=== PATIENT | male | born 1945 | race Caucasian/White ===

== ENCOUNTER 2019-12-31 11:23 | Inpatient (IN) | payer MEDICARE, MEDICAID ==
[~2019-12-31] VITALS: Ht 185.4 cm; Wt 93.9 kg
[~2019-12-31 11:23] MED LIST: ACET325T38 PO; IBUP800T26; LISI1TAB6 PO; MELO-15; MELO-170 PO; METF500T4 PO; OMEG1000 PO; PIOG15TA22 PO; SIMV40TA4 PO; TRAM50TA2; TRM50T PO
--- NOTE | 2019-12-31 11:50 | NUR ---
f pt name] admitted to room 228-1, with an admitting diagnosis of hand fracture, on 12/31/19 from [facility] via private vehicle, accompanied by EILEEN Archibald ([email or web address]).GAB ARCHIBALD introduced to surroundings, call light, bed controls, phone, TV, temperature control, lights, meal times, smoking policy, visitor policy, side rail policy, bathrooms and showers. Patient Rights given to patient in the handbook.GAB ARCHIBALD verbalizes understanding that [facility] is not responsible for the loss or damage to any personal effects or valuables that are kept in the patients posession during their hospitalization. The Patient Care Plans were discussed with DPOA and patient as well as ARU protocols and information on our interdisciplinary Discharge Planning. GAB ARCHIBALD verbalizes understanding of Interdisciplinary Patient Education. Patient and/or family were informed about the Rapid Response Team and its purpose. Patient received Patient Rights Booklet, which includes Privacy Act Statement and Data Collection Information Summary.
[2019-12-31] MEDS ORDERED: FLEET ENEMA ADULT 1 EA BTL PR PRN (12:00)
[2019-12-31] MEDS ORDERED: LACTULOSE SYRUP 10GM/15ML (ENULOSE) 30ML UDC PO PRN (12:00)
[2019-12-31] MEDS ORDERED: diphenhydrAMINE 25 MG TAB (BENADRYL) PO PRN (12:00)
[2019-12-31] MEDS ORDERED: ONDANSETRON 4 MG (ZOFRAN) ORAL DISSOLVE TAB PO PRN (12:00)
[2019-12-31] MEDS ORDERED: DOCUSATE SODIUM 100 MG (COLACE) CAP PO PRN (12:00)
[2019-12-31] MEDS ORDERED: ALPRAZolam 0.25 MG (XANAX) TAB PO PRN (12:00)
[2019-12-31] MEDS ORDERED: LOPERAMIDE 2 MG (IMODIUM) TABLET PO PRN (12:00)
[2019-12-31] MEDS ORDERED: CALCIUM CARBONATE 500 MG (TUMS) TAB.CHEW PO PRN (12:00)
[2019-12-31] MEDS ORDERED: BISACODYL 10 MG SUPP (DULCOLAX) PR PRN (12:00)
[2019-12-31] MEDS ORDERED: oxyCODONE/APAP 10/325MG (PERCOCET 10) TABLET PO PRN (12:00)
[2019-12-31 12:40] VITALS: BP 161/73
[2019-12-31] MEDS ORDERED: AMLO10TA7 PO (13:09)
[2019-12-31] MEDS ORDERED: ASPI-983 PO (13:09)
[2019-12-31] MEDS ORDERED: MONT10TA26 PO (13:14)
[2019-12-31] MEDS ORDERED: METF-865 PO (13:14)
[2019-12-31] MEDS ORDERED: IPRA3AMP31 IH (13:14)
[2019-12-31] MEDS ORDERED: HYDR-4227 PO (13:14)
[2019-12-31] MEDS ORDERED: FLUT1DIS26 IH (13:14)
[2019-12-31] MEDS ORDERED: SIMV40TA25 PO (13:14)
--- NOTE | 2019-12-31 13:15 | NUR ---
I ENTERED THE MED REC USING THE DISCHARGE ORDER FROM [facility] AFTER THE MEDICATIONS ARE CONTINUED I WILL INTERVIEW THE PT AND UPDATE THE MED REC AND NOTES NEEDED Addendum: 01/02/20 at 1324 by ALEKSANDER DELA CRUZ CPhT I SPOKE WITH THE PT AND WENT THRU THE EXT MED HISTORY TO COMPLETE THE MED REC THE FOLLOWING MEDS WERE REMOVED SINCE THE PT WAS NOT USING PRIOR TO [facility]: [place] 10MG DUONEB NORCO 7.5/325MG ADVAIR DISKUS 250/50 SIMVASTATIN 40MG- THE DIRECTIONS ON THE [facility] DISCHARGE SAY "1 TAB HS" HOWEVER THE PT TAKES IT IN THE MORNING.
--- NOTE | 2019-12-31 13:47 | Occupational Therapy Eval ---
OT Evaluation-General/PLF Medical Diagnosis Admission Date December 31, 2019 at 11:50 Medical Diagnosis: L 4th/ 5th metacarpal fx, s/p fall Onset Date: December 30, 2019 Therapy Diagnosis Therapy Diagnosis: Decreased ADL status Height/Weight Height (Feet): 5 Height (Inches): 6.00 Weight (Pounds): 204 Precautions Precautions/Isolations: Standard Precautions Safety Interventions: Bed Exit Alarm Weight Bear Status Pt to wear sling on LUE during all tasks. Can be removed during dressing tasks. Referral Physician: Cheryl Lafleur DO Referral Reason: Activity Tolerance, Self Care, Evaluation/Treatment, Strengthening/ROM Medical History Pertinent Medical History: COPD, DM, HTN Additional Medical History brain tumor and removal ~40 years ago, HTN, DM, COPD, smoker Current History s/p fall outside, hit L side of face (denies LOC), L eye hematoma, L UE 4th/ 5th metacarpal fx and presents in sling (pending decreased edema to see if surgery rendered). Reviewed History: Yes Social History Home: Single Level Current Living Status: Alone Entry Into Home: Level Entry Steps Into Home: 0 ADL-Prior Level of Function SCALE: Activities may be completed with or without assistive devices. 7-Swdyoxxpyz-hmulpaa completes the activity by him/herself with no assistance from a helper. 5-Set-up or Clean-up Assistance-helper sets up or cleans up; patient completes activity. [place] assists only prior to or following the activity. 4-Supervision or Touching Assistance-helper provides verbal cues and/or touching/steadying and/or contact guard assistance as patient completes activity. Assistance may be provided throughout the activity or intermittently. 3-Partial/Moderate Assistance-helper does LESS THAN HALF the effort. [place] lifts, holds or supports trunk or limbs, but provides less than half the effort. 2-Substantial/Maximal Assistance-helper does MORE THAN HALF the effort. [place] lifts or holds trunk or limbs and provides more than half the effort. 4-Qtbpqxdpg-ndfurf does ALL the effort. Patient does none of the effort to complete the activity. Or, the assistance of 2 or more helpers is required for the patient to complete the activity. If activity was not attempted, code reason: 7-Patient Refused. 9-Not Applicable-not attempted and the patient did not perform the activity before the current illness, exacerbation or injury. 10-Not Attempted due to Environmental Limitations-(lack of equipment, weather restraints, etc.). 88-Not Attempted due to Medical Conditions or Safety Concerns. ADL PLOF Comments Pt states IND with ADL tasks (states no use of AE). Pt receives care from daughter in law (Noa) and another caregiver throughout the week for SUP and IADL tasks. Self Care: Independent Functional Cognition: Needed Some Help DME/Equipment: Grab Bars, Shower DME/Equipment Comments grab bars in shower and by toilet, walk in shower Occupation: disabled Drive Self: No Leisure Interests: "walking around [facility]" OT Current Status Subjective OT eval/ individual tx [id number]-: Pt seen in bed/ reclined. Pt states min pain in L arm, pt states his "arm is broken." Pt oriented to person/ situation, states he fell. Pt acknowledges he is in hospital, educated on ARU expectations. Pt agrees to therapy session. OT/ PT co-treat: [id number] (20): Pt seen post-MACHINE OILER session. Co-treat rendered due to pt's decreased safety awareness, decreased balance and problem solving, and need for 2 skilled therapists to meet these needs. OT addresses ADL tasks and UE movement as PT focuses on gross motor/ balance tasks/ gait. Pt agrees to co-treat. Mental Status/Objective Patient Orientation: Person, Situation Current Glasses/Contacts: No Hearing Aids: No Dentures/Partials: Yes Hand Dominance: Right Upper Extremity ROM WFL RUE Impaired shoulder activity (<90* flexion), unable to complete PROM due to pt resisting (unable to comprehend task) Upper Extremity Coordination L decreased (pt in wraps and in sling). R decreased (limited 5th digit movement) Upper Extremity Sensation states paresthesias UE and LE. Upper Extremity Strength Decreased BUE (3+/5) Edema: unable to assess L hand due to wraps. ADL-Treatment Eating (QC): 5 (pt requires s/u for package opening) Oral Hygiene (QC): 5 (s/u per clinical judgment. ) Shower/Bathe Self (QC): 3 (Pt requires min A for feet management and CGA in stance for bottom/ douglas hygiene. ) Upper Body Dressing (QC): 2 (max A doffing (sling and shirt), max A donning. Pt educated on donning over LUE first, requires max A due to decreased problem solving and strength in UE. ) Lower Body Dressing (QC): 3 (min A during threading task and pulling over hips (due to decreased fingertip sensation and power plant superintendent strength)) On/Off Footwear (QC): 2 (max A socks and shoes on this date. Pt attempts multiple trials, states cannot complete. Pt states caregiver can assist if needed but he is typically able to complete. ) Toileting Hygiene (QC): 4 (CGA in stance for bottom hygiene. ) Other Treatments OT individual eval/ treat: 5380-5410 (55 min) Pt seen in bed. Pt provides hx; semi-poor historian, stating he is IND with all tasks. Per PT who spoke with daughter in law, daughter in law and caregiver present (on rotation) through week and pt limited to ~2-3 hours of alone time during day. Pt states he is IND without AE, has had multiple falls, walks around [place] during day and denies additional activities. Pt completes bed mob with increased time, sits EOB, demonstrates impulsivity/ decreased safety awareness when education provided for platform walker use. Pt utilizes R hand, does not place L forearm on platform. Pt educated on use/ demonstration provided, pt does not utilize but walks with CGA to recliner. Pt sits, completes UE dressing/ bathing tasks. Pt's food enters, pt eats (through this activity demonstration of feeding/ oral hygiene tasks). Pt given time to eat during this time, provided demonstration of HEP for RUE exercise/ strengthening. Chair alarm placed under pt during this time, pt educated on use of call light and auditory warning of chair alarm demonstrated and pt educated on sitting when hearing noise. OT/ PT co-treat: Pt completes sit to stand with CGA. Pt stands to complete doffing pants with min A (decreased power plant superintendent/ pinch strength). Pt able to complete douglas and bottom hygiene with CGA. Pt doffs pants to re-don in sitting. Pt able to reach BLE for threading LEs, requires assist in stance to machine puller and laster hips. Pt requires assist with socks and shoe management at this time due to the decrease of LUE and strength of RUE. Pt stands and PT addresses gait, attempting multiple ADs, pt ambulates to therapy gym with CGA x2 and use of SPC. Pt sits EOM, all needs met, pt left with PT at this time. All questions addressed. Education OT Patient Education: Correct positioning, Energy conservation, Exercise program, Home exercise program, Purpose of tx/functional activities, Rehab process, Safety issues Teaching Recipient: Patient Teaching Methods: Demonstration, Discussion Response to Teaching: Verbalize Understanding, Return Demonstration, Reinforcement Needed OT Short Term Goals Short Term Goals Time Frame: January 07, 2020 Upper body dressin Lower body dressin OT [place] Goals Jail Goals Time Frame: January 14, 2020 Eating (QC): 6 Oral Hygiene (QC): 6 Toileting Hygiene (QC): 6 Shower/Bathe Self (QC): 4 Upper Body Dressing (QC): 6 Lower Body Dressing (QC): 6 On/Off Footwear (QC): 6 1=Demonstrate adherence to instructed precautions during ADL tasks. 2=Patient will verbalize/demonstrate understanding of assistive devices/modifications for ADL. 3=Patient will improve strength/tolerance for activity to enable patient to perform ADL's. OT Education/Plan Problem List/Assessment Assessment: Decreased Activ Tolerance, Decreased Safety Aware, Decreased UE Strength, Dependent Transfers, Impaired Cognition, Impaired Coordination, Impaired Funct Balance, Impaired I ADL's, Impaired Self-Care Skills Discharge Recommendations Plan/Recommendations: Continue POC Therapy Discharge Recommendati: 24 Hour Supervision, Home & Family Equpiment Recommendations-D/C: Bath Chair Treatment Plan/Plan of Care Treatment,Training & Education: Yes Patient would benefit from OT for education, treatment and training to promote independence in ADL's, mobility, safety and/or upper extremity function for ADL's. Plan of Care: ADL Retraining, Functional Mobility, Group Exercise/Act as Ind, Orthotic Fitting/Training, UE Funct Exercise/Act Treatment Duration: January 14, 2020 Frequency: At least 5 of 7 days/Wk (IRF) Estimated Hrs Per Day: 1.5 hours per day Agreement: Yes Rehab Potential: Fair Time/GCodes Start Time: 12:50 (1425) Stop Time: 13:45 (1445) Total Time Billed (hr/min): 75 Billed Treatment Time OT individual eval/ treat: 4138-4827 1, EVM (10), ADL 3 (45)= 55 OT/ PT co-treat: [id number] (20): 1, ADL (20) Co-treat rendered due to pt's decreased safety awareness, decreased balance and problem solving, and need for 2 skilled therapists to meet these needs. OT addresses ADL tasks and UE movement as PT focuses on gross motor/ balance tasks/ gait. Pt agrees to co-treat. Total: 75 GEORGI MANZANARES OTR December 31, 2019 13:47
[2019-12-31] MEDS: RT-ALBUTEROL/IPRATROPIUM 3 ML (DUONEB) VIAL INH SCH ×3 (14:18→21:06)
--- NOTE | 2019-12-31 14:36 | ST Cognitive Linguistic Eval ---
Speech Evaluation-General Medical Diagnosis L 4th/ 5th metacarpal fx, s/p fall Therapy Diagnosis Therapy Diagnosis: Cognitive-communication Referral Referring Physician: Dr. Lafleur Medical History Reviewed History: Yes Social History Home: Apartment Current Living Status: Alone Speech PLF-Current Status Prior Level of Function Patient lived home alone with support from his tfrraajm-fg-qdq. Subjective Patient was pleasant and cooperative with the cognitive assessment. Pain Location: Left Location Body Site: Arm Pain Description: Ache, Throbbing Language Eval: Auditory Comprehends Simple Yes/No Ques: Functional Indent/Objects Multiple Soto: Mild Ident/Pics in Multiple Soto: Moderate Follows 1-Step Commands: Mild Follows Complex Directions: Moderate Follows General Conversations: Mild Language Eval: Verbal Language Completes Spontaneous Greeting: Functional Produces Auto, Serial Info: Functional Imitates Simple Words/Phrases: Mild Word Finding: Moderate Requests Basic Needs: Mild States Basic Personal Info: Moderate Expresses Complex Ideas: Moderate Objective Cognitive Domain Attention: Mild Memory: Moderate Problem Solving: Moderate Executive Functions: Moderate Visuospatial Skills: Moderate Composite Severity Rating: Moderate Objective Formal/Standardized Tests [facility] Status ([facility]) Results 9/30, Moderate Dementia Level of Function Oral Motor/Speech Production Patient has mild decrease in intelligibility due to edentulous and fractured Mandible. Patient is understood at 80-90%. Impression Patient is a pleasantly confused 74 y/o gentleman who was admitted to the ARU s/p fall with injuries. Patient was given the SLUMS with a score of 9/30 obtained. Patient also completed informal tasks for following directions and sequencing. Patient's ability to stay focused is impaired, although this is most likely not a new behavior. He was pleasant and worked on the tasks with verbal and visual cuing given frequently. The patient will receive skilled ST services for cognitive deficits in order for him to return to his new apartment safely. Speech Patient Assess Expression of Ideas/Wants: Frequently (2) Understanding Verbal Content: Usually Understands (3) Brief Interview-Mental Status: Yes Repetition of Three Words: Two (2) Temporal Orientation: Year: Missed by 1 year (2) Temporal Orientation: Month: Missed by 6 days-1 month (1) Temporal Orientation: Day: Incorrect or No Answer(0) Recall : Wear to say "Sock": No, could not recall (0) Recall : Color: No, could not recall (0) Recall : Bed: No, could not recall (0) Memory/Recall Ability: That he or she is in a hsp/hsp unit Speech Short Term Goals Short Term Goals Short Term Goals 1) Patient will complete memory tasks as directed with 75% accuracy given minimal cues. 2) Patient will complete sequencing tasks as directed with 75% accuracy given minimal cues. j3) Patient will complete following directional tasks as directed with 75% accuracy given minimal cues. Speech Shredder Tender Peat Goals Shredder Tender Peat Goals Patient will improve his cognitive-communicative status so that he may require minimal assist and/or cues. Speech-Plan Patient/Family Goals Patient/Family Goals: Patient plans on discharging to a new apartment. Discharge planning will be determined at a later time with caregivers and rehab team input. Treatment Plan Speech Therapy Treatment Plan: Continue Plan of Care Treatment Duration: January 16, 2020 Frequency: 5 times per week Estimated Hrs Per Day: .5 hour per day Rehab Potential: Guarded Barriers to Learning: Patient's current level of function, cognitive deficits, decreased safety awareness Pt/Family Agrees to Plan: Yes Safety Risks/Education Teaching Recipient: Patient Teaching Methods: Discussion Response to Teaching: Verbalize Understanding Education Topics Provided: Safety within his room, utilization of the call light as needed Time Speech Therapy Time In: 13:55 Speech Therapy Time Out: 14:25 Total Billed Time: 30 Billed Treatment Time 1[address] December 31, 2019 14:36
--- NOTE | 2019-12-31 15:25 | Physical Therapy Evaluation ---
PT Evaluation-General Medical Diagnosis Admission Date December 31, 2019 at 11:50 Medical Diagnosis: L 4th/ 5th metacarpal fx, s/p fall Onset Date: December 30, 2019 Therapy Diagnosis Therapy Diagnosis: impaired mobility, strength, endurance, balance Height/Weight Height (Feet): 5 Height (Inches): 6.00 Weight (Pounds): 204 Precautions Precautions/Isolations: Fall Prevention, Standard Precautions Weight Bear Status sling left arm Referral Physician: Cheryl Lafleur DO Reason for Referral: Evaluation/Treatment Medical History Pertinent Medical History: COPD, DM, HTN Reviewed History: Yes Social History Home: Single Level Current Living Status: Alone Entry Into Home: Level Entry PT Steps Into Home: 0 Patient has caregivers. Prior Prior Level of Function SCALE: Activities may be completed with or without assistive devices. 6-Shdogswlrp-ntkcylu completes the activity by him/herself with no assistance from a helper. 5-Set-up or Clean-up Assistance-helper sets up or cleans up; patient completes activity. [place] assists only prior to or following the activity. 4-Supervision or Touching Assistance-helper provides verbal cues and/or touching/steadying and/or contact guard assistance as patient completes activity. Assistance may be provided throughout the activity or intermittently. 3-Partial/Moderate Assistance-helper does LESS THAN HALF the effort. [place] lifts, holds or supports trunk or limbs, but provides less than half the effort. 2-Substantial/Maximal Assistance-helper does MORE THAN HALF the effort. [place] lifts or holds trunk or limbs and provides more than half the effort. 3-Pcklgtdrj-isuhuy does ALL the effort. Patient does none of the effort to complete the activity. Or, the assistance of 2 or more helpers is required for the patient to complete the activity. If activity was not attempted, code reason: 7-Patient Refused. 9-Not Applicable-not attempted and the patient did not perform the activity before the current illness, exacerbation or injury. 10-Not Attempted due to Environmental Limitations-(lack of equipment, weather restraints, etc.). 88-Not Attempted due to Medical Conditions or Safety Concerns. Bed Mobility: 6 Transfers (B,C,W/C): 6 Gait: 6 Stairs: 6 Indoor Mobility (Ambulation): Independent Stairs: Independent PT Evaluation-Current Subjective Patient has no complaints of pain at rest. Will be co-treating for part of treatment with OT due to poor patient mobility, safety awareness, strength, endurance, balance, the need to coordinate UE and LE during activity, decrease fall risk. Pt/Family Goals to be independent at home Objective Patient Orientation: Person, Confused sling left arm ROM/Strength ROM Lower Extremities WNL Strength Lower Extremities 4+/5 gross LLE, 4/5 gross RLE Neuromuscular (Tone, Coordination, Reflexes) Patient has a swollen face below his left eye. He has decreased peripheral vision on the left side and has trouble with tracking in general. Sensory Vision: Hearing: Hand Dominance: Right Sensation Right Lower Extremit: Intact Sensation Left Lower Extremity: Intact Transfers Roll Left to Right (QC): 6 Sit to Lying (QC): 6 Lying to Sitting/Side of Bed(Q: 6 Sit to Stand (QC): 4 Chair/Irc-xc-Xhhzl Xfer(QC): 4 Toilet Transfer (QC): 4 Car Transfer (QC): 4 Patient performs bed mobility with independence, supine <-> sit with independence, sit <-> stand CGA, transfers CGA, car transfer CGA. Patient is unsteady but did not have a LOB, patient needs frequent cues for safety and positioning, he can be impulsive. Gait Does the Patient Walk?: Yes Mode of Locomotion: Walk Anticipated Mode of Locomotion: Walk Walk 10 feet (QC): 4 Walk 50 ft with 2 Turns(QC): 4 Walk 150 ft (QC): 88 Walking 10ft/uneven surface-QC: 4 Distance: 120'x2 Gait Assistive Device: Cane Single Point Comments/Gait Description Patient can ambulate 120' with a SPC with CGA (including 50' with at least 2 turns of 90 degrees and 10' over an uneven surface. Patient is unsteady and nee ds frequent cues for safety and direction. He cannot use a platform walker because his sling has to stay on and he doesn't use a hemiwalker correctly and cannot follow directions to use it correctly. Half the time he just lifts the cane and carries it. Wheelchair Training Does the Pt Use a Wheelchair?: No Wheel 50 ft with 2 turns (QC): 9 Wheel 150 ft (QC): 9 Stairs #of Steps: 4 1 Step (curb) (QC): 3 4 Steps (QC): 3 12 Steps (QC): 88 Patient can go up and down 4 steps using 1 handrail with min assist. Patient needs cues for safety and foot placement. Very unsteady. Balance Sitting Static: Normal Sitting Dynamic: Normal Standing Static: Fair Standing Dynamic: Fair Picking up an Object (QC): 88 Treatment NuStep level 4 for 15 min. Also co-treated with OT for dressing and LE bathing. Assessment/Needs Patient has impaired mobility, strength, endurance, balance. Patient has poor safety awareness and needs cues that. Patient in bed post tx with nurse call, phone, tray, bed alarm on. Rehab Potential: Fair PT Short Term Goals Short Term Goals Time Frame: January 07, 2020 Roll Left & Right: 6 Sit to lyin Lying to sitting on side of be: 6 Sit to stand: 4 Chair/czp-he-ebjbm transfer: 4 Walk 10 feet: 4 Walk 50 feet with two turns: 4 Walk 150 feet: 4 PT Assisted Goals Assisted Goals PT [employer] Screen Printer Machine Goals Time Frame: Jan 21, 2020 Roll Left & Right (QC): 6 Sit to Lying (QC): 6 Lying-Sitting on Side/Bed(QC): 6 Sit to Stand (QC): 6 Chair/Bzc-wu-Hrkvn Xfer(QC): 5 Toilet Transfer (QC): 5 Car Transfer (QC): 5 Does the Patient Walk: Yes Walk 10 feet (QC): 5 Walk 50ft with 2 Turns (QC): 5 Walk 150 ft (QC): 5 Walking 10ft on Uneven Surface: 5 1 Step (curb) (QC): 4 4 Steps (QC): 4 12 Steps (QC): 4 Picking up an Object (QC): 5 Wheel 50 feet with 2 turns (QC: 9 Wheel 150 feet: 9 PT Plan Problem List Problem List: Activity Tolerance, Functional Strength, Safety, Balance, Gait, Transfer Treatment/Plan Treatment Plan: Continue Plan of Care Treatment Plan: Education, Functional Activity [place], Functional Strength, Group Therapy, Gait, Safety, Therapeutic Exercise, Transfers Treatment Duration: Jan 21, 2020 Frequency: At least 5 of 7 days/Wk (IRF) Estimated Hrs Per Day: 1.5 hours per day Patient and/or Family Agrees t: Yes Safety Risks/Education Patient Education: Gait Training, Transfer Techniques, Steps, Reviewed Precautions, Correct Positioning, Safety Issues Teaching Recipient: Patient Teaching Methods: Demonstration, Discussion Response to Teaching: Reinforcement Needed Discharge Recommendations Plan Patient will perform bed mobility and transfer training, balance and endurance training, functional strengthening, stair training, gait training, and education, to improve functional mobility and independence at home. Therapy Discharge Recommendati: Home & Family Time/GCodes Time In: 1155 Time Out: 1525 Total Billed Treatment Time: 75 Total Billed Treatment 1 visit EVM 15' EX 15' FA 45' PT eval from [id number], co-treat with OT from [id number], PT treatment from 1445- 1525. PT during co-treatment worked on balance and positioning during bathing and dressing and ambulation, OT worked on bathing and dressing and assist with cues for safety and direction during ambulation. MAYRA MCCRACKEN PT December 31, 2019 15:25
[2019-12-31 16:02] VITALS: BP 124/65
[2019-12-31] MEDS: ENOXAPARIN 40 MG/0.4 ML (LOVENOX) SYR SC SCH (16:28)
[2019-12-31] MEDS: HYDROcodone/APAP 7.5 MG/325 MG (LORTAB, LORCET PLUS) TABLET PO PRN (18:33)
[2019-12-31] MEDS ORDERED: PATIENT MAY USE OWN MED,SINGLE MED PO SCH (18:45)
[2019-12-31] MEDS: polyethylene glycoL POWDER 17 GM (MIRALAX) PACK PO SCH (19:36)
[2019-12-31] MEDS ORDERED: ADVAIR HFA 115/21 MCG INHALER 8 GM IH SCH (20:00)
--- NOTE | 2019-12-31 20:38 | PM&R Post Admission Assessment ---
PM&R HP Date of Visit: December 31, 2019 Time of Visit: 12:30 History of Present Illness CC: Fall with severe injuries in prior brain surgery patient HPI: This is a 74yoWM clinic patient of Rita Talavera who presents to IRF following an observation admit to [facility] on my service after a fall at home which resulted in left hand shattered fracture with left facial soft tissue injury. 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 Patient has a h/o HTN HLP and DM and continues to smoke 2 ppd with cigars. Patient was wheezing in exam this morning so I gave him 1 dose of Solumedrol and Nebs. PLOF was independent without to recommended use of 2 walkers and a cane he has at home. BM+ per patient and will confirm this with RN. Pain is well controlled and he has no other complaints. Family requesting Dr Vila consult. Dr Marin evaluated the patient from a trauma standpoint in [facility]. Past Jihfynx-Atiyel-Gykism Hx Past Med/Social Hx: Reviewed Nursing Past Med/Soc Hx, Reviewed and Corrections made Patient Social History Marrital Status: single Employed/Student: unemployed Alcohol Use: Denies Use Recreational Drug Use: No Smoking Status: Current Everyday Smoker Type Used: Cigarettes Physical Abuse Screen: No Sexual Abuse: No Recent Foreign Travel: No Contact w/other who traveled: No Recent Hopitalizations: Yes ([facility]) Recent Infectious Disease Expo: No Seasonal Allergies Seasonal Allergies: No Past Medical History Surgeries: Adenoidectomy, Orthopedic brain surgery at 34yo Respiratory: COPD Currently Using CPAP: No Currently Using BIPAP: No Cardiac: Coronary Artery Disease, High Cholesterol, Hypertension Neurological: Stroke Genitourinary: Kidney Stones, Renal Failure Musculoskeletal: Arthritis, Chronic Back Pain, Fractures Endocrine: Diabetes, Non-Insulin dep HEENT: Cataract 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 No Pertinent Family Hx Prior Level of Function Bed Mobility: 6 Transfers: 6 Gait: 6 Stairs: 6 Indoor Mobility (Ambulation): Independent Stairs: Independent Self Care: Independent Functional Cognition: Needed Some Help Occupation: disabled Drive Self: No Leisure Interests: "walking around [place]" Current Level of Fuctioning Roll Left to Right: 6 Sit to Lyin Lying to Sitting/Side of Bed: 6 Sit to Stand: 4 Chair/Pxm-ov-Yhnta Xfer: 4 Car Transfer: 4 Does the Patient Walk: Yes Mode of Locomotion: Walk Anticipated Mode of Locomotion: Walk Walk 10 feet: 4 Walk 50 ft with 2 Turns: 4 Walking 10ft on uneven surface: 4 Gait Assistive Device: Cane Single Point Does the Pt Use a Wheelchair: No #of Steps: 4 1 Step (curb): 3 4 Steps: 3 12 Steps: 88 Picking up an Object: 88 Eatin (pt requires s/u for package opening) Oral Hygiene: 5 (s/u per clinical judgment. ) Shower/Bathe Self: 3 (Pt requires min A for feet management and CGA in stance for bottom/ douglas hygiene. ) Upper Body Dressin (max A doffing (sling and shirt), max A donning. Pt educated on donning over LUE first, requires max A due to decreased problem solving and strength in UE. ) Lower Body Dressin (min A during threading task and pulling over hips (due to decreased fingertip sensation and booster pump operator strength)) On/Off Footwear: 2 (max A socks and shoes on this date. Pt attempts multiple trials, states cannot complete. Pt states caregiver can assist if needed but he is typically able to complete. ) Toileting Hygiene: 4 (CGA in stance for bottom hygiene. ) PM&R Allergy/Meds/Data Review Allergies Coded Allergies: No Known Drug Allergies (Unverified , 01/14/15) Home Medications Scheduled Amlodipine Besylate (Amlodipine Besylate), 10 MG PO DAILY, (Reported) Aspirin (Aspirin EC), 81 MG PO DAILY, (Reported) Fluticasone/Salmeterol (Advair 250-50 Diskus), 1 EACH IH BID, (Reported) Ipratropium/Albuterol Sulfate (Iprat-Albut 0.5-3(2.5) mg/3 ml), 3 ML IH TID, (Reported) Metformin HCl (Metformin HCl ER), 500 MG PO DAILY, (Reported) Montelukast Sodium (Montelukast Sodium), 10 MG PO DAILY, (Reported) Simvastatin (Simvastatin), 40 MG PO HS, (Reported) Scheduled PRN Hydrocodone/Acetaminophen (Dushore 7.5-325 Tablet), 1 TAB PO Q4H PRN for PAIN- MODERATE (5-7), (Reported) Discontinued Medications Acetaminophen (Tylenol), 650 MG PO Q6H PRN for MILD PAIN OR FEVER, (Reported) Discontinued Reason: No Longer Taking Hctz/Lisinopril (Lisinopril-Hctz 10-12.5 Mg Tab), 1 TAB PO DAILY, (Reported) Discontinued Reason: No Longer Taking Meloxicam (Mobic), 7.5 MG PO DAILY, (Reported) Discontinued Reason: No Longer Taking Metformin Hcl (Metformin Hcl), 500 MG PO BID, (Reported) Discontinued Reason: No Longer Taking [place]-3 Fatty Acids (Fish Oil Concentrate), 2,000 MG PO BID, (Reported) Discontinued Reason: No Longer Taking Pioglitazone Hcl (Pioglitazone Hcl), 15 MG PO DAILY, (Reported) Discontinued Reason: No Longer Taking Simvastatin (Simvastatin), 40 MG PO HS, (Reported) Discontinued Reason: No Longer Taking Tramadol HCl (Tramadol HCl), 50 MG PO Q6H PRN for PAIN, (Reported) Discontinued Reason: No Longer Taking Current Medications Current Medications Reviewed Review of Systems Constitutional: see HPI, dizziness, malaise, weakness EENTM: mouth pain, other (left face pain) Respiratory: cough, dyspnea on exertion, wheezing Cardiovascular: no symptoms reported Gastrointestinal: constipation Genitourinary: no symptoms reported Musculoskeletal: back pain, joint pain, muscle pain, muscle stiffness, muscle cramps Skin: no symptoms reported Psychiatric/Neurological: Anxiety, Depressed, Pre-Existing Deficit, Weakness All Other Systems Reviewed Negative Unless Noted: Yes Physical Exam Physical Exam Vital Signs Vital Signs - First Documented 12/31/19 12/31/19 12:30 12:40 Temp 37.4 Pulse 83 Resp 20 B/P (MAP) 161/73 Pulse Ox 92 O2 Delivery Room Air Capillary Refill : Height, Weight, BMI Height: 5'6.00" Weight: 204lbs. oz. 92.637663en; 26.76 BMI Method:Stated General Appearance: No Apparent Distress, WD/WN, Chronically ill Eyes: Bilateral Eye Normal Inspection, Bilateral Eye PERRL HEENT: Pharynx Normal, Other (left eyelid edematous with bruising) Neck: Full Range of Motion, Normal Inspection, Non Tender, Supple, Carotid Bruit Respiratory: Chest Non Tender, No Accessory Muscle Use, No Respiratory Distress, Decreased Breath Sounds, Rales, Wheezing Cardiovascular: Regular Rate, Rhythm, No Edema, No Gallop, No JVD, No Murmur, Normal Peripheral Pulses Gastrointestinal: Normal Bowel Sounds, No Organomegaly, No Pulsatile Mass, Non Tender, Soft Back: Normal Inspection, No CVA Tenderness, No Vertebral Tenderness Extremity: Normal Capillary Refill, Normal Inspection, Normal Range of Motion (except left arm in sling), Non Tender, No Calf Tenderness, No Pedal Edema Neurologic/Psychiatric: Alert, Oriented x3, No Motor/Sensory Deficits (pre-existing weakness left extremities from brain surgery hx), Normal Mood/Affect, clerical investigator II-XII Norm as Tested, Abnormal Gait Skin: Normal Color, Warm/Dry Lymphatic: No Adenopathy PM&R Medical Assessment & Plan REHAB/MEDICAL ASSESSMENT AND PLAN: REHAB IMPAIRMENT GROUP: Fall with left hand fracture and facial trauma ETIOLOGIC DIAGNOSIS: Fall with left hand fracture and facial trauma The comorbidities that impact the patients function and/or functional outcome by: h/o brain surgery gives rise to cognitive deficit, COPD with active smoking, Active wheezing, lives alone REHAB PLAN: The patient is being admitted to our comprehensive inpatient rehabilitation facility and can tolerate the intensity of service consisting of at least: 180 minutes of therapy a day, 5 out of 7 days a week Rehab treatment will consist of: ST will focus on cognitive deficits acute on chronic and PT OT will focus on preventing falls and navigate without the use of left hand The patient/family has a good understanding of our discharge process and will benefit from an interdisciplinary inpatient rehabilitation program. The patient has potential to make improvement and is in need of at least two of the following multidisciplinary therapies including but not limited to physical, occupational, speech, and prosthetics and orthotics. Additionally the patient will need services from respiratory, nutritional services, wound care, psychology, etc. (Customize this to each patient). Given the patients complex condition and risk of further medical complications, rehabilitation services cannot be safely or effectively provided at a lower level of care such as a fci facility. BARRIERS TO DISCHARGE: Lives alone with cognitive deficit ESTIMATED LOS: 7 days DISPOSITION: Home RELEVANT CHANGES SINCE PREADMISSION SCREENING: I have compared the patients medical and functional status at the time of the preadmission screening and there are: no changes PROGNOSIS: Good REHABILITATION GOALS: 1. ST will focus on cognitive deficits acute on chronic and PT OT will focus on preventing falls and navigate without the use of left hand All the above goals were reviewed with the patient and he/she is in agreement. By signing this document, I acknowledge that I have personally performed a full physical examination on this patient within 24 hours of admission to this inpatient rehabilitation facility and have determined the patient to be able to tolerate the above course of treatment at an intensive level for a reasonable period of time. I will be completing a detailed individualized Plan of Care for this patient by day #4 of the patients stay based upon the Preadmission Screen, the Post-Admission Evaluation, and the therapy evaluations. Admission Dx/Comorbidities: (1) Facial hematoma ICD Codes: S00.83XA - Contusion of other part of head, initial encounter (2) Left hand fracture ICD Codes: S62.92XA - Unspecified fracture of left wrist and hand, initial encounter for closed fracture (3) History of brain surgery ICD Codes: Z98.890 - Other specified postprocedural states (4) Cognitive deficits ICD Codes: R41.89 - Other symptoms and signs involving cognitive functions and awareness (5) COPD (chronic obstructive pulmonary disease) ICD Codes: J44.9 - Chronic obstructive pulmonary disease, unspecified (6) Wheezing ICD Codes: R06.2 - Wheezing (7) Smoker ICD Codes: F17.200 - Nicotine dependence, unspecified, uncomplicated (8) Diabetes ICD Codes: E11.9 - Type 2 diabetes mellitus without complications (9) Hypertension ICD Codes: I10 - Essential (primary) hypertension (10) Hyperlipemia ICD Codes: E78.5 - Hyperlipidemia, unspecified FAUSTINO GAITAN DO December 31, 2019 20:38
[2019-12-31] MEDS: DOCUSATE SODIUM 100 MG (COLACE) CAP PO SCH (20:54)
[2019-12-31] MEDS: SENNA W/DOCUSATE (SENOKOT S) TABLET PO SCH (20:54)
[2019-12-31] MEDS ORDERED: RT-ALBUTEROL/IPRATROPIUM 3 ML (DUONEB) VIAL IH SCH (21:00)
[2019-12-31] MEDS ORDERED: NON-FORMULARY MEDICATION 1 EA EA (Fluticasone/Salmeterol (Advair 250-50 Diskus) 1 EACH) IH SCH (21:00)
[2019-12-31] MEDS ORDERED: SIMvastatin 40 MG (ZOCOR) TAB PO SCH (21:00)
[2019-12-31] MEDS: ADVAIR DISKUS 250/50 IH SCH (21:06)
[2020-01-01] MEDS: RT-ALBUTEROL/IPRATROPIUM 3 ML (DUONEB) VIAL INH SCH ×6 (01:48→21:53)
[2020-01-01 04:42] LABS: BASOPHILS % (AUTO) 0 % (0-10); EOSINOPHILS % (AUTO) 0 % (0-10); HEMATOCRIT 38 % (40-54); HEMOGLOBIN 12.6 G/DL (13.3-17.7); LYMPHOCYTES # (AUTO) 1.4 X 10^3 (1.0-4.0); LYMPHOCYTES % (AUTO) 10 % (12-44); MEAN CORPUSCULAR HEMOGLOBIN 27 PG (25-34); MEAN CORPUSCULAR HGB CONC 33 G/DL (32-36); MEAN CORPUSCULAR VOLUME 83 FL (80-99); MEAN PLATELET VOLUME 9.9 FL (7.4-10.4); MONOCYTES % (AUTO) 8 % (0-12); NEUTROPHILS # (AUTO) 11.1 X 10^3 (1.8-7.8); NEUTROPHILS % (AUTO) 82 % (42-75); PLATELET COUNT 218 10^3/uL (130-400); RED CELL DISTRIBUTION WIDTH 14.8 % (10.0-14.5); WHITE BLOOD COUNT 13.5 10^3/uL (4.3-11.0)
[2020-01-01 05:02] LABS: ALBUMIN 3.8 GM/DL (3.2-4.5)
[2020-01-01 05:03] LABS: POTASSIUM 4.4 MMOL/L (3.6-5.0)
[2020-01-01 05:04] LABS: CALCIUM 8.8 MG/DL (8.5-10.1)
[2020-01-01 05:05] LABS: TOTAL PROTEIN 7.5 GM/DL (6.4-8.2)
[2020-01-01 05:07] LABS: BILIRUBIN,TOTAL 0.4 MG/DL (0.1-1.0)
[2020-01-01 05:09] LABS: CREATININE SERUM 1.52 MG/DL (0.60-1.30)
[2020-01-01 05:30] VITALS: BP 150/66
[2020-01-01] MEDS: ASPIRIN E.C. 81 MG (ECOTRIN) TAB PO SCH (08:03)
[2020-01-01] MEDS: metFORMIN XR 500 MG (GLUCOPHAGE XR) TAB PO SCH (08:03)
[2020-01-01] MEDS: MONTELUKAST 10 MG (SINGULAIR) TAB PO SCH (08:03)
[2020-01-01] MEDS: amLODIPine 10 MG (NORVASC) TAB PO SCH (08:04)
[2020-01-01] MEDS: SENNA W/DOCUSATE (SENOKOT S) TABLET PO SCH ×2 (08:15→20:32)
[2020-01-01] MEDS: DOCUSATE SODIUM 100 MG (COLACE) CAP PO SCH ×2 (08:15→20:32)
[2020-01-01] MEDS: polyethylene glycoL POWDER 17 GM (MIRALAX) PACK PO SCH ×2 (08:15→20:32)
--- NOTE | 2020-01-01 09:05 | Occupational Ther Daily Note ---
OT Current Status-Daily Note Subjective [id number]: Pt seen this am asleep/ supine in bed. Pt easily wakes, pt agrees to OT tx session, stating pain in L hand and in R shoulder/ 5th digit of RUE due to dislocation years ago (during pulling exercises). [id number]: Pt seen in recliner post-PT. Pt agrees to OT. Pt declines pain at this time. ADL-Treatment Therapy Code Descriptions/Definitions Functional [place] Measure: 0=Not Assessed/NA 4=Minimal Assistance 1=Total Assistance 5=Supervision or Setup 2=Maximal Assistance 6=Modified [place] 3=Moderate Assistance 7=Complete IndependenceSCALE: Activities may be completed with or without assistive devices. 5-Gkvdpozncy-ofbpxfj completes the activity by him/herself with no assistance from a helper. 5-Set-up or Clean-up Assistance-helper sets up or cleans up; patient completes activity. [place] assists only prior to or following the activity. 4-Supervision or Touching Assistance-helper provides verbal cues and/or touching/steadying and/or contact guard assistance as patient completes activity. Assistance may be provided throughout the activity or intermittently. 3-Partial/Moderate Assistance-helper does LESS THAN HALF the effort. [place] lifts, holds or supports trunk or limbs, but provides less than half the effort. 2-Substantial/Maximal Assistance-helper does MORE THAN HALF the effort. [place] lifts or holds trunk or limbs and provides more than half the effort. 0-Uhykuruev-dboumz does ALL the effort. Patient does none of the effort to complete the activity. Or, the assistance of 2 or more helpers is required for the patient to complete the activity. If activity was not attempted, code reason: 7-Patient Refused. 9-Not Applicable-not attempted and the patient did not perform the activity before the current illness, exacerbation or injury. 10-Not Attempted due to Environmental Limitations-(lack of equipment, weather restraints, etc.). 88-Not Attempted due to Medical Conditions or Safety Concerns. Eating (QC): 6 Oral Hygiene (QC): 7 Shower/Bathe Self (QC): 7 On/Off Footwear: 6 Toilet Transfer (QC): 4 (CGA in stance at toilet.) Other Treatment [id number] Pt completes UE theraband ex EOB (bed mob with IND). Pt unable to recall exercises of previous date, requires vc and demonstration to complete 3/3 exercises with success. pt c/o min pain in shoulder during activity with R UE, pt educated to move in tolerable range. Pt sit to stand with SBA, ambulates with SPC to therapy gym and stands at tabletop to complete reaching/ balance/ gri pping task with RUE (2# weight applied to wrist). Pt reaches in all planes with fair+ balance, pt c/o pain in shoulder and range adapted per comfort. Pt completes bicep curl and shoulder flexion exercises during rest break. Pt able to follow all directions per color/ pattern for peg removal. Pt's shoe laces replaced with adaptive elastic- pt unable to complete threading due to coor dination/ strength- pt able to provide thorough instructions based on pattern of other shoe to OT to thread. Pt dons shoes with IND with adaptive shoe laces. Returns to room, chair alarm on, call light on lap and pt educated hotel reservationist light use. [id number]: Pt desires bathroom, pt ambulates to bathroom SBA and toilets in stance with CGA. Pt stands in front of sink to doff/ don sling with vc only and increased time. Pt ambulates to therapy gym, completing graded clothes pin doffing/ donning on clothing/ able to find all clothes pins from clothing with increased time and min cues, and dons back onto pegs. Pinch strength assessed x3 with avg of 12 lbs pincer (RUE); supervisor cook house strength assessed with avg between 3 readings at 25 lbs (RUE) Pt returns to room, sits in recliner chair with chair alarm on, all needs met. Education OT Patient Education: Correct positioning, Exercise program, Home exercise program, Progress toward Goal/Update tx plan, Purpose of tx/functional activities Teaching Recipient: Patient Teaching Methods: Demonstration, Discussion Response to Teaching: Verbalize Understanding, Return Demonstration OT Short Term Goals Short Term Goals Time Frame: January 07, 2020 Upper body dressin Lower body dressin OT Wireless Internet Installer Goals Wireless Internet Installer Goals Time Frame: January 14, 2020 Eating (QC): 6 Oral Hygiene (QC): 6 Toileting Hygiene (QC): 6 Shower/Bathe Self (QC): 4 Upper Body Dressing (QC): 6 Lower Body Dressing (QC): 6 On/Off Footwear (QC): 6 1=Demonstrate adherence to instructed precautions during ADL tasks. 2=Patient will verbalize/demonstrate understanding of assistive devices/modifications for ADL. 3=Patient will improve strength/tolerance for activity to enable patient to perform ADL's. OT Education/Plan Problem List/Assessment Assessment: Decreased Activ Tolerance, Decreased UE Strength, Impaired Cognition, Impaired Coordination, Impaired Funct Balance, Impaired I ADL's, Impaired Self-Care Skills Discharge Recommendations Plan/Recommendations: Continue POC Therapy Discharge Recommendati: 24 Hour Supervision, Scheduled Assistance Treatment Plan/Plan of Care Treatment,Training & Education: Yes Patient would benefit from OT for education, treatment and training to promote independence in ADL's, mobility, safety and/or upper extremity function for ADL's. Plan of Care: ADL Retraining, Functional Mobility, Group Exercise/Act as Ind, Orthotic Fitting/Training, UE Funct Exercise/Act Treatment Duration: January 14, 2020 Frequency: At least 5 of 7 days/Wk (IRF) Estimated Hrs Per Day: 1.5 hours per day Agreement: Yes Rehab Potential: Fair Time/GCodes Start Time: 08:00 (1010) Stop Time: 09:00 (1030) Total Time Billed (hr/min): 80 (60+20) Billed Treatment Time [id number]: 1, ADL (15), EX 3 (45)= (60) [id number]: 1, ADL (20) Total: 80 GEORGI MANZANARES OTR January 01, 2020 09:05
[2020-01-01] MEDS: ADVAIR DISKUS 250/50 IH SCH ×2 (10:01→18:18)
--- NOTE | 2020-01-01 10:06 | Physical Therapy Daily Note ---
PT Daily Note-Current Subjective Patient in recliner pre tx, agrees to PT, has no complaints of pain. Appearance Patient in recliner post tx with nurse call, phone, tray, chair alarm on. Mental Status Patient Orientation: Person, Place, Situation left arm sling Transfers SCALE: Activities may be completed with or without assistive devices. 7-Ckeflxqcpk-euwnlst completes the activity by him/herself with no assistance from a helper. 5-Set-up or Clean-up Assistance-helper sets up or cleans up; patient completes activity. [place] assists only prior to or following the activity. 4-Supervision or Touching Assistance-helper provides verbal cues and/or touching/steadying and/or contact guard assistance as patient completes activity. Assistance may be provided throughout the activity or intermittently. 3-Partial/Moderate Assistance-helper does LESS THAN HALF the effort. [place] lifts, holds or supports trunk or limbs, but provides less than half the effort. 2-Substantial/Maximal Assistance-helper does MORE THAN HALF the effort. [place] lifts or holds trunk or limbs and provides more than half the effort. 7-Oczfraykt-jeaghb does ALL the effort. Patient does none of the effort to complete the activity. Or, the assistance of 2 or more helpers is required for the patient to complete the activity. If activity was not attempted, code reason: 7-Patient Refused. 9-Not Applicable-not attempted and the patient did not perform the activity before the current illness, exacerbation or injury. 10-Not Attempted due to Environmental Limitations-(lack of equipment, weather restraints, etc.). 88-Not Attempted due to Medical Conditions or Safety Concerns. Sit to Stand (QC): 4 Chair/Rbn-qx-Micup Xfer(QC): 4 Weight Bearing sling left arm Gait Training Distance: 400'x2 Walk 10 feet (QC): 4 Walk 50 ft with 2 Turns(QC): 4 Walk 150 ft (QC): 4 Gait Assistive Device: None Did not use a SPC because patient mostly just carries it around without using it. Patient ambulated without LOB, fair severino. Exercises Standing: Hip Abduction, Heel/toe raises, Marching, Mini squats Standing Reps: 20 LAQ alternating for 5 min with 2# ankle weights NuStep Minutes: 15 NuStep Workload: 5 Treatments transfers, ambulation, LE strengthening Assessment Current Status: Fair Progress Improved ambulation, patient not using an assistive device now PT Short Term Goals Short Term Goals Time Frame: January 07, 2020 Roll Left & Right: 6 Sit to lyin Lying to sitting on side of be: 6 Sit to stand: 4 Chair/oct-js-ukxko transfer: 4 Walk 10 feet: 4 Walk 50 feet with two turns: 4 Walk 150 feet: 4 PT Nursing Home Goals Claims Processor Goals PT Nursing Home Goals Time Frame: Jan 21, 2020 Roll Left & Right (QC): 6 Sit to Lying (QC): 6 Lying-Sitting on Side/Bed(QC): 6 Sit to Stand (QC): 6 Chair/Dqi-qa-Cfrwu Xfer(QC): 5 Toilet Transfer (QC): 5 Car Transfer (QC): 5 Does the Patient Walk: Yes Walk 10 feet (QC): 5 Walk 50ft with 2 Turns (QC): 5 Walk 150 ft (QC): 5 Walking 10ft on Uneven Surface: 5 1 Step (curb) (QC): 4 4 Steps (QC): 4 12 Steps (QC): 4 Picking up an Object (QC): 5 Wheel 50 feet with 2 turns (QC: 9 Wheel 150 feet: 9 PT Plan Problem List Problem List: Activity Tolerance, Functional Strength, Safety, Balance, Gait, Transfer Treatment/Plan Treatment Plan: Continue Plan of Care Treatment Plan: Education, Functional Activity [place], Functional Strength, Group Therapy, Gait, Safety, Therapeutic Exercise, Transfers Treatment Duration: Jan 21, 2020 Frequency: At least 5 of 7 days/Wk (IRF) Estimated Hrs Per Day: 1.5 hours per day Patient and/or Family Agrees t: Yes Safety Risks/Education Patient Education: Gait Training, Transfer Techniques, Correct Positioning, Safety Issues Teaching Recipient: Patient Teaching Methods: Demonstration, Discussion Response to Teaching: Reinforcement Needed Time/GCodes Time In: 0900 Time Out: 1000 Total Billed Treatment Time: 60 Total Billed Treatment 1 visit GT 30' EX 30' MAYRA MCCRACKEN PT January 01, 2020 10:06
--- NOTE | 2020-01-01 10:13 | PM&R Progress Note ---
Subjective HPI/CC On Admission Date Seen by Provider: January 01, 2020 Time Seen by Provider: 10:15 Subjective/Events-last exam Pt doing very well Creatinine 1.5 is baseline Lungs are completely clear today after and IV steroid dose yesterday before he left [facility] Nebulizer treatments are tolerated Pain medication is taken and it is doing well Overall having no new problems Accu chek will be started monitoring BID and will just monitor that and I might add a very low dose of Amaryl if those levels are elevated Conferred with RN Reviewed therapy notes Checked meds and labs Review of Systems General: Fatigue Musculoskeletal: arm pain Objective Exam Vital Signs Vital Signs Date Time Temp Pulse Resp B/P (MAP) Pulse Ox O2 Delivery O2 Flow Rate FiO2 01/01/20 18:18 94 Room Air 01/01/20 17:39 37.2 77 18 135/66 (89) Capillary Refill : Less Than 3 SecondsLess Than 3 Seconds General Appearance: No Apparent Distress, WD/WN, Chronically ill HEENT: Pharynx Normal, Other (left eyelid edematous with bruising) Neck: Full Range of Motion, Normal Inspection, Non Tender, Supple, Carotid Bruit Respiratory: Chest Non Tender, No Accessory Muscle Use, No Respiratory Distress, Decreased Breath Sounds, Rales, Wheezing Cardiovascular: Regular Rate, Rhythm, No Edema, No Gallop, No JVD, No Murmur, Normal Peripheral Pulses Gastrointestinal: Normal Bowel Sounds, No Organomegaly, No Pulsatile Mass, Non Tender, Soft Back: Normal Inspection, No CVA Tenderness, No Vertebral Tenderness Extremity: Normal Capillary Refill, Normal Inspection, Normal Range of Motion (except left arm in sling), Non Tender, No Calf Tenderness, No Pedal Edema Neurologic/Psychiatric: Alert, Oriented x3, No Motor/Sensory Deficits (pre- existing weakness left extremities from brain surgery hx), Normal Mood/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 FIM Transfers Therapy Code Descriptions/Definitions Functional [place] Measure: 0=Not Assessed/NA 4=Minimal Assistance 1=Total Assistance 5=Supervision or Setup 2=Maximal Assistance 6=Modified [place] 3=Moderate Assistance 7=Complete IndependenceSCALE: Activities may be completed with or without assistive devices. 4-Gbykbcyjvz-irwgwxp completes the activity by him/herself with no assistance from a helper. 5-Set-up or Clean-up Assistance-helper sets up or cleans up; patient completes activity. [place] assists only prior to or following the activity. 4-Supervision or Touching Assistance-helper provides verbal cues and/or touching/steadying and/or contact guard assistance as patient completes activity. Assistance may be provided throughout the activity or intermittently. 3-Partial/Moderate Assistance-helper does LESS THAN HALF the effort. [place] lifts, holds or supports trunk or limbs, but provides less than half the effort. 2-Substantial/Maximal Assistance-helper does MORE THAN HALF the effort. [place] lifts or holds trunk or limbs and provides more than half the effort. 4-Udqjxamgs-hhunvt does ALL the effort. Patient does none of the effort to complete the activity. Or, the assistance of 2 or more helpers is required for the patient to complete the activity. If activity was not attempted, code reason: 7-Patient Refused. 9-Not Applicable-not attempted and the patient did not perform the activity before the current illness, exacerbation or injury. 10-Not Attempted due to Environmental Limitations-(lack of equipment, weather restraints, etc.). 88-Not Attempted due to Medical Conditions or Safety Concerns. Roll Left to Right (QC): 6 Sit to Lying (QC): 6 Sit to Stand (QC): 4 Chair/Lyu-es-Lrjon Xfer(QC): 4 Car Transfer (QC): 4 Gait Training Does the Patient Walk?: Yes Distance: 400'x2 Walk 10 feet (QC): 4 Walk 50 ft with 2 Turns(QC): 4 Walk 150 ft (QC): 4 Walking 10ft/uneven surface-QC: 4 Gait Assistive Device: None Wheelchair Training Does the Pt Use a Wheelchair?: No Wheel 50 ft with 2 turns (QC): 9 Wheel 150 ft (QC): 9 Stair Training #of Steps: 4 1 Step (curb) (QC): 3 4 Steps (QC): 3 12 Steps (QC): 88 Balance Picking up an Object (QC): 88 ADL-Treatment Eating (QC): 6 Oral Hygiene (QC): 7 Shower/Bathe Self (QC): 7 Upper Body Dressing (QC): 2 (max A doffing (sling and shirt), max A donning. Pt educated on donning over LUE first, requires max A due to decreased problem solving and strength in UE. ) Lower Body Dressing (QC): 3 (min A during threading task and pulling over hips (due to decreased fingertip sensation and university librarian strength)) On/Off Footwear (QC): 6 Toileting Hygiene (QC): 4 (CGA in stance for bottom hygiene. ) Toilet Transfer (QC): 4 (CGA in stance at toilet.) Assessment/Plan Assessment and Plan Assess & Plan/Chief Complaint Assessment: Severe fall Left hand shattered fracture Left facial hematoma COPD Wheezing Smoker HTN HLP DM OOC Cognitive deficit 05/21 [facility] Brain surgery at 34yo Plan: Pain control BM regimen Nebs Monitor wheezing IRF protocol Fall prevention (1) Facial hematoma (2) Left hand fracture (3) History of brain surgery (4) Cognitive deficits (5) COPD (chronic obstructive pulmonary disease) (6) Wheezing (7) Smoker (8) Diabetes (9) Hypertension (10) Hyperlipemia FAUSTINO GAITAN DO January 01, 2020 10:13
--- NOTE | 2020-01-01 10:35 | NUR ---
Pastoral care visit.
--- NOTE | 2020-01-01 11:08 | Speech Therapy Daily Note ---
Speech Daily Progress Note Subjective Date Seen by Provider: January 01, 2020 Time Seen by Provider: 00:30 Patient was watching television following his OT session. Objective Patient completed a series of the best answer to complete sentences with 80% given moderate verbal cues. Assessment Assessment Current Status: Good Progress Treatment Plan Continue Plan of Care Speech Short Term Goals Short Term Goals Short Term Goals 1) Patient will complete memory tasks as directed with 75% accuracy given minimal cues. 2) Patient will complete sequencing tasks as directed with 75% accuracy given minimal cues. j3) Patient will complete following directional tasks as directed with 75% accuracy given minimal cues. Speech Long-Term Goals Rag Inspector Goals Patient will improve his cognitive-communicative status so that he may require minimal assist and/or cues. Speech-Plan Patient/Family Goals Patient/Family Goals: Patient plans on moving to his new apartment upon hospital discharge. Treatment Plan Speech Therapy Treatment Plan: Continue Plan of Care Treatment Duration: January 16, 2020 Frequency: 5 times per week Estimated Hrs Per Day: .5 hour per day Rehab Potential: Fair Barriers to Learning: Patient's cognitive deficits Pt/Family Agrees to Plan: Yes Safety Risks/Education Teaching Recipient: Patient Teaching Methods: Demonstration, Discussion Response to Teaching: Verbalize Understanding, Return Demonstration Education Topics Provided: Safety within his room and communication of wants/needs Time Speech Therapy Time In: 10:30 Speech Therapy Time Out: 11:00 Total Billed Time: 30 Billed Treatment Time 1KRI[address]HER [address] ST January 01, 2020 11:07
--- NOTE | 2020-01-01 11:16 | NUR ---
RD ASSESSMENT PMHx: COPD; CAD; hypercholesterolemia; HTN; DM PT INTERACTION: Pt was awake and pleasant during nutrition assessment. Pt states current appetite is pretty good. Note avg PO intake of 75% x2meal, per chart review. Pt states following a regular diet at home, and has no issues with chewing/swallowing food. Pt states having no teeth. Pt states no recent issues with nausea, vomiting, constipation, or diarrhea, and that his last BM was 12/31. Note pt currently on bowel regimen of colace BID; senna BID; and miralax BID, per chart review. Pt states unsure of recent wt changes. Note unable to determine recent wt hx, per chart review. Pt states current DM management is "pretty good, at least I try to keep it pretty good." Note unable to determine recent HbA1c, per chart review. ABNORMAL NUTRITION-RELATED LAB VALUES LOW: HIGH: BUN 28; cr 1.52; glu 201 Est. kcal needs: 9070-6275 kcal | 25-30 kcal/kg Est. Pro needs: 110-129 g Pro | 1.2-1.4 g Pro/kg PES STATEMENT: Given current PO intake, no nutrition diagnosis at this time (NO-1.1) INTERVENTION: Continue with current diet order of CHO 60g/m 0snack diet. Offered dietary education for DM management, but pt declined at this time. Will attempt to offer again prior to discharge. Will continue to follow and reassess as pt needs, intake, and status change. MONITOR/EVALUATE: PO Intake; Plan of Care; Hydration Status; Weight Status; Lab Values Mario Abad, MS, RD, LD
--- NOTE | 2020-01-01 12:27 | NUR ---
CM/SS ADMISSION Patient admitted to ARU from [facility] post fall with injury, fracture of phalanx and facial hematoma, left. Patient apparently fell on concrete sidewalk, suspected he tripped while wearing a work boot type shoe. 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 Tobaccoism 2ppd and cigars. [facility] in [place] and the goal is for him to return there when stable. His DIL/POA-HC is Sindhu "Teena Villanueva, she is in the process of coordinating a move to a similar apartment in [place] starting 02/20/20. She will also be moving to [place] very near the apartment complex and will continue to oversee and participate in his daily care. Patient had two children, April was to his son Papo Villanueva (Dink) who was killed 18 years ago in a work related dump truck rollover. He has a daughter listed as Jose Daniel Benoit; however, patient has not had any contact with her for years, her last known whereabouts was EVELIN Wise. PCP: Alka Talavera NP, [facility], PHARMACY: [place] [facility] INSURANCE: Medicare, [employer] DME: Has walkers and canes, does not use either. Patient states he does not have a shower chair, but lives in handicap accessible apartments. Therapy team to make recommendations as patient progresses toward discharge. April does describe that patient loves to walk, especially outside, and that he does not and will not want to use any assistive devices. IN-HOME SERVICES: Patient [place] in-home services through [place] under [employer], 104.5 total hours weekly: 10.5 comprehensive hours, 45.0 day hours, 49 overnight hours. April is able to work for patient and supervise all over caregivers as her way to insure he is getting the best care possible. BARRIERS TO DISCHARGE: Cognition clarity in general, especially for following precautions and ability to manage injured arm in prescribed sling and immobilizer wraps. However, April states that they will not allow patient to be alone at all once home until such time as they are comfortable with him doing so. April and her family will keep him with them any time he does not have paid caregivers to be present. CONTACTS: Sindhu Jules" EILEEN Villanueva, [facility]- [address] [place] [address] Joana Villanueva, Granddaughter, GPOA [address] [phone] Patient was made aware of the weekly patient care conference, discussed with April by phone and she understands the purpose and process of same. She verbalized she would appreciate contact and updates from team members since patient does have known cognitive and memory impairment.
--- NOTE | 2020-01-01 12:52 | Diagnostic Imaging Report ---
INDICATION: Fall, left forearm injury. TIME OF EXAM: 11:21 AM 2 views of the left forearm were obtained. Alignment at the wrist and elbow appears normal. Radius and ulna appear to be intact. A fracture of the triquetrum as seen on the lateral view. Fractures of the metacarpals and phalanges, already described on prior reports, are again noted. IMPRESSION: No evidence of radius or ulnar fracture. Dictated by: Dictated on workstation # [id number]
--- NOTE | 2020-01-01 12:53 | Diagnostic Imaging Report ---
INDICATION: Left hand and wrist injury. TIME OF EXAM: 11:20 AM FINDINGS: Multiple views of the left wrist were obtained. There is diffuse demineralization. Tiny well-corticated osseous density adjacent to the radial styloid is noted, likely old fracture. No acute distal radius or ulnar fracture is seen. There is also small osseous density along the dorsum of the carpus on the lateral view. This may represent a small fracture fragment, perhaps from a triquetral fracture however age is indeterminate. There is a fracture involving the base of the 5th metacarpal, nondisplaced. There is also fracture of the distal 4th metacarpal. There appears to be a comminuted fracture involving the proximal phalanx of the 5th finger. IMPRESSION: Acute appearing fractures of the 4th and 5th metacarpal as well as the proximal phalanx of the 5th finger. It is age indeterminate fracture involving the triquetrum. Dictated by: Dictated on workstation # [id number]
--- NOTE | 2020-01-01 12:54 | Diagnostic Imaging Report ---
INDICATION: Left hand fracture. TIME OF EXAM: 11:17 AM A fracture at the base of the 5th metacarpal as well as the distal 4th metacarpal are again noted. There is comminute fractures of the proximal aspect proximal phalanx, 5th finger. Remaining phalanges appear to be intact. Osseous density along the dorsum of the carpus on the lateral view is again noted, suspicious for triquetral fracture. Tiny metallic density noted in the volar soft tissues at the level of the proximal 3rd metacarpal, consistent with tiny foreign body, age-indeterminate. IMPRESSION: Hand and wrist fractures, as described. Dictated by: Dictated on workstation # [id number]
[2020-01-01] MEDS: ENOXAPARIN 40 MG/0.4 ML (LOVENOX) SYR SC SCH (13:39)
--- NOTE | 2020-01-01 13:54 | Physical Therapy Daily Note ---
PT Daily Note-Current Subjective Patient in bed pre tx, agrees to PT, has no complaints of pain. Appearance Patient in bed post tx with nurse call, phone, tray, bed alarm on. Mental Status Patient Orientation: Person, Place, Situation left arm sling Transfers SCALE: Activities may be completed with or without assistive devices. 2-Qqxjhobpzs-bmapeal completes the activity by him/herself with no assistance from a helper. 5-Set-up or Clean-up Assistance-helper sets up or cleans up; patient completes activity. [place] assists only prior to or following the activity. 4-Supervision or Touching Assistance-helper provides verbal cues and/or touching/steadying and/or contact guard assistance as patient completes activity. Assistance may be provided throughout the activity or intermittently. 3-Partial/Moderate Assistance-helper does LESS THAN HALF the effort. [place] lifts, holds or supports trunk or limbs, but provides less than half the effort. 2-Substantial/Maximal Assistance-helper does MORE THAN HALF the effort. [place] lifts or holds trunk or limbs and provides more than half the effort. 5-[place]-dalldl does ALL the effort. Patient does none of the effort to complete the activity. Or, the assistance of 2 or more helpers is required for the patient to complete the activity. If activity was not attempted, code reason: 7-Patient Refused. 9-Not Applicable-not attempted and the patient did not perform the activity before the current illness, exacerbation or injury. 10-Not Attempted due to Environmental Limitations-(lack of equipment, weather restraints, etc.). 88-Not Attempted due to Medical Conditions or Safety Concerns. Roll Left & Right (QC): 6 Sit to Lying (QC): 6 Lying to Sitting/Side of Bed(Q: 6 Sit to Stand (QC): 4 Chair/Wwn-cc-Qelas Xfer(QC): 4 Weight Bearing sling left arm Gait Training Distance: 400'x2 Walk 10 feet (QC): 4 Walk 50 ft with 2 Turns(QC): 4 Walk 150 ft (QC): 4 Gait Persons Needed: 1 Gait Assistive Device: None SBA, no unsteadiness or LOB, fair pace, poor foot clearance though Treatments bed mobility and transfers, ambulation Assessment Current Status: Fair Progress improving balance and endurance PT Short Term Goals Short Term Goals Time Frame: January 07, 2020 Roll Left & Right: 6 Sit to lyin Lying to sitting on side of be: 6 Sit to stand: 4 Chair/mpb-zj-vqgjb transfer: 4 Walk 10 feet: 4 Walk 50 feet with two turns: 4 Walk 150 feet: 4 PT Penitentiary Goals V Belt Curer Goals PT Penitentiary Goals Time Frame: Jan 21, 2020 Roll Left & Right (QC): 6 Sit to Lying (QC): 6 Lying-Sitting on Side/Bed(QC): 6 Sit to Stand (QC): 6 Chair/Geo-vm-Cfaiv Xfer(QC): 5 Toilet Transfer (QC): 5 Car Transfer (QC): 5 Does the Patient Walk: Yes Walk 10 feet (QC): 5 Walk 50ft with 2 Turns (QC): 5 Walk 150 ft (QC): 5 Walking 10ft on Uneven Surface: 5 1 Step (curb) (QC): 4 4 Steps (QC): 4 12 Steps (QC): 4 Picking up an Object (QC): 5 Wheel 50 feet with 2 turns (QC: 9 Wheel 150 feet: 9 PT Plan Problem List Problem List: Activity Tolerance, Functional Strength, Safety, Balance, Gait, Transfer Treatment/Plan Treatment Plan: Continue Plan of Care Treatment Plan: Education, Functional Activity [place], Functional Strength, Group Therapy, Gait, Safety, Therapeutic Exercise, Transfers Treatment Duration: Jan 21, 2020 Frequency: At least 5 of 7 days/Wk (IRF) Estimated Hrs Per Day: 1.5 hours per day Patient and/or Family Agrees t: Yes Safety Risks/Education Patient Education: Gait Training, Transfer Techniques, Correct Positioning, Safety Issues Teaching Recipient: Patient Teaching Methods: Demonstration, Discussion Response to Teaching: Reinforcement Needed Time/GCodes Time In: 1330 Time Out: 1350 Total Billed Treatment Time: 20 Total Billed Treatment 1 visit GT 20' MAYRA MCCRACKEN PT January 01, 2020 13:54
--- NOTE | 2020-01-01 14:56 | NUR ---
SIMON SANTOS HERE TO SEE PATIENT. REVIEWED XRAYS. DRESSING CHANGE DONE BY SIMON SANTOS. ORDERS TO CHANGE LEFT HAND DRESSING EVERY 2 DAYS. CLEANSE WITH NS. COVER WITH ADAPTIC AND THE GAUZE. SECURE TO SPLINT WITH FARRUKH WRAP. SLING FOR COMFORT. Addendum: 01/01/20 at 1508 by TRINI CHERRY RN THEN GAUZE*
[2020-01-01] MEDS: guaiFENesin/CODEINE (ROBITUSSIN AC) 10ML UDC PO PRN (17:06)
[2020-01-01 17:39] VITALS: BP 135/66
--- NOTE | 2020-01-01 20:39 | Individualized Plan of Care ---
Individualized Plan of Care Rehab Nursing IPOC Order Admission Date December 31, 2019 at 11:50 Current Orders Orders Admission Order(Inpt,Obs,Sdc) (12/31/19 11:46) Vital Signs: Per Unit Policy ( 08,16,00 (12/31/19 11:46) Ore Charger-Inpt Rehab Con (12/31/19 11:46) Rehab Nursing Orders-Ipoc (12/31/19 11:46) Physical Therapy Rehab Orders (12/31/19 11:46) Occupational Therapy Rehab Ord (12/31/19 11:46) Speech Therapy Rehab Orders (12/31/19 11:46) Cbc With Automated Diff (01/01/20 06:00) Comprehensive Metabolic Panel (01/01/20 06:00) Precautions (Aru) (12/31/19 11:46) Rehab-Intensity Of Therapy (12/31/19 11:46) Initiate Admission Nursing Pro .admission (12/31/19 11:46) Alprazolam Tablet (Xanax Tablet) (12/31/19 12:00) Calcium Carbonate Chew Tablet (Antacid C (12/31/19 12:00) Diphenhydramine Tablet (Benadryl Tablet) (12/31/19 12:00) Docusate Sodium Capsule (Colace Capsule) (12/31/19 21:00) Docusate Sodium Capsule (Colace Capsule) (12/31/19 12:00) Bisacodyl Suppository (Dulcolax Supposit (12/31/19 12:00) Lactulose Oral Solution (Enulose Oral So (12/31/19 12:00) Na Phos/Na Biphos Enema (Fleet Enema Cl (12/31/19 12:00) Guaifenesin/Codeine Syrup (Robitussin Ac (12/31/19 12:00) Loperamide Tablet (Imodium Tablet) (12/31/19 12:00) Enoxaparin Injection (Lovenox Injection) (12/31/19 14:00) Melatonin Tablet (Melatonin Tablet) (12/31/19 12:00) Polyethylene Glycol Powder Pkt (Miralax (12/31/19 21:00) Ondansetron Oral Dissolve Tab (Zofran (12/31/19 12:00) Senna S Tablet (Senokot S Tablet) (12/31/19 21:00) Oxycodone/Acet 10/325mg Tablet (Percocet (12/31/19 12:00) Albuterol/Ipra Inhalation Soln (Duoneb I (12/31/19 14:00) Svn Small Volume Nebulizer (12/31/19 11:46) Admission Arrival Bed Request (12/31/19 11:57) General/Regular (12/31/19 Lunch) Cho 60g/M 0snack (16-2000 Curtis) (12/31/19 Lunch) Code/Resuscitation (12/31/19 13:18) Patient Visit (12/31/19 ) Speech Sound Lang Comp (12/31/19 ) Edu Tobacco/Smoking Cessation .prn (12/31/19 14:16) Ambulate 08,12,20 (12/31/19 14:16) Sequential Compression Device Q4H (12/31/19 14:16) Dvt/Vte Risk - Notifiy Physici Q4H (12/31/19 14:16) Request Ot Evaluate & Treat (12/31/19 14:16) Follow-Up Appointment (12/31/19 17:19) Nursing Communication (Order) (12/31/19 17:19) Dressing Order (Intervention) DAILY (01/03/20 09:00) Amlodipine Tablet (Norvasc Tablet) (01/01/20 09:00) Aspirin Enteric Coated Tablet (Ecotrin T (01/01/20 09:00) Hydrocodone/Apap 7.5/325 Tab (Lortab 7. (12/31/19 18:15) Albuterol/Ipra Inhalation Soln (Duoneb I (12/31/19 21:00) Metformin Xr Tablet (Glucophage Xr Table (01/01/20 08:00) Montelukast Tablet (Singulair Tablet) (01/01/20 09:00) Simvastatin Tablet (Zocor Tablet) (12/31/19 21:00) (Nf) Fluticasone/Salmeterol (Advair 250- (12/31/19 21:00) Atorvastatin Tablet (Lipitor Tablet) (12/31/19 21:00) Fluticasone/Salmeterol 115/21 (Advair Hf (12/31/19 20:00) Patient May Use Own Med,Single (Patient (12/31/19 18:45) Patient's Own Med(Rx Use Only) (Patient' (12/31/19 21:00) Transfer - Bed/Room/Location (01/01/20 08:15) Accucheck Bid DBID (01/01/20 10:50) Consult Physician (01/01/20 10:50) Forearm, Left, 2 Views (01/01/20 10:50) Hand, Left, 2 Views (01/01/20 10:50) Wrist, Left, 2 Views (01/01/20 10:50) Patient Visit (01/01/20 ) Treat. Speech/Lang/Voice (01/01/20 ) Patient Visit (01/01/20 ) Gait Training, Ea 15 Min (01/01/20 ) Exercise Therap, Ea 15 Min (01/01/20 ) Dressing Order (Intervention) Q48H (01/01/20 15:04) Patient Visit (01/02/20 ) Treat. Speech/Lang/Voice (01/02/20 ) Patient Visit (01/02/20 ) Exercise Therap, Ea 15 Min (01/02/20 ) Gait Training, Ea 15 Min (01/02/20 ) Rehab Nursing Orders: Ongoing Assess. of Cognitive Status, Ongoing Assess. of Function Status, Bowel Management, Disease Management & Educaiton, DVT Prophylaxis, Fluid/Electrolyte/Nutrition Mgmt, Infection Prevention, Management of Risks & Complications, Management of Skin Intergrity, Nutrition Management, Pain Management, Patient/Family Support, Safety Management Intensity of Therapy to be met Patient to be seen: Min.3h per day/5 of 7d PT IPOC Problem List: Activity Tolerance, Functional Strength, Safety, Balance, Gait, Transfer Treatment Plan: Continue Plan of Care Education, Functional Activity Latosha, Functional Strength, Group Therapy, Gait, Safety, Therapeutic Exercise, Transfers Treatment Duration: Jan 21, 2020 Frequency: At least 5 of 7 days/Wk (IRF) Estimated Hrs Per Day: 1.5 hours per day OT IPOC Problems: Decreased Activ Tolerance, Decreased UE Strength, Impaired Cognition, Impaired Coordination, Impaired Funct Balance, Impaired I ADL's, Impaired Self- Care Skills OT Treatment, Training and Edu: Yes Plan of Care: ADL Retraining, Functional Mobility, Group Exercise/Act as Ind, Orthotic Fitting/Training, UE Funct Exercise/Act Treatment Duration: January 14, 2020 Frequency: At least 5 of 7 days/Wk (IRF) Estimated Hrs Per Day: 1.[address] IPOC Speech Therapy Treatment Plan: Continue Plan of Care Treatment Duration: January 16, 2020 Frequency: 5 times per week Estimated Hrs Per Day: .5 hour per day Ore Charger/Case Mgmt Ore Charger/Case Managemen: Discharge Planning Dietitian/Screw Machine Adjuster Automatic Dietitian/Screw Machine Adjuster Automatic to monitor nutritional status and make changes and/or recommendations as needed and work with speech pathology on dietary upgrades as the occur. Physician IPOC Medical Issues being managed closely and that require the 24 hour availability of a physician: Recent severe fall with traumatic injuries and high risk for additional falls will require close monitoring along with COPD management Medical Issues: Bowel/Bladder Function, DVT Prophylaxis, Falls Precautions, Fluid/Electrolyte/Nutrition Balance, Infection Protection, Pain Management, Wound Care Brief Synthesis of Preadmission Screen, Post-Admission Evaluation, and Therapy Evaluations: PT OT ST will focus on regaining ADL's in order to return home to live independently with family involvement along with stamina building with therapies Medical Prognosis: Good Anticipated Length of Stay: 7 days FAUSTINO GAITAN DO January 01, 2020 20:38
--- NOTE | 2020-01-02 00:15 | CONSULTATION REPORT ---
DATE OF SERVICE: INPATIENT CONSULT HISTORY OF PRESENT ILLNESS: The patient is a 74-year-old male was admitted to the inpatient rehabilitation unit per Dr. Cheryl Lafleur, after a fall. He was admitted for a short period of time at [facility] for observation as well. He fell sustaining injury to his face as well as his left hand. Due to fractures throughout the left hand, orthopedic was then consulted. He was initially evaluated by Dr. Camargo in [place] and was placed into an ulnar gutter splint. The patient does have a past history of hypertension, non-insulin dependent diabetes, COPD, coronary artery disease, hypercholesterolemia, stroke, kidney stones and renal failure. PAST SURGICAL HISTORY: Include a brain mass exposing 40 years ago, adenoidectomy, orthopedic surgery and cataract surgery. SOCIAL HISTORY: He does live independently. He denies alcohol or illicit drug use, but does smoke 2 packs of cigarettes daily and does occasionally smoke cigars as well. His BMI is 26.5 and his local primary care provider is MARY JO Khan CURRENT MEDICATIONS: Include amlodipine, aspirin, fluticasone, [place], ipratropium, metformin, montelukast, and simvastatin. IMAGING: I reviewed x-rays three views of the left hand from [facility] dated, 12/31/2019 showed a nondisplaced, but mildly comminuted fracture of the fifth metacarpal base. This does not appear to extend intraarticularly and is primarily transverse in nature. There is a questionable fracture at the fifth metacarpal neck as well, which appears nondisplaced and nonangulated. He does have a fracture of the long finger proximal phalanx . Again, extraarticular and appears fairly well aligned in all 3 views and then finally a metacarpal neck fracture of the fourth metacarpal was otherwise noted. This appeared transverse also and well aligned. No other bony abnormalities were noted radiographically. In addition, he did have 3 views of the left wrist and no acute changes were noted radiographically. Left upper extremity exam removed surrounding ecchymosis and abrasions throughout the left upper extremity. He did have tube gauze dressings in place over the small and ring fingers. These were not removed due to the presence of eschar. A small abrasion was noted at the dorsum of the ulnar metacarpal region as well, this was nonerythematous and demonstrated no drainage. Otherwise, he did have tenderness to palpation throughout the fifth metacarpal and the base of the fifth finger. He was nontender over the base and mid shaft of the fourth metacarpal, but was tender distally. Nontender throughout the remaining phalanges and nontender throughout the first through third metacarpal. He was nontender throughout the distal radius, distal ulna and carpus. No gross deformity was noted involving the small and ring fingers. IMPRESSION: Left hand closed nondisplaced fractures of the small finger metacarpal, small finger proximal phalanx and the ring finger metacarpal neck. PLAN: The patient was placed back into his ulnar gutter splint. I did discuss dressing changes with his nurse today and recommended dressing changes every other day. Ice treatments as needed. I would like to recheck him on an outpatient basis as soon as he is released from the rehab unit and we discussed conversion into a removable splint at that point, so that he can begin to work on gentle range of motion exercises. The option of a short arm cast was also discussed. Dr. Vila is informed of the consult and the exam findings. Again, we will plan to recheck him on an outpatient basis. Thank you for the consult. Job ID: [id number] DocumentID: [id number] Dictated Date: 01/01/2020 15:29:55 Intelligence Chief Date: 01/01/2020 20:59:21 Dictated By: MARY JO MATA
[2020-01-02] MEDS: guaiFENesin/CODEINE (ROBITUSSIN AC) 10ML UDC PO PRN ×2 (02:09→18:30)
[2020-01-02] MEDS: RT-ALBUTEROL/IPRATROPIUM 3 ML (DUONEB) VIAL INH SCH ×6 (04:58→21:35)
[2020-01-02 05:06] VITALS: BP 133/72
[2020-01-02] MEDS: ADVAIR DISKUS 250/50 IH SCH (07:10)
[2020-01-02] MEDS: SENNA W/DOCUSATE (SENOKOT S) TABLET PO SCH ×2 (08:13→21:59)
[2020-01-02] MEDS: amLODIPine 10 MG (NORVASC) TAB PO SCH (08:13)
[2020-01-02] MEDS: DOCUSATE SODIUM 100 MG (COLACE) CAP PO SCH ×2 (08:13→22:00)
[2020-01-02] MEDS: MONTELUKAST 10 MG (SINGULAIR) TAB PO SCH (08:13)
[2020-01-02] MEDS: metFORMIN XR 500 MG (GLUCOPHAGE XR) TAB PO SCH (08:13)
[2020-01-02] MEDS: polyethylene glycoL POWDER 17 GM (MIRALAX) PACK PO SCH ×2 (08:14→22:00)
[2020-01-02] MEDS: ASPIRIN E.C. 81 MG (ECOTRIN) TAB PO SCH (08:14)
--- NOTE | 2020-01-02 09:35 | PM&R Progress Note ---
Subjective HPI/CC On Admission Date Seen by Provider: January 02, 2020 Time Seen by Provider: 09:45 Subjective/Events-last exam Pt doing very well today Participating in all therapy Cognitive deficit is chronic but he seems to be working well with speech therapy Bowels are moving on a regular basis Pain is well controlled Dr. Vila saw him, and assessed his left hand and told him it is shattered Unsure what the follow-up on his hand will be Overall doing very well otherwise Creatinine is baseline at 1.5 Lung remain clear after an exacerbation of COPD from recent smoking cessation since he has been hospitalized Conferred with RN Reviewed therapy notes Checked meds and labs Review of Systems General: Fatigue Pulmonary: Dyspnea Musculoskeletal: arm pain Neurological: Weakness Objective Exam Vital Signs Vital Signs Date Time Temp Pulse Resp B/P (MAP) Pulse Ox O2 Delivery O2 Flow Rate FiO2 01/02/20 18:50 85 Room Air 01/02/20 17:18 36.8 76 20 144/67 (92) Capillary Refill : Less Than 3 SecondsLess Than 3 Seconds General Appearance: No Apparent Distress, WD/WN, Chronically ill HEENT: Pharynx Normal, Other (left eyelid edematous with bruising) Neck: Full Range of Motion, Normal Inspection, Non Tender, Supple, Carotid Bruit Respiratory: Chest Non Tender, No Accessory Muscle Use, No Respiratory Distress, Decreased Breath Sounds, Rales, Wheezing Cardiovascular: Regular Rate, Rhythm, No Edema, No Gallop, No JVD, No Murmur, Normal Peripheral Pulses Gastrointestinal: Normal Bowel Sounds, No Organomegaly, No Pulsatile Mass, Non Tender, Soft Back: Normal Inspection, No CVA Tenderness, No Vertebral Tenderness Extremity: Normal Capillary Refill, Normal Inspection, Normal Range of Motion (except left arm in sling), Non Tender, No Calf Tenderness, No Pedal Edema Neurologic/Psychiatric: Alert, Oriented x3, No Motor/Sensory Deficits (pre- existing weakness left extremities from brain surgery hx), Normal Mood/Affect, case coordinator II-XII Norm as 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 FIM Transfers Therapy Code Descriptions/Definitions Functional Turner Measure: 0=Not Assessed/NA 4=Minimal Assistance 1=Total Assistance 5=Supervision or Setup 2=Maximal Assistance 6=Modified Turner 3=Moderate Assistance 7=Complete IndependenceSCALE: Activities may be completed with or without assistive devices. 0-Avrjxuznea-ktnkoch completes the activity by him/herself with no assistance from a helper. 5-Set-up or Clean-up Assistance-helper sets up or cleans up; patient completes activity. [place] assists only prior to or following the activity. 4-Supervision or Touching Assistance-helper provides verbal cues and/or touching/steadying and/or contact guard assistance as patient completes activity. Assistance may be provided throughout the activity or intermittently. 3-Partial/Moderate Assistance-helper does LESS THAN HALF the effort. [place] lifts, holds or supports trunk or limbs, but provides less than half the effort. 2-Substantial/Maximal Assistance-helper does MORE THAN HALF the effort. [place] lifts or holds trunk or limbs and provides more than half the effort. 1-Kmaokqxme-rimvho does ALL the effort. Patient does none of the effort to complete the activity. Or, the assistance of 2 or more helpers is required for the patient to complete the activity. If activity was not attempted, code reason: 7-Patient Refused. 9-Not Applicable-not attempted and the patient did not perform the activity before the current illness, exacerbation or injury. 10-Not Attempted due to Environmental Limitations-(lack of equipment, weather restraints, etc.). 88-Not Attempted due to Medical Conditions or Safety Concerns. Roll Left to Right (QC): 6 Sit to Lying (QC): 6 Sit to Stand (QC): 4 Chair/Dcq-uk-Ivgeg Xfer(QC): 4 Car Transfer (QC): 4 Gait Training Does the Patient Walk?: Yes Distance: 400'x2 Walk 10 feet (QC): 4 Walk 50 ft with 2 Turns(QC): 4 Walk 150 ft (QC): 4 Walking 10ft/uneven surface-QC: 4 Gait Persons Needed: 1 Gait Assistive Device: None Wheelchair Training Does the Pt Use a Wheelchair?: No Wheel 50 ft with 2 turns (QC): 9 Wheel 150 ft (QC): 9 Stair Training #of Steps: 4 1 Step (curb) (QC): 3 4 Steps (QC): 3 12 Steps (QC): 88 Balance Picking up an Object (QC): 88 ADL-Treatment Eating (QC): 6 Oral Hygiene (QC): 7 Shower/Bathe Self (QC): 7 Upper Body Dressing (QC): 2 (max A doffing (sling and shirt), max A donning. Pt educated on donning over LUE first, requires max A due to decreased problem solving and strength in UE. ) Lower Body Dressing (QC): 3 (min A during threading task and pulling over hips (due to decreased fingertip sensation and refrigeration person strength)) On/Off Footwear (QC): 6 Toileting Hygiene (QC): 4 (CGA in stance for bottom hygiene. ) Toilet Transfer (QC): 4 (CGA in stance at toilet.) Assessment/Plan Assessment and Plan Assess & Plan/Chief Complaint Assessment: Severe fall Left hand shattered fracture Left facial hematoma COPD Wheezing Smoker HTN HLP DM OOC Cognitive deficit 05/21 [facility] Brain surgery at 34yo Plan: Pain control BM regimen Nebs Monitor wheezing IRF protocol Fall prevention (1) Facial hematoma (2) Left hand fracture (3) History of brain surgery (4) Cognitive deficits (5) COPD (chronic obstructive pulmonary disease) (6) Wheezing (7) Smoker (8) Diabetes (9) Hypertension (10) Hyperlipemia FAUSTINO GAITAN DO January 02, 2020 09:35
--- NOTE | 2020-01-02 09:53 | Physical Therapy Daily Note ---
PT Daily Note-Current Subjective Patient in recliner pre tx, agrees to PT, has no complaints of pain. Appearance Patient in bed post tx with nurse call, phone, tray, all needs met, bed alarm on. Mental Status Patient Orientation: Person, Confused, Mumbles left arm sling Transfers SCALE: Activities may be completed with or without assistive devices. 2-Euqagyzkhd-rakcswb completes the activity by him/herself with no assistance from a helper. 5-Set-up or Clean-up Assistance-helper sets up or cleans up; patient completes activity. [place] assists only prior to or following the activity. 4-Supervision or Touching Assistance-helper provides verbal cues and/or touching/steadying and/or contact guard assistance as patient completes activity. Assistance may be provided throughout the activity or intermittently. 3-Partial/Moderate Assistance-helper does LESS THAN HALF the effort. [place] lifts, holds or supports trunk or limbs, but provides less than half the effort. 2-Substantial/Maximal Assistance-helper does MORE THAN HALF the effort. [place] lifts or holds trunk or limbs and provides more than half the effort. 1-Pvvxqfdxg-xlopcl does ALL the effort. Patient does none of the effort to complete the activity. Or, the assistance of 2 or more helpers is required for the patient to complete the activity. If activity was not attempted, code reason: 7-Patient Refused. 9-Not Applicable-not attempted and the patient did not perform the activity before the current illness, exacerbation or injury. 10-Not Attempted due to Environmental Limitations-(lack of equipment, weather restraints, etc.). 88-Not Attempted due to Medical Conditions or Safety Concerns. Roll Left & Right (QC): 6 Sit to Lying (QC): 6 Lying to Sitting/Side of Bed(Q: 6 Sit to Stand (QC): 6 Chair/Lih-kd-Zdazl Xfer(QC): 4 Weight Bearing sling left arm Gait Training Distance: 400'x2 Walk 10 feet (QC): 4 Walk 50 ft with 2 Turns(QC): 4 Walk 150 ft (QC): 4 Gait Persons Needed: 1 Gait Assistive Device: None Slow but steady ambulation, no LOB, cues for direction. Exercises Supine Ex: Ankle pumps, Heel Slides, Straight leg raise, Hip abd/add (hooklying with RTB and ball) LAQ alternating for 5 min with 2# ankle weights NuStep Minutes: 15 NuStep Workload: 5 Treatments bed mobility and transfers, ambulation, functional strengthening Assessment Current Status: Fair Progress slightly SOB after ambulating 400' but recovers quickly with a short rest PT Short Term Goals Short Term Goals Time Frame: January 07, 2020 Roll Left & Right: 6 Sit to lyin Lying to sitting on side of be: 6 Sit to stand: 4 Chair/jkp-kk-mepxu transfer: 4 Walk 10 feet: 4 Walk 50 feet with two turns: 4 Walk 150 feet: 4 PT Motor Vehicle Assembly Supervisor Goals Motor Vehicle Assembly Supervisor Goals PT Motor Vehicle Assembly Supervisor Goals Time Frame: Jan 21, 2020 Roll Left & Right (QC): 6 Sit to Lying (QC): 6 Lying-Sitting on Side/Bed(QC): 6 Sit to Stand (QC): 6 Chair/Ail-xr-Zcvcy Xfer(QC): 5 Toilet Transfer (QC): 5 Car Transfer (QC): 5 Does the Patient Walk: Yes Walk 10 feet (QC): 5 Walk 50ft with 2 Turns (QC): 5 Walk 150 ft (QC): 5 Walking 10ft on Uneven Surface: 5 1 Step (curb) (QC): 4 4 Steps (QC): 4 12 Steps (QC): 4 Picking up an Object (QC): 5 Wheel 50 feet with 2 turns (QC: 9 Wheel 150 feet: 9 PT Plan Problem List Problem List: Activity Tolerance, Functional Strength, Safety, Balance, Gait, Transfer Treatment/Plan Treatment Plan: Continue Plan of Care Treatment Plan: Education, Functional Activity Latosha, Functional Strength, Group Therapy, Gait, Safety, Therapeutic Exercise, Transfers Treatment Duration: Jan 21, 2020 Frequency: At least 5 of 7 days/Wk (IRF) Estimated Hrs Per Day: 1.5 hours per day Patient and/or Family Agrees t: Yes Safety Risks/Education Patient Education: Gait Training, Transfer Techniques, Correct Positioning, Safety Issues Teaching Recipient: Patient Teaching Methods: Demonstration, Discussion Response to Teaching: Reinforcement Needed Time/GCodes Time In: 0800 Time Out: 0900 Total Billed Treatment Time: 60 Total Billed Treatment 1 visit GT 30' EX 30' MAYRA MCCRACKEN PT January 02, 2020 09:53
--- NOTE | 2020-01-02 10:38 | Occupational Ther Daily Note ---
OT Current Status-Daily Note Subjective Pt in bed, agrees to therapy. ADL-Treatment Pt supine to sit with increased time and effort. Sponge bath completed seated EOB. Pt doffed shirt with assist to ticket puller head. Therapy Code Descriptions/Definitions Functional [place] Measure: 0=Not Assessed/NA 4=Minimal Assistance 1=Total Assistance 5=Supervision or Setup 2=Maximal Assistance 6=Modified [place] 3=Moderate Assistance 7=Complete IndependenceSCALE: Activities may be completed with or without assistive devices. 8-Oitywtnfjp-usxwdjt completes the activity by him/herself with no assistance from a helper. 5-Set-up or Clean-up Assistance-helper sets up or cleans up; patient completes activity. [place] assists only prior to or following the activity. 4-Supervision or Touching Assistance-helper provides verbal cues and/or touching/steadying and/or contact guard assistance as patient completes activity. Assistance may be provided throughout the activity or intermittently. 3-Partial/Moderate Assistance-helper does LESS THAN HALF the effort. [place] lifts, holds or supports trunk or limbs, but provides less than half the effort. 2-Substantial/Maximal Assistance-helper does MORE THAN HALF the effort. [place] lifts or holds trunk or limbs and provides more than half the effort. 2-Blchsmpdb-bdxrid does ALL the effort. Patient does none of the effort to complete the activity. Or, the assistance of 2 or more helpers is required for the patient to complete the activity. If activity was not attempted, code reason: 7-Patient Refused. 9-Not Applicable-not attempted and the patient did not perform the activity before the current illness, exacerbation or injury. 10-Not Attempted due to Environmental Limitations-(lack of equipment, weather restraints, etc.). 88-Not Attempted due to Medical Conditions or Safety Concerns. Oral Hygiene (QC): 7 (Pt declined to complete) Shower/Bathe Self (QC): 3 (Sponge bath completed seated EOB. Pt able to wash upper body, but requires assist for lower legs/feet and CGA for balance while washing buttocks and douglas area.) Upper Body Dressing (QC): 2 (Max assist to doff shirt. Education provided regarding UE dressing technique. Pt has difficulty following recommendations and requires max assist to don shirt. Decreased problem solving. Assist to manage sling on left UE) Lower Body Dressing (QC): 3 (Pt doffed pants with min assist for balance. Able to thread one leg into undewear and pants, but assist for other LE. Stood with CGA. Pt able to pull pants up over right hip, but assist with pant hike on left. ) On/Off Footwear: 2 (Pt requires assist to doff/don socks. Pt dons shoes with elastic shoelaces with mod assist and cues for technique.) Pt requires cues for safety and task completion during ADL tasks. Stood at sink to comb hair with SBA for balance. Other Treatment Pt ambulated to therapy gym with CGA. Pt completed fine motor task with right UE with 2# weight in place to increase strength, activity tolerance, and coordination. Occasional rest breaks taken. Pt completed standing perdomo bag toss with right UE to promote increased standing balance and activity tolerance. Pt completed task with CGA for balance and cues for safety. One seated rest break taken during task. Pt returned to room, completed sit to supine without assist. Pt resting in bed with needs met after session. Education OT Patient Education: Safety issues Teaching Recipient: Patient Teaching Methods: Discussion Response to Teaching: Reinforcement Needed OT Short Term Goals Short Term Goals Time Frame: January 07, 2020 Upper body dressin Lower body dressin OT Senior Living Goals Senior Living Goals Time Frame: January 14, 2020 Eating (QC): 6 Oral Hygiene (QC): 6 Toileting Hygiene (QC): 6 Shower/Bathe Self (QC): 4 Upper Body Dressing (QC): 6 Lower Body Dressing (QC): 6 On/Off Footwear (QC): 6 1=Demonstrate adherence to instructed precautions during ADL tasks. 2=Patient will verbalize/demonstrate understanding of assistive devices/modifications for ADL. 3=Patient will improve strength/tolerance for activity to enable patient to perform ADL's. OT Education/Plan Discharge Recommendations Plan/Recommendations: Continue POC Treatment Plan/Plan of Care Patient would benefit from OT for education, treatment and training to promote independence in ADL's, mobility, safety and/or upper extremity function for ADL's. Plan of Care: ADL Retraining, Functional Mobility, Group Exercise/Act as Ind, Orthotic Fitting/Training, UE Funct Exercise/Act Treatment Duration: January 14, 2020 Frequency: At least 5 of 7 days/Wk (IRF) Estimated Hrs Per Day: 1.5 hours per day Agreement: Yes Rehab Potential: Fair Time/GCodes Start Time: 09:15 Stop Time: 10:30 Total Time Billed (hr/min): 75 Billed Treatment Time 1 visit, ADLx3(50minutes), EX(15minutes), FA(10minutes) ROSALVA PARISH OT January 02, 2020 10:38
--- NOTE | 2020-01-02 11:31 | Speech Therapy Daily Note ---
Speech Daily Progress Note Subjective Date Seen by Provider: January 02, 2020 Time Seen by Provider: 00:30 Patient was resting in his bed following OT and PT sessions. Patient participated well with therapy. Objective Patient completed "what's wrong with this picture?" with 80% given moderate verbal and visual cues. Assessment Assessment Current Status: Good Progress Treatment Plan Continue Plan of Care Speech Short Term Goals Short Term Goals Short Term Goals 1) Patient will complete memory tasks as directed with 75% accuracy given minimal cues. 2) Patient will complete sequencing tasks as directed with 75% accuracy given minimal cues. j3) Patient will complete following directional tasks as directed with 75% accuracy given minimal cues. Speech Long-Term Goals Vertical Contour Band Saw Operator Goals Patient will improve his cognitive-communicative status so that he may require minimal assist and/or cues. Speech-Plan Patient/Family Goals Patient/Family Goals: Patient plans on returning to his new apartment upon hospital discharge. Treatment Plan Speech Therapy Treatment Plan: Continue Plan of Care Treatment Duration: January 16, 2020 Frequency: 5 times per week Estimated Hrs Per Day: .5 hour per day Rehab Potential: Fair Barriers to Learning: Patient's medical status, cognitive deficits Pt/Family Agrees to Plan: Yes Safety Risks/Education Teaching Recipient: Patient Teaching Methods: Demonstration, Discussion Response to Teaching: Verbalize Understanding, Return Demonstration Education Topics Provided: Continued safety within his room and communication of wants/needs. Time Speech Therapy Time In: 10:30 Speech Therapy Time Out: 11:00 Total Billed Time: 30 Billed Treatment Time 1K[address] January 02, 2020 11:31
--- NOTE | 2020-01-02 13:18 | Physical Therapy Daily Note ---
PT Daily Note-Current Subjective Patient in bed pre tx, agrees to PT, has no complaints of pain but appears to have significant knee pain from arthritis bilaterally. Appearance Patient BTB post tx with nurse call, phone, tray, all needs met. Bed alarm on. Mental Status Patient Orientation: Person, Confused, Mumbles left arm sling Transfers SCALE: Activities may be completed with or without assistive devices. 8-Hdeuwygqhq-cnporkr completes the activity by him/herself with no assistance from a helper. 5-Set-up or Clean-up Assistance-helper sets up or cleans up; patient completes activity. [place] assists only prior to or following the activity. 4-Supervision or Touching Assistance-helper provides verbal cues and/or touching/steadying and/or contact guard assistance as patient completes activity. Assistance may be provided throughout the activity or intermittently. 3-Partial/Moderate Assistance-helper does LESS THAN HALF the effort. [place] lifts, holds or supports trunk or limbs, but provides less than half the effort. 2-Substantial/Maximal Assistance-helper does MORE THAN HALF the effort. [place] lifts or holds trunk or limbs and provides more than half the effort. 0-Yqjawzqwd-utzlqc does ALL the effort. Patient does none of the effort to complete the activity. Or, the assistance of 2 or more helpers is required for the patient to complete the activity. If activity was not attempted, code reason: 7-Patient Refused. 9-Not Applicable-not attempted and the patient did not perform the activity before the current illness, exacerbation or injury. 10-Not Attempted due to Environmental Limitations-(lack of equipment, weather restraints, etc.). 88-Not Attempted due to Medical Conditions or Safety Concerns. Roll Left & Right (QC): 6 Sit to Lying (QC): 6 Lying to Sitting/Side of Bed(Q: 6 Sit to Stand (QC): 6 Chair/Jxs-cf-Giijc Xfer(QC): 4 Toilet Transfer (QC): 4 Patient used toilet after ambulation and did it with SBA Weight Bearing sling left arm Gait Training Distance: 400'x2 Walk 10 feet (QC): 4 Walk 50 ft with 2 Turns(QC): 4 Walk 150 ft (QC): 4 Gait Assistive Device: None SBA, slow but steady ambulation Treatments bed mobility and transfers, ambulation Assessment Current Status: Fair Progress Slowly improving balance and endurance PT Short Term Goals Short Term Goals Time Frame: January 07, 2020 Roll Left & Right: 6 Sit to lyin Lying to sitting on side of be: 6 Sit to stand: 4 Chair/grs-xa-iwlyb transfer: 4 Walk 10 feet: 4 Walk 50 feet with two turns: 4 Walk 150 feet: 4 PT Computer Graphic Artist Goals Nursing Home Goals PT Nursing Home Goals Time Frame: Jan 21, 2020 Roll Left & Right (QC): 6 Sit to Lying (QC): 6 Lying-Sitting on Side/Bed(QC): 6 Sit to Stand (QC): 6 Chair/Mvg-sf-Rwxxm Xfer(QC): 5 Toilet Transfer (QC): 5 Car Transfer (QC): 5 Does the Patient Walk: Yes Walk 10 feet (QC): 5 Walk 50ft with 2 Turns (QC): 5 Walk 150 ft (QC): 5 Walking 10ft on Uneven Surface: 5 1 Step (curb) (QC): 4 4 Steps (QC): 4 12 Steps (QC): 4 Picking up an Object (QC): 5 Wheel 50 feet with 2 turns (QC: 9 Wheel 150 feet: 9 PT Plan Problem List Problem List: Activity Tolerance, Functional Strength, Safety, Balance, Gait, Transfer Treatment/Plan Treatment Plan: Continue Plan of Care Treatment Plan: Education, Functional Activity [place], Functional Strength, Group Therapy, Gait, Safety, Therapeutic Exercise, Transfers Treatment Duration: Jan 21, 2020 Frequency: At least 5 of 7 days/Wk (IRF) Estimated Hrs Per Day: 1.5 hours per day Patient and/or Family Agrees t: Yes Safety Risks/Education Patient Education: Gait Training, Transfer Techniques, Correct Positioning, Safety Issues Teaching Recipient: Patient Teaching Methods: Demonstration, Discussion Response to Teaching: Reinforcement Needed Time/GCodes Time In: 1300 Time Out: 1315 Total Billed Treatment Time: 15 Total Billed Treatment 1 visit GT 15' MAYRA MCCRACKEN PT January 02, 2020 13:18
[2020-01-02] MEDS: ENOXAPARIN 40 MG/0.4 ML (LOVENOX) SYR SC SCH (14:36)
[2020-01-02 17:18] VITALS: BP 144/67
[2020-01-02] MEDS: MELATONIN 3 MG TABLET PO PRN (22:00)
[2020-01-03] MEDS: RT-ALBUTEROL/IPRATROPIUM 3 ML (DUONEB) VIAL INH SCH ×6 (02:23→22:02)
[2020-01-03 05:35] VITALS: BP 154/77
[2020-01-03] MEDS: ADVAIR DISKUS 250/50 IH SCH ×2 (07:10→18:26)
[2020-01-03] MEDS: metFORMIN XR 500 MG (GLUCOPHAGE XR) TAB PO SCH (08:47)
[2020-01-03] MEDS: guaiFENesin/CODEINE (ROBITUSSIN AC) 10ML UDC PO PRN (08:47)
[2020-01-03] MEDS: MONTELUKAST 10 MG (SINGULAIR) TAB PO SCH (08:48)
[2020-01-03] MEDS: ASPIRIN E.C. 81 MG (ECOTRIN) TAB PO SCH (08:48)
[2020-01-03] MEDS: amLODIPine 10 MG (NORVASC) TAB PO SCH (08:48)
[2020-01-03] MEDS: polyethylene glycoL POWDER 17 GM (MIRALAX) PACK PO SCH ×2 (08:54→20:28)
--- NOTE | 2020-01-03 08:58 | Physical Therapy Daily Note ---
PT Daily Note-Current Subjective Patient in bed pre tx, agrees to PT, has no complaints of pain. Appearance Patient BTB post tx with nurse call, phone, tray, bed alarm on, nurse in room. Mental Status Patient Orientation: Person, Confused, Mumbles left arm sling Transfers SCALE: Activities may be completed with or without assistive devices. 2-Wsrnctagnf-ixcaiyi completes the activity by him/herself with no assistance from a helper. 5-Set-up or Clean-up Assistance-helper sets up or cleans up; patient completes activity. [place] assists only prior to or following the activity. 4-Supervision or Touching Assistance-helper provides verbal cues and/or touching/steadying and/or contact guard assistance as patient completes activity. Assistance may be provided throughout the activity or intermittently. 3-Partial/Moderate Assistance-helper does LESS THAN HALF the effort. [place] lifts, holds or supports trunk or limbs, but provides less than half the effort. 2-Substantial/Maximal Assistance-helper does MORE THAN HALF the effort. [place] lifts or holds trunk or limbs and provides more than half the effort. 9-Ilansocjt-jabgpy does ALL the effort. Patient does none of the effort to complete the activity. Or, the assistance of 2 or more helpers is required for the patient to complete the activity. If activity was not attempted, code reason: 7-Patient Refused. 9-Not Applicable-not attempted and the patient did not perform the activity before the current illness, exacerbation or injury. 10-Not Attempted due to Environmental Limitations-(lack of equipment, weather restraints, etc.). 88-Not Attempted due to Medical Conditions or Safety Concerns. Roll Left & Right (QC): 6 Sit to Lying (QC): 6 Lying to Sitting/Side of Bed(Q: 6 Sit to Stand (QC): 6 Chair/Sej-qb-Wwrsf Xfer(QC): 4 Weight Bearing sling left arm Gait Training Distance: 400'x2 Walk 10 feet (QC): 4 Walk 50 ft with 2 Turns(QC): 4 Walk 150 ft (QC): 4 Gait Assistive Device: None poor foot clearance, slow but steady, has knee pain bilaterally during ambulation Exercises Standing: Hip Abduction, Heel/toe raises, Marching, Mini squats Standing Reps: 15 LAQ alternating for 5 min NuStep Minutes: 15 NuStep Workload: 5 Treatments bed mobility and transfers, ambulation, functional strengthening Assessment Current Status: Fair Progress improving balance and ambulation PT Short Term Goals Short Term Goals Time Frame: January 07, 2020 Roll Left & Right: 6 Sit to lyin Lying to sitting on side of be: 6 Sit to stand: 4 Chair/rav-vx-sbvlo transfer: 4 Walk 10 feet: 4 Walk 50 feet with two turns: 4 Walk 150 feet: 4 PT Fdc Goals Fdc Goals PT Capacity Planner Goals Time Frame: Jan 21, 2020 Roll Left & Right (QC): 6 Sit to Lying (QC): 6 Lying-Sitting on Side/Bed(QC): 6 Sit to Stand (QC): 6 Chair/Uoy-uf-Nywph Xfer(QC): 5 Toilet Transfer (QC): 5 Car Transfer (QC): 5 Does the Patient Walk: Yes Walk 10 feet (QC): 5 Walk 50ft with 2 Turns (QC): 5 Walk 150 ft (QC): 5 Walking 10ft on Uneven Surface: 5 1 Step (curb) (QC): 4 4 Steps (QC): 4 12 Steps (QC): 4 Picking up an Object (QC): 5 Wheel 50 feet with 2 turns (QC: 9 Wheel 150 feet: 9 PT Plan Problem List Problem List: Activity Tolerance, Functional Strength, Safety, Balance, Gait, Transfer Treatment/Plan Treatment Plan: Continue Plan of Care Treatment Plan: Education, Functional Activity [place], Functional Strength, Group Therapy, Gait, Safety, Therapeutic Exercise, Transfers Treatment Duration: Jan 21, 2020 Frequency: At least 5 of 7 days/Wk (IRF) Estimated Hrs Per Day: 1.5 hours per day Patient and/or Family Agrees t: Yes Safety Risks/Education Patient Education: Gait Training, Transfer Techniques, Reviewed Precautions, Correct Positioning, Safety Issues Teaching Recipient: Patient Teaching Methods: Demonstration, Discussion Response to Teaching: Reinforcement Needed Time/GCodes Time In: 0800 Time Out: 0900 Total Billed Treatment Time: 60 Total Billed Treatment 1 visit GT 20' FA 10' EX 30' MAYRA MCCRACKEN PT January 03, 2020 08:58
--- NOTE | 2020-01-03 09:07 | PM&R Progress Note ---
Subjective HPI/CC On Admission Date Seen by Provider: January 03, 2020 Time Seen by Provider: 09:15 Subjective/Events-last exam Cough is still present Advair and Singulair is maintained along with breathing treatments Refuses to stop smoking Oxygen is a little bit low which he does have COPD due to continued smoking. RT will place him on O2 for now Does not want to go home on Oxygen Conferred with RN Reviewed therapy notes Checked meds and labs Review of Systems Musculoskeletal: arm pain Objective Exam Vital Signs Vital Signs Date Time Temp Pulse Resp B/P (MAP) Pulse Ox O2 Delivery O2 Flow Rate FiO2 01/03/20 17:09 36.5 61 18 104/61 (75) 91 Nasal Cannula 2.00 Capillary Refill : Less Than 3 SecondsLess Than 3 Seconds General Appearance: No Apparent Distress, WD/WN, Chronically ill HEENT: Pharynx Normal, Other (left eyelid edematous with bruising) Neck: Full Range of Motion, Normal Inspection, Non Tender, Supple, Carotid Bruit Respiratory: Chest Non Tender, No Accessory Muscle Use, No Respiratory Distress, Decreased Breath Sounds, Rales, Wheezing Cardiovascular: Regular Rate, Rhythm, No Edema, No Gallop, No JVD, No Murmur, Normal Peripheral Pulses Gastrointestinal: Normal Bowel Sounds, No Organomegaly, No Pulsatile Mass, Non Tender, Soft Back: Normal Inspection, No CVA Tenderness, No Vertebral Tenderness Extremity: Normal Capillary Refill, Normal Inspection, Normal Range of Motion (except left arm in sling), Non Tender, No Calf Tenderness, No Pedal Edema Neurologic/Psychiatric: Alert, Oriented x3, No Motor/Sensory Deficits (pre- existing weakness left extremities from brain surgery hx), Normal Mood/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 FIM Transfers Therapy Code Descriptions/Definitions Functional [place] Measure: 0=Not Assessed/NA 4=Minimal Assistance 1=Total Assistance 5=Supervision or Setup 2=Maximal Assistance 6=Modified [place] 3=Moderate Assistance 7=Complete IndependenceSCALE: Activities may be completed with or without assistive devices. 4-Fjqjzwbwds-eomvkil completes the activity by him/herself with no assistance from a helper. 5-Set-up or Clean-up Assistance-helper sets up or cleans up; patient completes activity. [place] assists only prior to or following the activity. 4-Supervision or Touching Assistance-helper provides verbal cues and/or touching/steadying and/or contact guard assistance as patient completes activity. Assistance may be provided throughout the activity or intermittently. 3-Partial/Moderate Assistance-helper does LESS THAN HALF the effort. [place] lifts, holds or supports trunk or limbs, but provides less than half the effort. 2-Substantial/Maximal Assistance-helper does MORE THAN HALF the effort. [place] lifts or holds trunk or limbs and provides more than half the effort. 3-Umrpzpioh-ujxogt does ALL the effort. Patient does none of the effort to complete the activity. Or, the assistance of 2 or more helpers is required for the patient to complete the activity. If activity was not attempted, code reason: 7-Patient Refused. 9-Not Applicable-not attempted and the patient did not perform the activity before the current illness, exacerbation or injury. 10-Not Attempted due to Environmental Limitations-(lack of equipment, weather restraints, etc.). 88-Not Attempted due to Medical Conditions or Safety Concerns. Roll Left to Right (QC): 6 Sit to Lying (QC): 6 Sit to Stand (QC): 6 Chair/Xen-xv-Qinpp Xfer(QC): 4 Car Transfer (QC): 4 Gait Training Does the Patient Walk?: Yes Distance: 400'x2 Walk 10 feet (QC): 4 Walk 50 ft with 2 Turns(QC): 4 Walk 150 ft (QC): 4 Walking 10ft/uneven surface-QC: 4 Gait Persons Needed: 1 Gait Assistive Device: None Wheelchair Training Does the Pt Use a Wheelchair?: No Wheel 50 ft with 2 turns (QC): 9 Wheel 150 ft (QC): 9 Stair Training #of Steps: 4 1 Step (curb) (QC): 3 4 Steps (QC): 3 12 Steps (QC): 88 Balance Picking up an Object (QC): 88 ADL-Treatment Eating (QC): 6 Oral Hygiene (QC): 7 (Pt declined to complete) Shower/Bathe Self (QC): 3 (Sponge bath completed seated EOB. Pt able to wash upper body, but requires assist for lower legs/feet and CGA for balance while washing buttocks and d[place]las area.) Upper Body Dressing (QC): 2 (Max assist to doff shirt. Education provided regarding UE dressing technique. Pt has difficulty following recommendations and requires max assist to don shirt. Decreased problem solving. Assist to manage sling on left UE) Lower Body Dressing (QC): 3 (Pt doffed pants with min assist for balance. Able to thread one leg into undewear and pants, but assist for other LE. Stood with CGA. Pt able to pull pants up over right hip, but assist with pant hike on left. ) On/Off Footwear (QC): 2 (Pt requires assist to doff/don socks. Pt dons shoes with elastic shoelaces with mod assist and cues for technique.) Toileting Hygiene (QC): 4 (CGA in stance for bottom hygiene. ) Toilet Transfer (QC): 4 (CGA in stance at toilet.) Assessment/Plan Assessment and Plan Assess & Plan/Chief Complaint Assessment: Severe fall Left hand shattered fracture Left facial hematoma COPD Wheezing Smoker HTN HLP DM OOC Cognitive deficit 05/21 [facility] Brain surgery at 34yo Plan: Pain control BM regimen Nebs Monitor wheezing IRF protocol Fall prevention O2 for now (1) Facial hematoma (2) Left hand fracture (3) History of brain surgery (4) Cognitive deficits (5) COPD (chronic obstructive pulmonary disease) (6) Wheezing (7) Smoker (8) Diabetes (9) Hypertension (10) Hyperlipemia FAUSTINO GAITAN DO January 03, 2020 09:07
[2020-01-03] MEDS: HYDROcodone/APAP 7.5 MG/325 MG (LORTAB, LORCET PLUS) TABLET PO PRN ×2 (09:34→23:44)
[2020-01-03] MEDS: SENNA W/DOCUSATE (SENOKOT S) TABLET PO SCH ×2 (09:34→20:28)
[2020-01-03] MEDS: DOCUSATE SODIUM 100 MG (COLACE) CAP PO SCH ×2 (09:34→20:28)
[2020-01-03] MEDS ORDERED: LORATADINE (CLARITIN) 10 MG TAB PO ONE (09:45)
--- NOTE | 2020-01-03 10:04 | NUR ---
CM/SS PATIENT CARE CONFERENCE Reviewed Conference summary with patient yesterday p.m. and with patient's DPOA-HC/DIL Apriloliva Villanueva this a.m. They are both in agreement to target discharge date of 01/08/20 and April plans brick picker time of approximately 1130. Communication board updated. HHC: Team does not indicate need for HHC at this time. Patient is ambulating independently with therapy, no assistive devices. His arm care plan does not require prison intervention, current orders are for unwrapping, cleansing and rewrapping every 2 days, continuing splint and sling. DME: Reviewed with April, no new DME needed. IN-HOME SERVICES: In home schedule of services will resume and, as earlier noted, April plans to have someone present with patient at all times until they believe he is safe alone for short periods. Continue intermittent review of patient progression toward discharge for any circumstances requiring alternative post hospital plan.
--- NOTE | 2020-01-03 11:57 | Occupational Ther Daily Note ---
OT Current Status-Daily Note Subjective Pt seen in bed. Pt's nurse present, states pt's 02 sats in 80s. Pt monitored during session. Pt agrees to therapy, states pain "all over," nursing administers pain meds. Mental Status/Objective Attachments: Oxygen (2L) ADL-Treatment Therapy Code Descriptions/Definitions Functional [place] Measure: 0=Not Assessed/NA 4=Minimal Assistance 1=Total Assistance 5=Supervision or Setup 2=Maximal Assistance 6=Modified [place] 3=Moderate Assistance 7=Complete IndependenceSCALE: Activities may be completed with or without assistive devices. 3-Okoovnqslp-rdllcfp completes the activity by him/herself with no assistance from a helper. 5-Set-up or Clean-up Assistance-helper sets up or cleans up; patient completes activity. [place] assists only prior to or following the activity. 4-Supervision or Touching Assistance-helper provides verbal cues and/or touching/steadying and/or contact guard assistance as patient completes activity. Assistance may be provided throughout the activity or intermittently. 3-Partial/Moderate Assistance-helper does LESS THAN HALF the effort. [place] lifts, holds or supports trunk or limbs, but provides less than half the effort. 2-Substantial/Maximal Assistance-helper does MORE THAN HALF the effort. [place] lifts or holds trunk or limbs and provides more than half the effort. 8-Jnnddxoni-szgtnh does ALL the effort. Patient does none of the effort to complete the activity. Or, the assistance of 2 or more helpers is required for the patient to complete the activity. If activity was not attempted, code reason: 7-Patient Refused. 9-Not Applicable-not attempted and the patient did not perform the activity before the current illness, exacerbation or injury. 10-Not Attempted due to Environmental Limitations-(lack of equipment, weather restraints, etc.). 88-Not Attempted due to Medical Conditions or Safety Concerns. Bathing Location: L Arm, L Upper Leg, R Upper Leg, L Lower Leg (including foot), R Lower Leg (including foot), Chest, Abdomen, Buttocks, Perineal Area Shower/Bathe Self (QC): 3 (min A for back/ R underarm washing. CGA during stance for bottom/ douglas hygiene. ) Upper Body Dressing (QC): 5 (pt doffs/ dons sling with SBA and min cues. Pt doffs/ dons shirt with s/u.) Lower Body Dressing (QC): 4 (SBA during donning and doffing.) On/Off Footwear: 4 (SBA as pt leans EOB. Completes with good balance. ) Toileting Hygiene (QC): 4 (SBA in stance for bottom hygiene. ) Toilet Transfer (QC): 4 (SBA-SUP during toileting x2 this session.) Other Treatment Pt agrees to sponge bath/ clothing changes. Pt bed mob with IND. Sits EOB for sponge bath, completing with increased IND. pt completes UB dressing with incr eased IND on this date as well. Pt requires SBA during tasks for safety/ balance management. Pt's sats at 84% post-dressing tasks (no 02 cannula donned), pt's cannula donned with 2L pre-set, pt requires max cueing for breathing through nose, able to reach 92% within ~1.5 min. Pt connected to portable tank, ambulates to laundry room to complete tasks with mod cues for directionality and completion of task. Pt's caregiver assists with laundry tasks at home. Pt ambulates without AE to therapy gym. completes balance/ UE exercises while in seated/ in stance with 2# weight with R hand, requiring mod cues for continuation of task. Pt c/o pain during exercises, skilled cues for adaptation in pain-free range. During exercises pt's 02 at 87%, cues for breathing through nose, returns to 90% and does not rise past 90% with additional cues/ breaths. pt returns to room, requests bed (cues for seated position rather than supine, pt agrees). Pt sits with bed alarm on. RT comes in, notified of 02 sats through session. Pt's sats at 88% post-session, left with RT with all needs met, call light in reach, bed alarm on. Education OT Patient Education: Correct positioning, Exercise program, Home exercise program, Progress toward Goal/Update tx plan, Safety issues Teaching Recipient: Patient Teaching Methods: Demonstration, Discussion Response to Teaching: Verbalize Understanding, Return Demonstration, Reinforcement Needed OT Short Term Goals Short Term Goals Time Frame: January 07, 2020 Upper body dressin Lower body dressin OT Automatic Bandsaw Tender Goals Automatic Bandsaw Tender Goals Time Frame: January 14, 2020 Eating (QC): 6 Oral Hygiene (QC): 6 Toileting Hygiene (QC): 6 Shower/Bathe Self (QC): 4 Upper Body Dressing (QC): 6 Lower Body Dressing (QC): 6 On/Off Footwear (QC): 6 1=Demonstrate adherence to instructed precautions during ADL tasks. 2=Patient will verbalize/demonstrate understanding of assistive devices/modifications for ADL. 3=Patient will improve strength/tolerance for activity to enable patient to perform ADL's. OT Education/Plan Problem List/Assessment Assessment: Decreased Activ Tolerance, Decreased Safety Aware, Decreased UE Strength, Impaired Cognition, Impaired Coordination, Impaired Funct Balance, Impaired I ADL's, Impaired Self-Care Skills Discharge Recommendations Plan/Recommendations: Continue POC Therapy Discharge Recommendati: Scheduled Assistance, Home & Family Treatment Plan/Plan of Care Treatment,Training & Education: Yes Patient would benefit from OT for education, treatment and training to promote independence in ADL's, mobility, safety and/or upper extremity function for ADL's. Plan of Care: ADL Retraining, Functional Mobility, Group Exercise/Act as Ind, Orthotic Fitting/Training, UE Funct Exercise/Act Treatment Duration: January 14, 2020 Frequency: At least 5 of 7 days/Wk (IRF) Estimated Hrs Per Day: 1.5 hours per day Agreement: Yes Rehab Potential: Fair Time/GCodes Start Time: 09:15 Stop Time: 10:30 Total Time Billed (hr/min): 75 Billed Treatment Time 1, ADL 3 (45), EX 2 (30)= (75) GEORGI MANZANARES OTR January 03, 2020 11:57
--- NOTE | 2020-01-03 13:20 | Physical Therapy Daily Note ---
PT Daily Note-Current Subjective Patient in bed pre tx, agrees to PT, has no complaints of pain. Patient now has a nasal canual on, O2 tested without oxygen and it was at 87%, he will ambulate with O2. Appearance Patient in bed post tx with nurse call, phone, tray, all needs met. Mental Status Patient Orientation: Person, Confused, Mumbles Attachments: Oxygen left arm sling Transfers SCALE: Activities may be completed with or without assistive devices. 5-Ljyyifwbyh-tbjakyl completes the activity by him/herself with no assistance from a helper. 5-Set-up or Clean-up Assistance-helper sets up or cleans up; patient completes activity. [place] assists only prior to or following the activity. 4-Supervision or Touching Assistance-helper provides verbal cues and/or touching/steadying and/or contact guard assistance as patient completes activity. Assistance may be provided throughout the activity or intermittently. 3-Partial/Moderate Assistance-helper does LESS THAN HALF the effort. [place] lifts, holds or supports trunk or limbs, but provides less than half the effort. 2-Substantial/Maximal Assistance-helper does MORE THAN HALF the effort. [place] lifts or holds trunk or limbs and provides more than half the effort. 8-Vojqrrywb-ypvznx does ALL the effort. Patient does none of the effort to complete the activity. Or, the assistance of 2 or more helpers is required for the patient to complete the activity. If activity was not attempted, code reason: 7-Patient Refused. 9-Not Applicable-not attempted and the patient did not perform the activity before the current illness, exacerbation or injury. 10-Not Attempted due to Environmental Limitations-(lack of equipment, weather restraints, etc.). 88-Not Attempted due to Medical Conditions or Safety Concerns. Roll Left & Right (QC): 6 Sit to Lying (QC): 6 Lying to Sitting/Side of Bed(Q: 6 Sit to Stand (QC): 6 Chair/Jgx-gw-Zrnaj Xfer(QC): 4 Weight Bearing sling left arm Gait Training Distance: 400'x2 Walk 10 feet (QC): 4 Walk 50 ft with 2 Turns(QC): 4 Walk 150 ft (QC): 4 Gait Assistive Device: None SBA, slow but steady ambulation, patient coughed a lot, cues for purse lip britany athing Treatments bed mobility and transfers, ambulation Assessment Current Status: Poor Progress a little more SOB with ambulation PT Short Term Goals Short Term Goals Time Frame: January 07, 2020 Roll Left & Right: 6 Sit to lyin Lying to sitting on side of be: 6 Sit to stand: 4 Chair/whc-rx-dpkch transfer: 4 Walk 10 feet: 4 Walk 50 feet with two turns: 4 Walk 150 feet: 4 PT Mcc Goals Mcc Goals PT Banquet Supervisor Goals Time Frame: Jan 21, 2020 Roll Left & Right (QC): 6 Sit to Lying (QC): 6 Lying-Sitting on Side/Bed(QC): 6 Sit to Stand (QC): 6 Chair/Riq-ud-Xumep Xfer(QC): 5 Toilet Transfer (QC): 5 Car Transfer (QC): 5 Does the Patient Walk: Yes Walk 10 feet (QC): 5 Walk 50ft with 2 Turns (QC): 5 Walk 150 ft (QC): 5 Walking 10ft on Uneven Surface: 5 1 Step (curb) (QC): 4 4 Steps (QC): 4 12 Steps (QC): 4 Picking up an Object (QC): 5 Wheel 50 feet with 2 turns (QC: 9 Wheel 150 feet: 9 PT Plan Problem List Problem List: Activity Tolerance, Functional Strength, Safety, Balance, Gait, Transfer Treatment/Plan Treatment Plan: Continue Plan of Care Treatment Plan: Education, Functional Activity [place], Functional Strength, Group Therapy, Gait, Safety, Therapeutic Exercise, Transfers Treatment Duration: Jan 21, 2020 Frequency: At least 5 of 7 days/Wk (IRF) Estimated Hrs Per Day: 1.5 hours per day Patient and/or Family Agrees t: Yes Safety Risks/Education Patient Education: Gait Training, Transfer Techniques, Correct Positioning, Safety Issues Teaching Recipient: Patient Teaching Methods: Demonstration, Discussion Response to Teaching: Reinforcement Needed Time/GCodes Time In: 1300 Time Out: 1315 Total Billed Treatment Time: 15 Total Billed Treatment 1 visit GT 15' MAYRA MCCRACKEN PT January 03, 2020 13:20
[2020-01-03] MEDS: ENOXAPARIN 40 MG/0.4 ML (LOVENOX) SYR SC SCH (13:55)
--- NOTE | 2020-01-03 14:28 | Speech Therapy Daily Note ---
Speech Daily Progress Note Subjective Date Seen by Provider: January 03, 2020 Time Seen by Provider: 00:30 Patient was resting in his bed following the PT session. Patient was awake and participated with ST. Objective Patient completed a series of "fill in the blank" sentences with 85% accuracy given min to mod cues. Assessment Assessment Current Status: Good Progress Treatment Plan Continue Plan of Care Speech Short Term Goals Short Term Goals Short Term Goals 1) Patient will complete memory tasks as directed with 75% accuracy given minimal cues. 2) Patient will complete sequencing tasks as directed with 75% accuracy given minimal cues. j3) Patient will complete following directional tasks as directed with 75% accuracy given minimal cues. Speech Timber Packer Goals Timber Packer Goals Patient will improve his cognitive-communicative status so that he may require minimal assist and/or cues. Speech-Plan Patient/Family Goals Patient/Family Goals: Patient plans on returning to his apartment where he has good family support. Treatment Plan Speech Therapy Treatment Plan: Continue Plan of Care Treatment Duration: January 16, 2020 Frequency: 5 times per week Estimated Hrs Per Day: .5 hour per day Rehab Potential: Fair Barriers to Learning: Patient's current health status and cognitive deficits Pt/Family Agrees to Plan: Yes Safety Risks/Education Teaching Recipient: Patient Teaching Methods: Demonstration, Discussion Response to Teaching: Verbalize Understanding, Return Demonstration Education Topics Provided: Continued safety within his room. Time Speech Therapy Time In: 13:30 Speech Therapy Time Out: 14:00 Total Billed Time: 30 Billed Treatment Time 1KRISTOPHER BETH[address] ST January 03, 2020 14:28
[2020-01-03 17:09] VITALS: BP 104/61
[2020-01-03] MEDS: MELATONIN 3 MG TABLET PO PRN (20:27)
[2020-01-04] MEDS: RT-ALBUTEROL/IPRATROPIUM 3 ML (DUONEB) VIAL INH SCH ×6 (02:29→22:25)
[2020-01-04 06:00] VITALS: BP 143/76
[2020-01-04] MEDS: ADVAIR DISKUS 250/50 IH SCH ×2 (06:31→18:57)
[2020-01-04] MEDS: guaiFENesin/CODEINE (ROBITUSSIN AC) 10ML UDC PO PRN (06:38)
--- NOTE | 2020-01-04 08:51 | PM&R Progress Note ---
Subjective HPI/CC On Admission Date Seen by Provider: January 04, 2020 Time Seen by Provider: 09:00 Subjective/Events-last exam Cough is still present but appears chronic Advair and Singulair is maintained along with breathing treatments Refuses to stop smoking Oxygen is a little bit low which he does have COPD due to continued smoking. RT will place him on O2 for now Does not want to go home on Oxygen Conferred with RN Reviewed therapy notes Checked meds and labs Review of Systems General: Fatigue Musculoskeletal: arm pain Neurological: Confusion Objective Exam Vital Signs Vital Signs Date Time Temp Pulse Resp B/P (MAP) Pulse Ox O2 Delivery O2 Flow Rate FiO2 01/05/20 06:39 90 Nasal Cannula 3.00 01/05/20 06:00 36.8 74 22 120/69 (86) Capillary Refill : Less Than 3 SecondsLess Than 3 Seconds General Appearance: No Apparent Distress, WD/WN, Chronically ill HEENT: Pharynx Normal, Other (left eyelid edematous with bruising) Neck: Full Range of Motion, Normal Inspection, Non Tender, Supple, Carotid Bruit Respiratory: Chest Non Tender, No Accessory Muscle Use, No Respiratory Distress, Decreased Breath Sounds, Rales, Wheezing Cardiovascular: Regular Rate, Rhythm, No Edema, No Gallop, No JVD, No Murmur, Normal Peripheral Pulses Gastrointestinal: Normal Bowel Sounds, No Organomegaly, No Pulsatile Mass, Non Tender, Soft Back: Normal Inspection, No CVA Tenderness, No Vertebral Tenderness Extremity: Normal Capillary Refill, Normal Inspection, Normal Range of Motion (except left arm in sling), Non Tender, No Calf Tenderness, No Pedal Edema Neurologic/Psychiatric: Alert, Oriented x3, No Motor/Sensory Deficits (pre- existing weakness left extremities from brain surgery hx), Normal Mood/Affect, microphone operator II-XII Norm as 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 FIM Transfers Therapy Code Descriptions/Definitions Functional [place] Measure: 0=Not Assessed/NA 4=Minimal Assistance 1=Total Assistance 5=Supervision or Setup 2=Maximal Assistance 6=Modified [place] 3=Moderate Assistance 7=Complete IndependenceSCALE: Activities may be completed with or without assistive devices. 0-Vegttdjnxb-imluewe completes the activity by him/herself with no assistance from a helper. 5-Set-up or Clean-up Assistance-helper sets up or cleans up; patient completes activity. [place] assists only prior to or following the activity. 4-Supervision or Touching Assistance-helper provides verbal cues and/or touching/steadying and/or contact guard assistance as patient completes activity. Assistance may be provided throughout the activity or intermittently. 3-Partial/Moderate Assistance-helper does LESS THAN HALF the effort. [place] lifts, holds or supports trunk or limbs, but provides less than half the effort. 2-Substantial/Maximal Assistance-helper does MORE THAN HALF the effort. [place] lifts or holds trunk or limbs and provides more than half the effort. 4-Xlkjxjeze-ozptev does ALL the effort. Patient does none of the effort to complete the activity. Or, the assistance of 2 or more helpers is required for the patient to complete the activity. If activity was not attempted, code reason: 7-Patient Refused. 9-Not Applicable-not attempted and the patient did not perform the activity before the current illness, exacerbation or injury. 10-Not Attempted due to Environmental Limitations-(lack of equipment, weather restraints, etc.). 88-Not Attempted due to Medical Conditions or Safety Concerns. Roll Left to Right (QC): 6 Sit to Lying (QC): 6 Sit to Stand (QC): 6 Chair/Ilf-bi-Kdgmg Xfer(QC): 4 Car Transfer (QC): 4 Gait Training Does the Patient Walk?: Yes Distance: 400'x2 Walk 10 feet (QC): 4 Walk 50 ft with 2 Turns(QC): 4 Walk 150 ft (QC): 4 Walking 10ft/uneven surface-QC: 4 Gait Persons Needed: 1 Gait Assistive Device: None Wheelchair Training Does the Pt Use a Wheelchair?: No Wheel 50 ft with 2 turns (QC): 9 Wheel 150 ft (QC): 9 Stair Training #of Steps: 4 1 Step (curb) (QC): 3 4 Steps (QC): 3 12 Steps (QC): 88 Balance Picking up an Object (QC): 88 ADL-Treatment Eating (QC): 6 Oral Hygiene (QC): 7 (Pt declined to complete) Bathing Location: L Arm, L Upper Leg, R Upper Leg, L Lower Leg (including foot), R Lower Leg (including foot), Chest, Abdomen, Buttocks, Perineal Area Shower/Bathe Self (QC): 3 (min A for back/ R underarm washing. CGA during stance for bottom/ douglas hygiene. ) Upper Body Dressing (QC): 5 (pt doffs/ dons sling with SBA and min cues. Pt doffs/ dons shirt with s/u.) Lower Body Dressing (QC): 4 (SBA during donning and doffing.) On/Off Footwear (QC): 4 (SBA as pt leans EOB. Completes with good balance. ) Toileting Hygiene (QC): 4 (SBA in stance for bottom hygiene. ) Toilet Transfer (QC): 4 (SBA-SUP during toileting x2 this session.) Assessment/Plan Assessment and Plan Assess & Plan/Chief Complaint Assessment: Severe fall Left hand shattered fracture Left facial hematoma COPD Wheezing Smoker HTN HLP DM OOC Cognitive deficit 05/21 [facility] Brain surgery at 34yo Plan: Pain control BM regimen Nebs Monitor wheezing IRF protocol Fall prevention O2 for now (1) Facial hematoma (2) Left hand fracture (3) History of brain surgery (4) Cognitive deficits (5) COPD (chronic obstructive pulmonary disease) (6) Wheezing (7) Smoker (8) Diabetes (9) Hypertension (10) Hyperlipemia FAUSTINO GAITAN DO January 04, 2020 08:51
[2020-01-04] MEDS: polyethylene glycoL POWDER 17 GM (MIRALAX) PACK PO SCH ×2 (09:07→21:13)
[2020-01-04] MEDS: ASPIRIN E.C. 81 MG (ECOTRIN) TAB PO SCH (09:29)
[2020-01-04] MEDS: MONTELUKAST 10 MG (SINGULAIR) TAB PO SCH (09:29)
[2020-01-04] MEDS: amLODIPine 10 MG (NORVASC) TAB PO SCH (09:29)
[2020-01-04] MEDS: metFORMIN XR 500 MG (GLUCOPHAGE XR) TAB PO SCH (09:29)
[2020-01-04] MEDS: LORATADINE (CLARITIN) 10 MG TAB PO SCH (09:29)
[2020-01-04] MEDS: DOCUSATE SODIUM 100 MG (COLACE) CAP PO SCH ×2 (09:29→21:25)
[2020-01-04] MEDS: SENNA W/DOCUSATE (SENOKOT S) TABLET PO SCH ×2 (09:29→21:24)
--- NOTE | 2020-01-04 09:37 | Occupational Ther Daily Note ---
OT Current Status-Daily Note Subjective Pt seen in bed this am. Pt agrees to therapy, states pain "all over." Pt then states pain is "okay." ADL-Treatment Therapy Code Descriptions/Definitions Functional [place] Measure: 0=Not Assessed/NA 4=Minimal Assistance 1=Total Assistance 5=Supervision or Setup 2=Maximal Assistance 6=Modified [place] 3=Moderate Assistance 7=Complete IndependenceSCALE: Activities may be completed with or without assistive devices. 5-Ohbusmnvzq-ntprsgy completes the activity by him/herself with no assistance from a helper. 5-Set-up or Clean-up Assistance-helper sets up or cleans up; patient completes activity. [place] assists only prior to or following the activity. 4-Supervision or Touching Assistance-helper provides verbal cues and/or touching/steadying and/or contact guard assistance as patient completes activity. Assistance may be provided throughout the activity or intermittently. 3-Partial/Moderate Assistance-helper does LESS THAN HALF the effort. [place] lifts, holds or supports trunk or limbs, but provides less than half the effort. 2-Substantial/Maximal Assistance-helper does MORE THAN HALF the effort. [place] lifts or holds trunk or limbs and provides more than half the effort. 8-Abisdjmqh-xonvkc does ALL the effort. Patient does none of the effort to complete the activity. Or, the assistance of 2 or more helpers is required for the patient to complete the activity. If activity was not attempted, code reason: 7-Patient Refused. 9-Not Applicable-not attempted and the patient did not perform the activity before the current illness, exacerbation or injury. 10-Not Attempted due to Environmental Limitations-(lack of equipment, weather restraints, etc.). 88-Not Attempted due to Medical Conditions or Safety Concerns. Eating (QC): 6 Oral Hygiene (QC): 7 Bathing Location: L Arm, L Upper Leg, R Upper Leg, L Lower Leg (including foot), R Lower Leg (including foot), Chest, Abdomen, Buttocks, Perineal Area Shower/Bathe Self (QC): 3 (min A for R UE and SBA in stance/ EOB during bathing task) Upper Body Dressing (QC): 3 (doffs loose shirt and sling with INDmin A for donning tighter shirt/ cues for completing L UE dressing first. ) Lower Body Dressing (QC): 4 (SBA while pt dons EOB/ stands to don over hips with increased time.) On/Off Footwear: 6 (IND while EOB (shoes with adaptive laces)) Toileting Hygiene (QC): 4 (SBA during bottom/ douglas hygiene.) Toilet Transfer (QC): 4 (SUP during toileting in stance at toilet.) Other Treatment [id number]: Pt completes ADL showering/ dressing tasks on this date. Pt decreases in UB dressing QC level due to tightness of shirt, though requires additional cues for dressing sequence as well. Pt toilets and returns EOB, post-dressing/ bathing pt's 02 at 75%. Pt's nasal cannula re-donned and cues for breathing in through nose needed for recovery to 90% within 1 min. Pt connected to 02 tank and ambulates to therapy gym with SBA. Pt completes reaching/ UE ROM/ balance task while in stance with RUE. Pt completes arm arc 4x with 2# wrist weight donned 2/4 times. Pt completes with good balance. Pt requires rest break 2x during this task, sits EOM and 02 mid-80's. Pt requires additional cues for recovery. Sits EOM to complete UE ex with 2# weight donned, including 15 reps of the following: shoulder flexion(states pain and modified to shoulder horizontal add/abduction), bicep curls, tricep extensions in gravity eliminated, and wrist flex/ extension. Pt returns to room, given green hand sponge and completes 15 reps. Pt left in recliner with chair alarm on, all needs met, call light in reach. Education OT Patient Education: Exercise program, Home exercise program, Modified ADL techniques, Safety issues Teaching Recipient: Patient Teaching Methods: Demonstration, Discussion Response to Teaching: Verbalize Understanding, Return Demonstration, Unable to Comprehend (02 and nostril breath, requires continual cueing throughout recovery), Reinforcement Needed OT Short Term Goals Short Term Goals Time Frame: January 07, 2020 Upper body dressin Lower body dressin OT Vocational Director Goals Halfway Goals Time Frame: January 14, 2020 Eating (QC): 6 Oral Hygiene (QC): 6 Toileting Hygiene (QC): 6 Shower/Bathe Self (QC): 4 Upper Body Dressing (QC): 6 Lower Body Dressing (QC): 6 On/Off Footwear (QC): 6 1=Demonstrate adherence to instructed precautions during ADL tasks. 2=Patient will verbalize/demonstrate understanding of assistive devices/modifications for ADL. 3=Patient will improve strength/tolerance for activity to enable patient to perform ADL's. OT Education/Plan Problem List/Assessment Assessment: Decreased Activ Tolerance, Decreased Safety Aware, Decreased UE Strength, Impaired Cognition, Impaired Coordination, Impaired Funct Balance, Impaired I ADL's, Impaired Self-Care Skills, Restricted Funct UE ROM Discharge Recommendations Plan/Recommendations: Continue POC Therapy Discharge Recommendati: Scheduled Assistance, Home & Family Treatment Plan/Plan of Care Treatment,Training & Education: Yes Patient would benefit from OT for education, treatment and training to promote independence in ADL's, mobility, safety and/or upper extremity function for ADL's. Plan of Care: ADL Retraining, Functional Mobility, Group Exercise/Act as Ind, Orthotic Fitting/Training, UE Funct Exercise/Act Treatment Duration: January 14, 2020 Frequency: At least 5 of 7 days/Wk (IRF) Estimated Hrs Per Day: 1.5 hours per day Agreement: Yes Rehab Potential: Fair Time/GCodes Start Time: 08:00 Stop Time: 09:00 Total Time Billed (hr/min): 60 Billed Treatment Time [id number]: 1, ADL 2 (30), EX 2 (30)= 60 GEORGI MANZANARES OTR January 04, 2020 09:37
--- NOTE | 2020-01-04 10:06 | Physical Therapy Daily Note ---
PT Daily Note-Current Subjective Pt. agrees to Rx. Very pleasant, likes conversation. Tells the story of how he fell . Pt. requests to urinate x 3 during rx and has very little output that appears somewhat blood tinged Pain Location: No Pain Reported Appearance see above about urine etc Mental Status Patient Orientation: Normal For Age Attachments: Oxygen (2L), Other-See Comments (sling LUE) Transfers SCALE: Activities may be completed with or without assistive devices. 1-Ctncqtgijb-fveysuh completes the activity by him/herself with no assistance from a helper. 5-Set-up or Clean-up Assistance-helper sets up or cleans up; patient completes activity. [place] assists only prior to or following the activity. 4-Supervision or Touching Assistance-helper provides verbal cues and/or touching/steadying and/or contact guard assistance as patient completes activity. Assistance may be provided throughout the activity or intermittently. 3-Partial/Moderate Assistance-helper does LESS THAN HALF the effort. [place] lifts, holds or supports trunk or limbs, but provides less than half the effort. 2-Substantial/Maximal Assistance-helper does MORE THAN HALF the effort. [place] lifts or holds trunk or limbs and provides more than half the effort. 3-Qqzlipqtf-rmctmy does ALL the effort. Patient does none of the effort to complete the activity. Or, the assistance of 2 or more helpers is required for the patient to complete the activity. If activity was not attempted, code reason: 7-Patient Refused. 9-Not Applicable-not attempted and the patient did not perform the activity before the current illness, exacerbation or injury. 10-Not Attempted due to Environmental Limitations-(lack of equipment, weather restraints, etc.). 88-Not Attempted due to Medical Conditions or Safety Concerns. Roll Left & Right (QC): 6 Sit to Lying (QC): 6 Lying to Sitting/Side of Bed(Q: 6 Sit to Stand (QC): 6 Chair/Ahg-eu-Dtzkg Xfer(QC): 6 Weight Bearing sling left arm Gait Training Does the Patient Walk?: Yes Walk 10 feet (QC): 5 Walk 50 ft with 2 Turns(QC): 5 Walk 150 ft (QC): 5 Gait Persons Needed: 1 Gait Assistive Device: None no LOB, some staggered steps initially but then very solid Exercises Supine Ex: Bridging, Ankle pumps, Rolling, Heel Slides, Short Arc Quads, Scooting, Straight leg raise, Hip abd/add Supine Reps: 20 Seated Therapy Exercises: Ankle pumps, Sit to stand, Long arc quads, Hip flexion Seated Reps: 15 NuStep Minutes: 12 NuStep Workload: 4 Treatments stood at toilet to urinate x 3 with good balance , poor output seemingly frustrating to pt. Assessment Current Status: Good Progress PT Short Term Goals Short Term Goals Time Frame: January 07, 2020 Roll Left & Right: 6 Sit to lyin Lying to sitting on side of be: 6 Sit to stand: 4 Chair/rhq-uj-upngf transfer: 4 Walk 10 feet: 4 Walk 50 feet with two turns: 4 Walk 150 feet: 4 PT Mechanic Foreman Goals Mechanic Foreman Goals PT Mechanic Foreman Goals Time Frame: Jan 21, 2020 Roll Left & Right (QC): 6 Sit to Lying (QC): 6 Lying-Sitting on Side/Bed(QC): 6 Sit to Stand (QC): 6 Chair/[place]yd[place]-Fvhfo Xfer(QC): 5 Toilet Transfer (QC): 5 Car Transfer (QC): 5 Does the Patient Walk: Yes Walk 10 feet (QC): 5 Walk 50ft with 2 Turns (QC): 5 Walk 150 ft (QC): 5 Walking 10ft on Uneven Surface: 5 1 Step (curb) (QC): 4 4 Steps (QC): 4 12 Steps (QC): 4 Picking up an Object (QC): 5 Wheel 50 feet with 2 turns (QC: 9 Wheel 150 feet: 9 PT Plan Treatment/Plan Treatment Plan: Continue Plan of Care Treatment Plan: Education, Functional Activity Latosha, Functional Strength, Group Therapy, Gait, Safety, Therapeutic Exercise, Transfers Treatment Duration: Jan 21, 2020 Frequency: At least 5 of 7 days/Wk (IRF) Estimated Hrs Per Day: 1.5 hours per day Patient and/or Family Agrees t: Yes Safety Risks/Education Patient Education: Gait Training, Transfer Techniques, Correct Positioning, Disease Process, Safety Issues Teaching Recipient: Patient Teaching Methods: Demonstration, Discussion Response to Teaching: Verbalize Understanding, Return Demonstration, Reinforcement Needed Time/GCodes Time In: 900 Time Out: 1000 Total Billed Treatment Time: 60 Total Billed Treatment 1,GT25m,FA15m,EX20m LINDEN CORONADO [employer]ING [employer] January 04, 2020 10:06
--- NOTE | 2020-01-04 10:33 | Speech Therapy Daily Note ---
Speech Daily Progress Note Subjective Date Seen by Provider: January 04, 2020 Time Seen by Provider: 00:30 Patient was resting in his chair, eating a snack following PT when I entered his room. Objective Patient completed a series of q/a related to his return home with 80% given minimal cues. Assessment Assessment Current Status: Good Progress Treatment Plan Continue Plan of Care Speech Short Term Goals Short Term Goals Short Term Goals 1) Patient will complete memory tasks as directed with 75% accuracy given minimal cues. 2) Patient will complete sequencing tasks as directed with 75% accuracy given minimal cues. j3) Patient will complete following directional tasks as directed with 75% accuracy given minimal cues. Speech Shipping Lead Goals Shipping Lead Goals Patient will improve his cognitive-communicative status so that he may require minimal assist and/or cues. Speech-Plan Patient/Family Goals Patient/Family Goals: Patient plans on returning to his apartment upon hospital discharge. Treatment Plan Speech Therapy Treatment Plan: Continue Plan of Care Treatment Duration: January 16, 2020 Frequency: 5 times per week Estimated Hrs Per Day: .5 hour per day Rehab Potential: Fair Barriers to Learning: Patient's cognitive deficits Pt/Family Agrees to Plan: Yes Safety Risks/Education Teaching Recipient: Patient Teaching Methods: Demonstration, Discussion Response to Teaching: Verbalize Understanding, Return Demonstration Education Topics Provided: Continued safety within his room and communication of wants/needs Time Speech Therapy Time In: 10:30 Speech Therapy Time Out: 11:00 Total Billed Time: 30 Billed Treatment Time KRISTOPHER Tapia [address] January 04, 2020 10:33
--- NOTE | 2020-01-04 11:58 | Occupational Ther Daily Note ---
OT Current Status-Daily Note Subjective Pt seated in recliner, stating he needed to use the restroom. He did not report any pain during tx. ADL-Treatment Therapy Code Descriptions/Definitions Functional [place] Measure: 0=Not Assessed/NA 4=Minimal Assistance 1=Total Assistance 5=Supervision or Setup 2=Maximal Assistance 6=Modified [place] 3=Moderate Assistance 7=Complete IndependenceSCALE: Activities may be completed with or without assistive devices. 1-Ftjrpelhti-ocxsgcd completes the activity by him/herself with no assistance from a helper. 5-Set-up or Clean-up Assistance-helper sets up or cleans up; patient completes activity. [place] assists only prior to or following the activity. 4-Supervision or Touching Assistance-helper provides verbal cues and/or touching/steadying and/or contact guard assistance as patient completes activity. Assistance may be provided throughout the activity or intermittently. 3-Partial/Moderate Assistance-helper does LESS THAN HALF the effort. [place] lifts, holds or supports trunk or limbs, but provides less than half the effort. 2-Substantial/Maximal Assistance-helper does MORE THAN HALF the effort. [place] lifts or holds trunk or limbs and provides more than half the effort. 3-Klovlizra-nbznnl does ALL the effort. Patient does none of the effort to complete the activity. Or, the assistance of 2 or more helpers is required for the patient to complete the activity. If activity was not attempted, code reason: 7-Patient Refused. 9-Not Applicable-not attempted and the patient did not perform the activity before the current illness, exacerbation or injury. 10-Not Attempted due to Environmental Limitations-(lack of equipment, weather restraints, etc.). 88-Not Attempted due to Medical Conditions or Safety Concerns. Toileting Hygiene (QC): 4 (SBA urination standing at toilet) Other Treatment Pt seated in recliner, stood from recliner and ambulated to bathroom with SBA to urinate in standing. Pt then returned to the recliner where he completed RUE exercises in order to increase strength and functional endurance. 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 Pt then completed x20 reps biceps curls with red theraband, OT attempted to instruct pt to complete shoulder flexion with verbal cues, tactile cues, and hand over hand assist with movement but pt continued to complete bicep curls. Post OT session, pt seated in recliner, call light in reach and all needs met with chair alarm on. Education OT Patient Education: Correct positioning, Energy conservation, Exercise program, Modified ADL techniques, Progress toward Goal/Update tx plan, Purpose of tx/functional activities Teaching Recipient: Patient Teaching Methods: Discussion Response to Teaching: Verbalize Understanding OT Short Term Goals Short Term Goals Time Frame: January 07, 2020 Upper body dressin Lower body dressin OT Ore Roaster Goals Correction Goals Time Frame: January 14, 2020 Eating (QC): 6 Oral Hygiene (QC): 6 Toileting Hygiene (QC): 6 Shower/Bathe Self (QC): 4 Upper Body Dressing (QC): 6 Lower Body Dressing (QC): 6 On/Off Footwear (QC): 6 1=Demonstrate adherence to instructed precautions during ADL tasks. 2=Patient will verbalize/demonstrate understanding of assistive devices/modifications for ADL. 3=Patient will improve strength/tolerance for activity to enable patient to perform ADL's. OT Education/Plan Problem List/Assessment Assessment: Decreased Activ Tolerance, Decreased UE Strength, Impaired I ADL's, Impaired Self-Care Skills Discharge Recommendations Plan/Recommendations: Continue POC Treatment Plan/Plan of Care Patient would benefit from OT for education, treatment and training to promote independence in ADL's, mobility, safety and/or upper extremity function for ADL's. Plan of Care: ADL Retraining, Functional Mobility, Group Exercise/Act as Ind, Orthotic Fitting/Training, UE Funct Exercise/Act Treatment Duration: January 14, 2020 Frequency: At least 5 of 7 days/Wk (IRF) Estimated Hrs Per Day: 1.5 hours per day Agreement: Yes Rehab Potential: Fair Time/GCodes Start Time: 11:38 Stop Time: 11:53 Total Time Billed (hr/min): 15 Billed Treatment Time 1, EX LUPE MORFIN OT January 04, 2020 11:58
--- NOTE | 2020-01-04 13:32 | Physical Therapy Daily Note ---
PT Daily Note-Current Subjective Pt. up in chair, states he needs to go to bathroom and then wants to go to bed . C/o he has pain at 6/10 mostly in his UEs and attributes this not only to his injuries but also to this constant rainy weather. Pain Numeric Pain Scale: 6 Location: Left Location Body Site: Arm Pain Description: Ache Mental Status Patient Orientation: Person, Place, Time, Situation Attachments: Oxygen (2L), Other-See Comments (sling, LUE ) Transfers SCALE: Activities may be completed with or without assistive devices. 9-Idzsesutiq-srkrkaw completes the activity by him/herself with no assistance from a helper. 5-Set-up or Clean-up Assistance-helper sets up or cleans up; patient completes activity. [employer] assists only prior to or following the activity. 4-Supervision or Touching Assistance-helper provides verbal cues and/or touching/steadying and/or contact guard assistance as patient completes activity. Assistance may be provided throughout the activity or intermittently. 3-Partial/Moderate Assistance-helper does LESS THAN HALF the effort. [employer] lifts, holds or supports trunk or limbs, but provides less than half the effort. 2-Substantial/Maximal Assistance-helper does MORE THAN HALF the effort. [employer] lifts or holds trunk or limbs and provides more than half the effort. 5-Icdgxdxbm-pixpfs does ALL the effort. Patient does none of the effort to complete the activity. Or, the assistance of 2 or more helpers is required for the patient to complete the activity. If activity was not attempted, code reason: 7-Patient Refused. 9-Not Applicable-not attempted and the patient did not perform the activity before the current illness, exacerbation or injury. 10-Not Attempted due to Environmental Limitations-(lack of equipment, weather restraints, etc.). 88-Not Attempted due to Medical Conditions or Safety Concerns. sit to stand as well as sit to sup all mod I Weight Bearing sling left arm Gait Training Does the Patient Walk?: Yes Gait Assistive Device: None 75ftx2 no AD, extended O2 tubing and connectors were obtained and gait about room with long O2 tubing was initiated so pt. can mange in to bathroom without disconnection. Pt. shares he has no regard for the O2 and doesnt even think he needs it. Pt. demonstrates he is able to stand at toilet to urinate with good balance Exercises Supine Ex: Bridging, Rolling, Heel Slides, Scooting, Straight leg raise, Hip abd/add Supine Reps: 10 Treatments pt. in bed after Rx with L arm positioned on pillow for comfort and support , carbajal at hand and alarm insitu on bed Assessment Current Status: Good Progress pain limits funct to a degree this aftn, PT Short Term Goals Short Term Goals Time Frame: January 07, 2020 Roll Left & Right: 6 Sit to lyin Lying to sitting on side of be: 6 Sit to stand: 4 Chair/con-bv-hrgfd transfer: 4 Walk 10 feet: 4 Walk 50 feet with two turns: 4 Walk 150 feet: 4 PT Group Home Goals Architecture Faculty Member Goals PT Group Home Goals Time Frame: Jan 21, 2020 Roll Left & Right (QC): 6 Sit to Lying (QC): 6 Lying-Sitting on Side/Bed(QC): 6 Sit to Stand (QC): 6 Chair/Joa-rb-Cneuz Xfer(QC): 5 Toilet Transfer (QC): 5 Car Transfer (QC): 5 Does the Patient Walk: Yes Walk 10 feet (QC): 5 Walk 50ft with 2 Turns (QC): 5 Walk 150 ft (QC): 5 Walking 10ft on Uneven Surface: 5 1 Step (curb) (QC): 4 4 Steps (QC): 4 12 Steps (QC): 4 Picking up an Object (QC): 5 Wheel 50 feet with 2 turns (QC: 9 Wheel 150 feet: 9 PT Plan Treatment/Plan Treatment Plan: Continue Plan of Care Treatment Plan: Education, Functional Activity Latosha, Functional Strength, Group Therapy, Gait, Safety, Therapeutic Exercise, Transfers Treatment Duration: Jan 21, 2020 Frequency: At least 5 of 7 days/Wk (IRF) Estimated Hrs Per Day: 1.5 hours per day Patient and/or Family Agrees t: Yes Safety Risks/Education Patient Education: Gait Training, Transfer Techniques, Correct Positioning, Disease Process, Safety Issues Teaching Recipient: Patient Teaching Methods: Demonstration, Discussion Response to Teaching: Verbalize Understanding, Return Demonstration, Reinforcement Needed Time/GCodes Time In: 1300 Time Out: 1330 Total Billed Treatment Time: 30 Total Billed Treatment 1,GT10m,FA20m LINDEN CORONADO [employer]PER[employer] January 04, 2020 13:32
[2020-01-04] MEDS: ENOXAPARIN 40 MG/0.4 ML (LOVENOX) SYR SC SCH (14:17)
[2020-01-04 17:59] VITALS: BP 153/74
[2020-01-04] MEDS: MELATONIN 3 MG TABLET PO PRN (21:25)
[2020-01-05] MEDS: guaiFENesin/CODEINE (ROBITUSSIN AC) 10ML UDC PO PRN (01:13)
[2020-01-05] MEDS: RT-ALBUTEROL/IPRATROPIUM 3 ML (DUONEB) VIAL INH SCH ×6 (01:23→22:20)
[2020-01-05 06:00] VITALS: BP 120/69
[2020-01-05 08:07] VITALS: BP 120/79
[2020-01-05] MEDS: SENNA W/DOCUSATE (SENOKOT S) TABLET PO SCH ×2 (08:09→20:46)
[2020-01-05] MEDS: LORATADINE (CLARITIN) 10 MG TAB PO SCH (08:09)
[2020-01-05] MEDS: MONTELUKAST 10 MG (SINGULAIR) TAB PO SCH (08:09)
[2020-01-05] MEDS: metFORMIN XR 500 MG (GLUCOPHAGE XR) TAB PO SCH (08:09)
[2020-01-05] MEDS: amLODIPine 10 MG (NORVASC) TAB PO SCH (08:09)
[2020-01-05] MEDS: ASPIRIN E.C. 81 MG (ECOTRIN) TAB PO SCH (08:09)
[2020-01-05] MEDS: DOCUSATE SODIUM 100 MG (COLACE) CAP PO SCH ×2 (08:09→20:46)
[2020-01-05] MEDS: polyethylene glycoL POWDER 17 GM (MIRALAX) PACK PO SCH ×2 (08:10→20:47)
--- NOTE | 2020-01-05 12:45 | Physical Therapy Daily Note ---
PT Daily Note-Current Subjective Pt sitting in recliner with L UE up on pillow upon arrival. Pt agrees to PT before lunch arrives. Pain Numeric Pain Scale: 3 Location Body Site: Arm Pain Description: Ache Mental Status Patient Orientation: Person, Place Attachments: Other-See Comments (Sling for L UE) Transfers SCALE: Activities may be completed with or without assistive devices. 7-Txzmamkyug-qepralu completes the activity by him/herself with no assistance from a helper. 5-Set-up or Clean-up Assistance-helper sets up or cleans up; patient completes activity. [employer] assists only prior to or following the activity. 4-Supervision or Touching Assistance-helper provides verbal cues and/or touching/steadying and/or contact guard assistance as patient completes activity. Assistance may be provided throughout the activity or intermittently. 3-Partial/Moderate Assistance-helper does LESS THAN HALF the effort. [employer] lifts, holds or supports trunk or limbs, but provides less than half the effort. 2-Substantial/Maximal Assistance-helper does MORE THAN HALF the effort. [employer] lifts or holds trunk or limbs and provides more than half the effort. 3-Xmzctsoxq-baqwac does ALL the effort. Patient does none of the effort to complete the activity. Or, the assistance of 2 or more helpers is required for the patient to complete the activity. If activity was not attempted, code reason: 7-Patient Refused. 9-Not Applicable-not attempted and the patient did not perform the activity before the current illness, exacerbation or injury. 10-Not Attempted due to Environmental Limitations-(lack of equipment, weather restraints, etc.). 88-Not Attempted due to Medical Conditions or Safety Concerns. Weight Bearing sling left arm Exercises Seated Therapy Exercises: Ankle pumps, Long arc quads, Hip flexion, Kicking activity, Glut set Seated Reps: 15 Treatments Pt declines needing to use restroom. Pt completes Seated Ex at recliner. Pt takes RB as needed. Pt resting at end of Rx, awaiting lunch. Pt has all needs met, call light in hand. Assessment Current Status: Fair Progress Pt needs redirection on sequencing at times during Rx. PT Short Term Goals Short Term Goals Time Frame: January 07, 2020 Roll Left & Right: 6 Sit to lyin Lying to sitting on side of be: 6 Sit to stand: 4 Chair/laj-dl-njenk transfer: 4 Walk 10 feet: 4 Walk 50 feet with two turns: 4 Walk 150 feet: 4 PT Chcf Goals Chcf Goals PT Chcf Goals Time Frame: Jan 21, 2020 Roll Left & Right (QC): 6 Sit to Lying (QC): 6 Lying-Sitting on Side/Bed(QC): 6 Sit to Stand (QC): 6 Chair/Siy-vp-Pzake Xfer(QC): 5 Toilet Transfer (QC): 5 Car Transfer (QC): 5 Does the Patient Walk: Yes Walk 10 feet (QC): 5 Walk 50ft with 2 Turns (QC): 5 Walk 150 ft (QC): 5 Walking 10ft on Uneven Surface: 5 1 Step (curb) (QC): 4 4 Steps (QC): 4 12 Steps (QC): 4 Picking up an Object (QC): 5 Wheel 50 feet with 2 turns (QC: 9 Wheel 150 feet: 9 PT Plan Problem List Problem List: Activity Tolerance, Functional Strength, Safety Treatment/Plan Treatment Plan: Continue Plan of Care Treatment Plan: Education, Functional Activity Latosha, Functional Strength, Group Therapy, Gait, Safety, Therapeutic Exercise, Transfers Treatment Duration: Jan 21, 2020 Frequency: At least 5 of 7 days/Wk (IRF) Estimated Hrs Per Day: 1.5 hours per day Patient and/or Family Agrees t: Yes Safety Risks/Education Patient Education: Correct Positioning, Safety Issues Teaching Recipient: Patient Teaching Methods: Discussion Response to Teaching: Reinforcement Needed Time/GCodes Time In: 1155 Time Out: 1210 Total Billed Treatment Time: 15 Total Billed Treatment 1, EX (15m) JUAN MORA PTA January 05, 2020 12:45
--- NOTE | 2020-01-05 13:41 | PM&R Progress Note ---
Subjective HPI/CC On Admission Date Seen by Provider: January 05, 2020 Time Seen by Provider: 13:30 Subjective/Events-last exam Cough is still present but appears chronic but diminished breath sounds so will start steroid again [place] [facility] [place] Advair and Singulair is maintained along with breathing treatments Refuses to stop smoking Oxygen is a little bit low which he does have COPD due to continued smoking. RT will place him on O2 for now Does not want to go home on Oxygen but on 3L/min now Conferred with RN Reviewed therapy notes Checked meds and labs Review of Systems General: Fatigue Pulmonary: Dyspnea, Cough Objective Exam Vital Signs Vital Signs Date Time Temp Pulse Resp B/P (MAP) Pulse Ox O2 Delivery O2 Flow Rate FiO2 01/05/20 18:20 37.2 76 20 133/74 (93) 93 Nasal Cannula 3.00 Capillary Refill : Less Than 3 SecondsLess Than 3 Seconds General Appearance: No Apparent Distress, WD/WN, Chronically ill HEENT: Pharynx Normal, Other (left eyelid edematous with bruising) Neck: Full Range of Motion, Normal Inspection, Non Tender, Supple, Carotid Bruit Respiratory: Chest Non Tender, No Accessory Muscle Use, No Respiratory Distress, Decreased Breath Sounds, Rales, Wheezing Cardiovascular: Regular Rate, Rhythm, No Edema, No Gallop, No JVD, No Murmur, Normal Peripheral Pulses Gastrointestinal: Normal Bowel Sounds, No Organomegaly, No Pulsatile Mass, Non Tender, Soft Back: Normal Inspection, No CVA Tenderness, No Vertebral Tenderness Extremity: Normal Capillary Refill, Normal Inspection, Normal Range of Motion (except left arm in sling), Non Tender, No Calf Tenderness, No Pedal Edema Neurologic/Psychiatric: Alert, Oriented x3, No Motor/Sensory Deficits (pre- existing weakness left extremities from brain surgery hx), Normal 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 FIM Transfers Therapy Code Descriptions/Definitions Functional [place] Measure: 0=Not Assessed/NA 4=Minimal Assistance 1=Total Assistance 5=Supervision or Setup 2=Maximal Assistance 6=Modified [place] 3=Moderate Assistance 7=Complete IndependenceSCALE: Activities may be completed with or without assistive devices. 1-Yphwyefaba-zujisea completes the activity by him/herself with no assistance fr om a helper. 5-Set-up or Clean-up Assistance-helper sets up or cleans up; patient completes activity. [place] assists only prior to or following the activity. 4-Supervision or Touching Assistance-helper provides verbal cues and/or touching/steadying and/or contact guard assistance as patient completes activity. Assistance may be provided throughout the activity or intermittently. 3-Partial/Moderate Assistance-helper does LESS THAN HALF the effort. [place] lifts, holds or supports trunk or limbs, but provides less than half the effort. 2-Substantial/Maximal Assistance-helper does MORE THAN HALF the effort. [place] lifts or holds trunk or limbs and provides more than half the effort. 8-Qcpuoydcm-oaqtmn does ALL the effort. Patient does none of the effort to complete the activity. Or, the assistance of 2 or more helpers is required for the patient to complete the activity. If activity was not attempted, code reason: 7-Patient Refused. 9-Not Applicable-not attempted and the patient did not perform the activity before the current illness, exacerbation or injury. 10-Not Attempted due to Environmental Limitations-(lack of equipment, weather restraints, etc.). 88-Not Attempted due to Medical Conditions or Safety Concerns. Roll Left to Right (QC): 6 Sit to Lying (QC): 6 Sit to Stand (QC): 6 Chair/Fjf-oj-Ukfxl Xfer(QC): 6 Car Transfer (QC): 4 Gait Training Does the Patient Walk?: Yes Distance: 400'x2 Walk 10 feet (QC): 5 Walk 50 ft with 2 Turns(QC): 5 Walk 150 ft (QC): 5 Walking 10ft/uneven surface-QC: 4 Gait Persons Needed: 1 Gait Assistive Device: None Wheelchair Training Does the Pt Use a Wheelchair?: No Wheel 50 ft with 2 turns (QC): 9 Wheel 150 ft (QC): 9 Stair Training #of Steps: 4 1 Step (curb) (QC): 3 4 Steps (QC): 3 12 Steps (QC): 88 Balance Picking up an Object (QC): 88 ADL-Treatment Eating (QC): 6 Oral Hygiene (QC): 7 Bathing Location: L Arm, L Upper Leg, R Upper Leg, L Lower Leg (including foot), R Lower Leg (including foot), Chest, Abdomen, Buttocks, Perineal Area Shower/Bathe Self (QC): 3 (min A for R UE and SBA in stance/ EOB during bathing task) Upper Body Dressing (QC): 3 (doffs loose shirt and sling with INDmin A for donning tighter shirt/ cues for completing L UE dressing first. ) Lower Body Dressing (QC): 4 (SBA while pt dons EOB/ stands to don over hips with increased time.) On/Off Footwear (QC): 6 (IND while EOB (shoes with adaptive laces)) Toileting Hygiene (QC): 4 (SBA urination standing at toilet) Toilet Transfer (QC): 4 (SUP during toileting in stance at toilet.) Assessment/Plan Assessment and Plan Assess & Plan/Chief Complaint Assessment: Severe fall Left hand shattered fracture Left facial hematoma COPD Wheezing Smoker HTN HLP DM OOC Cognitive deficit 05/21 [facility] Brain surgery at 34yo Plan: Pain control BM regimen Nebs Prednisone IRF protocol Fall prevention O2 for now Check labs and CXR tomorrow (1) Facial hematoma (2) Left hand fracture (3) History of brain surgery (4) Cognitive deficits (5) COPD (chronic obstructive pulmonary disease) (6) Wheezing (7) Smoker (8) Diabetes (9) Hypertension (10) Hyperlipemia FAUSTINO GAITAN DO January 05, 2020 13:41
[2020-01-05] MEDS: predniSONE 20 MG TAB PO SCH (13:49)
[2020-01-05] MEDS: ENOXAPARIN 40 MG/0.4 ML (LOVENOX) SYR SC SCH (13:50)
--- NOTE | 2020-01-05 14:38 | NUR ---
DR. GAITAN HERE AND INFORMED OF PERSISTENT, HACKING COUGH AND NEED FOR O2 AT 3L.
[2020-01-05] MEDS: BENZONATATE 100 MG (TESSALON) CAPSULE PO SCH ×2 (14:48→20:46)
[2020-01-05 18:20] VITALS: BP 133/74
[2020-01-05] MEDS: ADVAIR DISKUS 250/50 IH SCH (22:33)
[2020-01-06] MEDS: RT-ALBUTEROL/IPRATROPIUM 3 ML (DUONEB) VIAL INH SCH ×6 (02:14→21:45)
[2020-01-06 05:05] VITALS: BP 147/87
[2020-01-06 05:28] LABS: BASOPHILS % (AUTO) 0 % (0-10); EOSINOPHILS % (AUTO) 0 % (0-10); HEMATOCRIT 40 % (40-54); HEMOGLOBIN 13.3 G/DL (13.3-17.7); LYMPHOCYTES # (AUTO) 2.1 X 10^3 (1.0-4.0); LYMPHOCYTES % (AUTO) 21 % (12-44); MEAN CORPUSCULAR HEMOGLOBIN 27 PG (25-34); MEAN CORPUSCULAR HGB CONC 33 G/DL (32-36); MEAN CORPUSCULAR VOLUME 83 FL (80-99); MEAN PLATELET VOLUME 9.5 FL (7.4-10.4); MONOCYTES # (AUTO) 0.7 X 10^3 (0.0-1.0); MONOCYTES % (AUTO) 7 % (0-12); NEUTROPHILS # (AUTO) 7.1 X 10^3 (1.8-7.8); NEUTROPHILS % (AUTO) 71 % (42-75); PLATELET COUNT 247 10^3/uL (130-400); RED CELL DISTRIBUTION WIDTH 14.4 % (10.0-14.5); WHITE BLOOD COUNT 9.9 10^3/uL (4.3-11.0)
[2020-01-06 05:45] LABS: ALANINE AMINOTRANSFERASE 23 U/L (0-55); ALBUMIN 3.7 GM/DL (3.2-4.5); ALKALINE PHOSPHATASE 49 U/L (40-136); BILIRUBIN,TOTAL 0.6 MG/DL (0.1-1.0); BUN/CREATININE RATIO 25; CALCIUM 8.8 MG/DL (8.5-10.1); CARBON DIOXIDE 20 MMOL/L (21-32); CHLORIDE 105 MMOL/L (98-107); CREATININE SERUM 1.08 MG/DL (0.60-1.30); GFR ESTIMATED > 60; GLUCOSE 129 MG/DL (70-105); POTASSIUM 4.7 MMOL/L (3.6-5.0); SODIUM 137 MMOL/L (135-145); TOTAL PROTEIN 7.2 GM/DL (6.4-8.2)
[2020-01-06] MEDS: predniSONE 20 MG TAB PO SCH (06:28)
[2020-01-06] MEDS: ADVAIR DISKUS 250/50 IH SCH ×2 (06:33→18:43)
[2020-01-06] MEDS: amLODIPine 10 MG (NORVASC) TAB PO SCH (08:33)
[2020-01-06] MEDS: ASPIRIN E.C. 81 MG (ECOTRIN) TAB PO SCH (08:33)
[2020-01-06] MEDS: polyethylene glycoL POWDER 17 GM (MIRALAX) PACK PO SCH ×2 (08:34→20:53)
[2020-01-06] MEDS: BENZONATATE 100 MG (TESSALON) CAPSULE PO SCH ×3 (08:34→20:50)
[2020-01-06] MEDS: MONTELUKAST 10 MG (SINGULAIR) TAB PO SCH (08:34)
[2020-01-06] MEDS: metFORMIN XR 500 MG (GLUCOPHAGE XR) TAB PO SCH (08:34)
[2020-01-06] MEDS: LORATADINE (CLARITIN) 10 MG TAB PO SCH (08:34)
[2020-01-06] MEDS: SENNA W/DOCUSATE (SENOKOT S) TABLET PO SCH ×2 (08:34→20:49)
[2020-01-06] MEDS: DOCUSATE SODIUM 100 MG (COLACE) CAP PO SCH ×2 (08:34→20:49)
--- NOTE | 2020-01-06 09:47 | Diagnostic Imaging Report ---
INDICATION: Hypoxia. TECHNIQUE: Two view chest 9:19 AM CORRELATION STUDY: 01/14/2015 FINDINGS: The heart size, mediastinal configuration and pulmonary vasculature are within normal limits. Density lateral right mid lung field is stable slightly smaller. Prior traumatic changes of the right clavicle and right superior rib fractures. IMPRESSION: 1. Stable chest demonstrates no acute abnormality. Dictated by: Dictated on workstation # [id number]
--- NOTE | 2020-01-06 11:33 | PM&R Progress Note ---
Subjective HPI/CC On Admission Date Seen by Provider: January 06, 2020 Time Seen by Provider: 11:30 Subjective/Events-last exam Cough is still present but appears improved Advair and Singulair is maintained along with breathing treatments Refuses to stop smoking Oxygen is a little bit low which he does have COPD due to continued smoking. RT will place him on O2 for now Does not want to go home on Oxygen but on 3L/min now and he is accepting the fact he may need to go home with O2 now Conferred with RN Reviewed therapy notes Checked meds and labs Review of Systems General: Fatigue Pulmonary: Dyspnea Objective Exam Vital Signs Vital Signs Date Time Temp Pulse Resp B/P (MAP) Pulse Ox O2 Delivery O2 Flow Rate FiO2 01/06/20 13:31 90 Nasal Cannula 3.00 01/06/20 05:05 36.4 69 18 147/87 (107) Capillary Refill : Less Than 3 SecondsLess Than 3 Seconds General Appearance: No Apparent Distress, WD/WN, Chronically ill HEENT: Pharynx Normal, Other (left eyelid edematous with bruising) Neck: Full Range of Motion, Normal Inspection, Non Tender, Supple, Carotid Bruit Respiratory: Chest Non Tender, No Accessory Muscle Use, No Respiratory Distress, Decreased Breath Sounds, Rales, Wheezing Cardiovascular: Regular Rate, Rhythm, No Edema, No Gallop, No JVD, No Murmur, Normal Peripheral Pulses Gastrointestinal: Normal Bowel Sounds, No Organomegaly, No Pulsatile Mass, Non Tender, Soft Back: Normal Inspection, No CVA Tenderness, No Vertebral Tenderness Extremity: Normal Capillary Refill, Normal Inspection, Normal Range of Motion (except left arm in sling), Non Tender, No Calf Tenderness, No Pedal Edema Neurologic/Psychiatric: Alert, Oriented x3, No Motor/Sensory Deficits (pre-exi sting weakness left extremities from brain surgery hx), Normal Mood/Affect, lobbyist II-XII Norm as Tested, Abnormal Gait Skin: Normal Color, Warm/Dry Lymphatic: No Adenopathy Results/Procedures Lab Laboratory Tests 01/06/20 05:13 Patient resulted labs reviewed. FIM Transfers Therapy Code Descriptions/Definitions Functional [place] Measure: 0=Not Assessed/NA 4=Minimal Assistance 1=Total Assistance 5=Supervision or Setup 2=Maximal Assistance 6=Modified [place] 3=Moderate Assistance 7=Complete IndependenceSCALE: Activities may be completed with or without assistive devices. 0-Utupqrztji-hobhsea completes the activity by him/herself with no assistance from a helper. 5-Set-up or Clean-up Assistance-helper sets up or cleans up; patient completes activity. [place] assists only prior to or following the activity. 4-Supervision or Touching Assistance-helper provides verbal cues and/or touching/steadying and/or contact guard assistance as patient completes activity. Assistance may be provided throughout the activity or intermittently. 3-Partial/Moderate Assistance-helper does LESS THAN HALF the effort. [place] lifts, holds or supports trunk or limbs, but provides less than half the effort. 2-Substantial/Maximal Assistance-helper does MORE THAN HALF the effort. [place] l ifts or holds trunk or limbs and provides more than half the effort. 1-Yrkzfywle-ryvwbt does ALL the effort. Patient does none of the effort to complete the activity. Or, the assistance of 2 or more helpers is required for the patient to complete the activity. If activity was not attempted, code reason: 7-Patient Refused. 9-Not Applicable-not attempted and the patient did not perform the activity before the current illness, exacerbation or injury. 10-Not Attempted due to Environmental Limitations-(lack of equipment, weather restraints, etc.). 88-Not Attempted due to Medical Conditions or Safety Concerns. Roll Left to Right (QC): 6 Sit to Lying (QC): 6 Sit to Stand (QC): 6 Chair/Oyt-jg-Ngido Xfer(QC): 6 Car Transfer (QC): 4 Gait Training Does the Patient Walk?: Yes Distance: 400'x2 Walk 10 feet (QC): 5 Walk 50 ft with 2 Turns(QC): 5 Walk 150 ft (QC): 5 Walking 10ft/uneven surface-QC: 4 Gait Persons Needed: 1 Gait Assistive Device: None Wheelchair Training Does the Pt Use a Wheelchair?: No Wheel 50 ft with 2 turns (QC): 9 Wheel 150 ft (QC): 9 Stair Training #of Steps: 4 1 Step (curb) (QC): 3 4 Steps (QC): 3 12 Steps (QC): 88 Balance Picking up an Object (QC): 88 ADL-Treatment Eating (QC): 6 Oral Hygiene (QC): 7 Bathing Location: L Arm, L Upper Leg, R Upper Leg, L Lower Leg (including chelsey t), R Lower Leg (including foot), Chest, Abdomen, Buttocks, Perineal Area Shower/Bathe Self (QC): 3 (min A for R UE and SBA in stance/ EOB during bathing task) Upper Body Dressing (QC): 3 (doffs loose shirt and sling with INDmin A for donning tighter shirt/ cues for completing L UE dressing first. ) Lower Body Dressing (QC): 4 (SBA while pt dons EOB/ stands to don over hips with increased time.) On/Off Footwear (QC): 6 (IND while EOB (shoes with adaptive laces)) Toileting Hygiene (QC): 4 (SBA urination standing at toilet) Toilet Transfer (QC): 4 (SUP during toileting in stance at toilet.) Assessment/Plan Assessment and Plan Assess & Plan/Chief Complaint Assessment: Severe fall Left hand shattered fracture Left facial hematoma COPD Wheezing Smoker HTN HLP DM OOC Cognitive deficit 05/21 [facility] Brain surgery at 34yo Plan: Pain control BM regimen Nebs Prednisone IRF protocol Fall prevention O2 for now Check labs and CXR tomorrow (1) Facial hematoma (2) Left hand fracture (3) History of brain surgery (4) Cognitive deficits (5) COPD (chronic obstructive pulmonary disease) (6) Wheezing (7) Smoker (8) Diabetes (9) Hypertension (10) Hyperlipemia FAUSTINO GAITAN DO January 06, 2020 11:33
[2020-01-06] MEDS: ENOXAPARIN 40 MG/0.4 ML (LOVENOX) SYR SC SCH (14:41)
[2020-01-06] MEDS ORDERED: GUAI473L PO (16:20)
[2020-01-06] MEDS ORDERED: PRED10TA22 PO (16:20)
[2020-01-06] MEDS ORDERED: HYDR-34 PO (16:20)
[2020-01-06] MEDS ORDERED: BENZ100C18 PO (16:20)
[2020-01-06] MEDS ORDERED: LORA10TA7 PO (16:20)
[2020-01-06] MEDS ORDERED: SENN-20 PO (16:20)
[2020-01-06] MEDS ORDERED: MONT10TA26 PO (16:20)
[2020-01-06] MEDS ORDERED: IPRA3AMP31 INH (16:20)
[2020-01-06 17:45] VITALS: BP 162/68
[2020-01-07] MEDS: RT-ALBUTEROL/IPRATROPIUM 3 ML (DUONEB) VIAL INH SCH ×6 (02:35→21:46)
[2020-01-07 05:49] VITALS: BP 135/77
[2020-01-07] MEDS: ADVAIR DISKUS 250/50 IH SCH ×2 (06:13→18:08)
[2020-01-07] MEDS: predniSONE 20 MG TAB PO SCH (06:23)
[2020-01-07] MEDS: polyethylene glycoL POWDER 17 GM (MIRALAX) PACK PO SCH ×2 (08:24→21:29)
[2020-01-07] MEDS: LORATADINE (CLARITIN) 10 MG TAB PO SCH (08:47)
[2020-01-07] MEDS: amLODIPine 10 MG (NORVASC) TAB PO SCH (08:47)
[2020-01-07] MEDS: ASPIRIN E.C. 81 MG (ECOTRIN) TAB PO SCH (08:47)
[2020-01-07] MEDS: BENZONATATE 100 MG (TESSALON) CAPSULE PO SCH ×3 (08:47→21:29)
[2020-01-07] MEDS: MONTELUKAST 10 MG (SINGULAIR) TAB PO SCH (08:47)
[2020-01-07] MEDS: SENNA W/DOCUSATE (SENOKOT S) TABLET PO SCH ×2 (08:47→21:29)
[2020-01-07] MEDS: DOCUSATE SODIUM 100 MG (COLACE) CAP PO SCH ×2 (08:47→21:28)
[2020-01-07] MEDS: metFORMIN XR 500 MG (GLUCOPHAGE XR) TAB PO SCH (08:47)
--- NOTE | 2020-01-07 09:09 | Physical Therapy Daily Note ---
PT Daily Note-Current Subjective Pt. sitting up smiling, agrees to Rx. States he is going home tomorrow. Teases and jokes through Rx. Pain Location: No Pain Reported Mental Status Patient Orientation: Person, Place, Time, Situation Attachments: Oxygen (3L), Other-See Comments (sling LUE) Transfers SCALE: Activities may be completed with or without assistive devices. 7-Daozmizhlw-igtnyok completes the activity by him/herself with no assistance from a helper. 5-Set-up or Clean-up Assistance-helper sets up or cleans up; patient completes activity. [place] assists only prior to or following the activity. 4-Supervision or Touching Assistance-helper provides verbal cues and/or touching/steadying and/or contact guard assistance as patient completes activity. Assistance may be provided throughout the activity or intermittently. 3-Partial/Moderate Assistance-helper does LESS THAN HALF the effort. [place] lifts, holds or supports trunk or limbs, but provides less than half the effort. 2-Substantial/Maximal Assistance-helper does MORE THAN HALF the effort. [place] lifts or holds trunk or limbs and provides more than half the effort. 0-Gtdokkoqf-djnmon does ALL the effort. Patient does none of the effort to complete the activity. Or, the assistance of 2 or more helpers is required for the patient to complete the activity. If activity was not attempted, code reason: 7-Patient Refused. 9-Not Applicable-not attempted and the patient did not perform the activity befo re the current illness, exacerbation or injury. 10-Not Attempted due to Environmental Limitations-(lack of equipment, weather re straints, etc.). 88-Not Attempted due to Medical Conditions or Safety Concerns. Roll Left & Right (QC): 6 Sit to Lying (QC): 6 Lying to Sitting/Side of Bed(Q: 6 Sit to Stand (QC): 6 Chair/Tfb-ti-Furew Xfer(QC): 6 Toilet Transfer (QC): 6 Car Transfer (QC): 6 Weight Bearing sling left arm Gait Training Does the Patient Walk?: Yes Walk 10 feet (QC): 6 Walk 50 ft with 2 Turns(QC): 6 Walk 150 ft (QC): 6 Walking 10ft/uneven surface-QC: 6 Gait Persons Needed: 0 Gait Assistive Device: None Pt. with occas staggered gait but no LOB, does not use device, needs assist for O2 tubing and portable tank. Pt. states he will not use O2 at home. O2 sats during Rx this date steady at 95% with exercise Stair Training Stair Training: Handrails/: 1 handrail #of Steps: 4 1 Step (curb) (QC): 5 4 Steps (QC): 5 12 Steps (QC): 88 Stairs: Pattern: Step to very careful and needs to see step to advance Balance Picking up an Object (QC): 5 Exercises Supine Ex: Rolling, Heel Slides, Straight leg raise, Hip abd/add Supine Reps: 12 NuStep Minutes: 10 NuStep Workload: 4 Assessment Current Status: Good Progress PT Short Term Goals Short Term Goals Time Frame: January 07, 2020 Roll Left & Right: 6 Sit to lyin Lying to sitting on side of be: 6 Sit to stand: 4 Chair/zqt-xo-xauhi transfer: 4 Walk 10 feet: 4 Walk 50 feet with two turns: 4 Walk 150 feet: 4 PT Senior Care Goals Quantitative Software Engineer Goals PT Quantitative Software Engineer Goals Time Frame: Jan 21, 2020 Roll Left & Right (QC): 6 Sit to Lying (QC): 6 Lying-Sitting on Side/Bed(QC): 6 Sit to Stand (QC): 6 Chair/Vlb-jb-Emjhp Xfer(QC): 5 Toilet Transfer (QC): 5 Car Transfer (QC): 5 Does the Patient Walk: Yes Walk 10 feet (QC): 5 Walk 50ft with 2 Turns (QC): 5 Walk 150 ft (QC): 5 Walking 10ft on Uneven Surface: 5 1 Step (curb) (QC): 4 4 Steps (QC): 4 12 Steps (QC): 4 Picking up an Object (QC): 5 Wheel 50 feet with 2 turns (QC: 9 Wheel 150 feet: 9 PT Plan Treatment/Plan Treatment Plan: Continue Plan of Care Treatment Plan: Education, Functional Activity [place], Functional Strength, Group Therapy, Gait, Safety, Therapeutic Exercise, Transfers Treatment Duration: Jan 21, 2020 Frequency: At least 5 of 7 days/Wk (IRF) Estimated Hrs Per Day: 1.5 hours per day Patient and/or Family Agrees t: Yes Safety Risks/Education Patient Education: Gait Training, Transfer Techniques, Steps, Correct Positioning, Disease Process, Safety Issues Teaching Recipient: Patient Teaching Methods: Demonstration, Discussion Response to Teaching: Verbalize Understanding, Return Demonstration Time/GCodes Time In: 815 Time Out: 915 Total Billed Treatment Time: 60 Total Billed Treatment 1,FA30m,EX15m,GT15m LINDEN CORONADO PLANT SENIOR MANAGER January 07, 2020 09:09
--- NOTE | 2020-01-07 09:24 | PM&R Progress Note ---
Subjective HPI/CC On Admission Date Seen by Provider: January 07, 2020 Time Seen by Provider: 09:30 Subjective/Events-last exam Home O2 evaluation will be completed Overall doing pretty well Cough is still present but improved Titrating down steroids Judy Mckinney with Codeine has been helpful Overall feels pretty good Conferred with RN Reviewed therapy notes Checked meds and labs Review of Systems General: Fatigue Pulmonary: Cough Musculoskeletal: arm pain Objective Exam Vital Signs Vital Signs Date Time Temp Pulse Resp B/P (MAP) Pulse Ox O2 Delivery O2 Flow Rate FiO2 01/08/20 05:18 36.2 63 18 144/74 (97) 94 Nasal Cannula 3.00 Capillary Refill : Less Than 3 SecondsLess Than 3 Seconds General Appearance: No Apparent Distress, WD/WN, Chronically ill HEENT: Pharynx Normal, Other (left eyelid edematous with bruising) Neck: Full Range of Motion, Normal Inspection, Non Tender, Supple, Carotid Bruit Respiratory: Chest Non Tender, No Accessory Muscle Use, No Respiratory Distress, Decreased Breath Sounds, Rales, Wheezing Cardiovascular: Regular Rate, Rhythm, No Edema, No Gallop, No JVD, No Murmur, Normal Peripheral Pulses Gastrointestinal: Normal Bowel Sounds, No Organomegaly, No Pulsatile Mass, Non Tender, Soft Back: Normal Inspection, No CVA Tenderness, No Vertebral Tenderness Extremity: Normal Capillary Refill, Normal Inspection, Normal Range of Motion (except left arm in sling), Non Tender, No Calf Tenderness, No Pedal Edema Neurologic/Psychiatric: Alert, Oriented x3, No Motor/Sensory Deficits (pre- existing weakness left extremities from brain surgery hx), Normal Mood/Affect, equine dentist II-XII Norm as 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 FIM Transfers Therapy Code Descriptions/Definitions Functional [place] Measure: 0=Not Assessed/NA 4=Minimal Assistance 1=Total Assistance 5=Supervision or Setup 2=Maximal Assistance 6=Modified [place] 3=Moderate Assistance 7=Complete IndependenceSCALE: Activities may be completed with or without assistive devices. 2-Qqbbzpylbo-phjfhlj completes the activity by him/herself with no assistance from a helper. 5-Set-up or Clean-up Assistance-helper sets up or cleans up; patient completes activity. [place] assists only prior to or following the activity. 4-Supervision or Touching Assistance-helper provides verbal cues and/or touching/steadying and/or contact guard assistance as patient completes activity. Assistance may be provided throughout the activity or intermittently. 3-Partial/Moderate Assistance-helper does LESS THAN HALF the effort. [place] lifts, holds or supports trunk or limbs, but provides less than half the effort. 2-Substantial/Maximal Assistance-helper does MORE THAN HALF the effort. [place] lifts or holds trunk or limbs and provides more than half the effort. 6-Wnnsrkohl-hmvbsz does ALL the effort. Patient does none of the effort to complete the activity. Or, the assistance of 2 or more helpers is required for the patient to complete the activity. If activity was not attempted, code reason: 7-Patient Refused. 9-Not Applicable-not attempted and the patient did not perform the activity before the current illness, exacerbation or injury. 10-Not Attempted due to Environmental Limitations-(lack of equipment, weather restraints, etc.). 88-Not Attempted due to Medical Conditions or Safety Concerns. Roll Left to Right (QC): 6 Sit to Lying (QC): 6 Sit to Stand (QC): 6 Chair/Bks-pq-Srrmi Xfer(QC): 6 Car Transfer (QC): 6 Gait Training Does the Patient Walk?: Yes Distance: 400'x2 Walk 10 feet (QC): 6 Walk 50 ft with 2 Turns(QC): 6 Walk 150 ft (QC): 6 Walking 10ft/uneven surface-QC: 6 Gait Persons Needed: 0 Gait Assistive Device: None Wheelchair Training Does the Pt Use a Wheelchair?: No Wheel 50 ft with 2 turns (QC): 9 Wheel 150 ft (QC): 9 Stair Training Stair Training: Handrails/: 1 handrail #of Steps: 4 1 Step (curb) (QC): 5 4 Steps (QC): 5 12 Steps (QC): 88 Stairs: Pattern: Step to Balance Picking up an Object (QC): 5 ADL-Treatment Eating (QC): 6 Oral Hygiene (QC): 7 Bathing Location: L Arm, L Upper Leg, R Upper Leg, L Lower Leg (including foot), R Lower Leg (including foot), Chest, Abdomen, Buttocks, Perineal Area Shower/Bathe Self (QC): 3 (min A for R UE and SBA in stance/ EOB during bathing task) Upper Body Dressing (QC): 3 (doffs loose shirt and sling with INDmin A for donning tighter shirt/ cues for completing L UE dressing first. ) Lower Body Dressing (QC): 4 (SBA while pt dons EOB/ stands to don over hips with increased time.) On/Off Footwear (QC): 6 (IND while EOB (shoes with adaptive laces)) Toileting Hygiene (QC): 4 (SBA urination standing at toilet) Toilet Transfer (QC): 4 (SUP during toileting in stance at toilet.) Assessment/Plan Assessment and Plan Assess & Plan/Chief Complaint Assessment: Severe fall Left hand shattered fracture Left facial hematoma COPD Wheezing Smoker HTN HLP DM OOC Cognitive deficit 05/21 [facility] Brain surgery at 34yo Hypoxia Plan: Pain control BM regimen Nebs Prednisone IRF protocol Fall prevention O2 home evaluation (1) Facial hematoma (2) Left hand fracture (3) History of brain surgery (4) Cognitive deficits (5) COPD (chronic obstructive pulmonary disease) Qualifiers: Qualified Codes: J44.9 - Chronic obstructive pulmonary disease, unspecified (6) Wheezing (7) Smoker (8) Diabetes (9) Hypertension (10) Hyperlipemia FAUSTINO GAITAN DO January 07, 2020 09:24
[2020-01-07 10:06] VITALS: BP 135/77
--- NOTE | 2020-01-07 10:23 | NUR ---
HOME 02 QUALIFICATION. PT WALKED FOR 6 MINS. SP02 AT BEGINNING WAS 92 ON RA, WHILE SITTING. PT AMBULATED FOR 3MINS SP02 DECREASED TO 87. 2 LPM WAS APPLIED, SP02 RETURNED TO 90, THEN DIPPED BACK TO 88. FI02 INCREASED TO 3LPM. SP02 FOR THE NEXT 3 MINS REMAINED 94%/ NO ISSUES NOTED. PT HAD INFREQUENT LOOSE COUGH. HE NOW REQUIRES 3LPM NC AT HOME AT ALL TIMES Addendum: 01/07/20 at 1024 by MINOR ARIAS RT Amended: Links added.
--- NOTE | 2020-01-07 11:01 | Speech Therapy Daily Note ---
Speech Daily Progress Note Subjective Date Seen by Provider: January 07, 2020 Time Seen by Provider: 00:30 Patient was watching television following his PT when I entered his room. Objective Patient was given the SLUMS for progress note: score of 22/30, which is within the Mild Neurocognitive Disorder range of function, up from initial score of 9/30. Assessment Assessment Current Status: Good Progress Treatment Plan Discontinue ST, Goals Met Speech Short Term Goals Short Term Goals Short Term Goals 1) Patient will complete memory tasks as directed with 75% accuracy given mini mal cues. 2) Patient will complete sequencing tasks as directed with 75% accuracy given minimal cues. j3) Patient will complete following directional tasks as directed with 75% accuracy given minimal cues. Speech Sexer Goals Senior Care Goals Patient will improve his cognitive-communicative status so that he may require minimal assist and/or cues. Speech-Plan Patient/Family Goals Patient/Family Goals: Patient is scheduled to discharge to his apartment tomorrow. He will have family support near by for his needs. Treatment Plan Speech Therapy Treatment Plan: Discontinue ST, Goals Met Treatment Duration: January 16, 2020 Frequency: 5 times per week Estimated Hrs Per Day: .5 hour per day Rehab Potential: Fair Barriers to Learning: Patient's cognitive deficits, however they are noted to have significantly improved as a result of skilled therapy. Pt/Family Agrees to Plan: Yes Safety Risks/Education Teaching Recipient: Patient Teaching Methods: Demonstration, Discussion Response to Teaching: Verbalize Understanding, Return Demonstration Education Topics Provided: Continued safety upon his return home. Time Speech Therapy Time In: 10:00 Speech Therapy Time Out: 10:30 Total Billed Time: 30 Billed Treatment Time 1, SLTS No QUALITY CODES: EXPRESSION OF IDEAS/WANTS: 4 UNDERSTANDING VERBAL CONTENT: 4 BRIEF INTERVIEW MENTAL STATUS: YES REPETITION OF 3 WORDS: 3 TEMPORAL ORIENTATION: YEAR: CORRECT, MONTH: CORRECT, DAY: CORRECT RECALL SOCK: YES WITH CUE, COLOR: YES WITH CUE, BED: NO MEMOR/RECALL ABILITY: SEASON, THAT HE'S IN THE [facility] January 07, 2020 11:01
--- NOTE | 2020-01-07 13:13 | Physical Therapy Daily Note ---
PT Daily Note-Current Subjective Pt. up in chair. Requests to walk and do a few exercises Pain Location: No Pain Reported Mental Status Patient Orientation: Person, Place, Situation Attachments: Other-See Comments (leonor LUMaría) Transfers SCALE: Activities may be completed with or without assistive devices. 8-Vlkeqfepsb-typprdc completes the activity by him/herself with no assistance from a helper. 5-Set-up or Clean-up Assistance-helper sets up or cleans up; patient completes activity. [place] assists only prior to or following the activity. 4-Supervision or Touching Assistance-helper provides verbal cues and/or touching/steadying and/or contact guard assistance as patient completes activity. Assistance may be provided throughout the activity or intermittently. 3-Partial/Moderate Assistance-helper does LESS THAN HALF the effort. [place] lifts, holds or supports trunk or limbs, but provides less than half the effort. 2-Substantial/Maximal Assistance-helper does MORE THAN HALF the effort. [place] lifts or holds trunk or limbs and provides more than half the effort. 5-Cstjtjxhf-ngxldc does ALL the effort. Patient does none of the effort to complete the activity. Or, the assistance of 2 or more helpers is required for the patient to complete the activity. If activity was not attempted, code reason: 7-Patient Refused. 9-Not Applicable-not attempted and the patient did not perform the activity before the current illness, exacerbation or injury. 10-Not Attempted due to Environmental Limitations-(lack of equipment, weather restraints, etc.). 88-Not Attempted due to Medical Conditions or Safety Concerns. sit to stand and sit to sup to sit all Mod I Weight Bearing sling left arm Gait Training Does the Patient Walk?: Yes Gait Assistive Device: None gait with SBA for O2 3 L 200 ft, 100 ft no LOB, no SOB, Exercises Supine Ex: Bridging, Rolling, Heel Slides, Straight leg raise (with abd ) Supine Reps: 20 Seated Therapy Exercises: Hip flexion Seated Reps: 10 Assessment Current Status: Good Progress PT Short Term Goals Short Term Goals Time Frame: January 07, 2020 Roll Left & Right: 6 Sit to lyin Lying to sitting on side of be: 6 Sit to stand: 4 Chair/fra-sv-wuxfn transfer: 4 Walk 10 feet: 4 Walk 50 feet with two turns: 4 Walk 150 feet: 4 PT Halfway Goals Halfway Goals PT Automatic Vulcanizing Lead Operator Goals Time Frame: Jan 21, 2020 Roll Left & Right (QC): 6 Sit to Lying (QC): 6 Lying-Sitting on Side/Bed(QC): 6 Sit to Stand (QC): 6 Chair/Gvh-lw-Nvzqk Xfer(QC): 5 Toilet Transfer (QC): 5 Car Transfer (QC): 5 Does the Patient Walk: Yes Walk 10 feet (QC): 5 Walk 50ft with 2 Turns (QC): 5 Walk 150 ft (QC): 5 Walking 10ft on Uneven Surface: 5 1 Step (curb) (QC): 4 4 Steps (QC): 4 12 Steps (QC): 4 Picking up an Object (QC): 5 Wheel 50 feet with 2 turns (QC: 9 Wheel 150 feet: 9 PT Plan Treatment/Plan Treatment Plan: Continue Plan of Care Treatment Plan: Education, Functional Activity Latosha, Functional Strength, Group Therapy, Gait, Safety, Therapeutic Exercise, Transfers Treatment Duration: Jan 21, 2020 Frequency: At least 5 of 7 days/Wk (IRF) Estimated Hrs Per Day: 1.5 hours per day Patient and/or Family Agrees t: Yes Safety Risks/Education Patient Education: Gait Training, Transfer Techniques Time/GCodes Time In: 1255 Time Out: 1310 Total Billed Treatment Time: 15 Total Billed Treatment 1,EX15m LINDEN CORONADO NOZZLE CEMENT SPRAYER HELPER January 07, 2020 13:13
--- NOTE | 2020-01-07 13:59 | NUR ---
CM/SS CONCURRENT DOCUMENTATION and DISCHARGE PLANNING Patient will discharge home tomorrow as planned, he will require new home O2, 3L continuous. Updated POA-HC April and reviewed agencies in service area. April requested this DME be coordinated with [facility]. Will complete referral once orders are received. Portable to be delivered to patient room for transport home. Agency will be instructed to call April for home setup instructions since patient will be at her home initially. April plans to inquire to PCP Rita Talavera NP about smoking cessation supports. Automatic Paint Sprayer Operator and April agree that patient will require close observation with continuous O2 due to fall risk with tubing as well as the fact he is a heavy smoker. April also shared that patient has long-standing history of seeking cigarette butts on the ground and lighting those up. Apparently patient will go to the car wash and other places looking for discarded butts. April will be keeping patient at her home for a period of time for monitor/assist. She is picking patient up for discharge tomorrow at 1130. Updated physician due to timing of getting O2 ordered and delivered.
--- NOTE | 2020-01-07 14:20 | Occupational Ther Daily Note ---
OT Current Status-Daily Note Subjective Pt seen in recliner chair this afternoon. Pt states pain is "still there," agrees to bathing tasks and exercises. Mental Status/Objective Attachments: Oxygen (3L) ADL-Treatment Therapy Code Descriptions/Definitions Functional [place] Measure: 0=Not Assessed/NA 4=Minimal Assistance 1=Total Assistance 5=Supervision or Setup 2=Maximal Assistance 6=Modified [place] 3=Moderate Assistance 7=Complete IndependenceSCALE: Activities may be completed with or without assistive devices. 2-Bxizfbygqm-uutnfzr completes the activity by him/herself with no assistance from a helper. 5-Set-up or Clean-up Assistance-helper sets up or cleans up; patient completes activity. [place] assists only prior to or following the activity. 4-Supervision or Touching Assistance-helper provides verbal cues and/or touching/steadying and/or contact guard assistance as patient completes activity. Assistance may be provided throughout the activity or intermittently. 3-Partial/Moderate Assistance-helper does LESS THAN HALF the effort. [place] lifts, holds or supports trunk or limbs, but provides less than half the effort. 2-Substantial/Maximal Assistance-helper does MORE THAN HALF the effort. [place] lifts or holds trunk or limbs and provides more than half the effort. 9-Kxfoszavc-zuqaox does ALL the effort. Patient does none of the effort to complete the activity. Or, the assistance of 2 or more helpers is required for the patient to complete the activity. If activity was not attempted, code reason: 7-Patient Refused. 9-Not Applicable-not attempted and the patient did not perform the activity before the current illness, exacerbation or injury. 10-Not Attempted due to Environmental Limitations-(lack of equipment, weather restraints, etc.). 88-Not Attempted due to Medical Conditions or Safety Concerns. Eating (QC): 6 Oral Hygiene (QC): 6 (denies, though per clinical judgment pt is IND.) Bathing Location: L Arm, L Upper Leg, R Upper Leg, L Lower Leg (including foot), R Lower Leg (including foot), Chest, Abdomen, Buttocks, Perineal Area Shower/Bathe Self (QC): 4 (Pt completes with intermittent assist (R underarm) and SBA) Upper Body Dressing (QC): 3 (min A slingIND shirt.) Lower Body Dressing (QC): 4 (SBA) On/Off Footwear: 3 (mod A socksIND shoes) Toileting Hygiene (QC): 4 (SBA) Toilet Transfer (QC): 4 (SUP) Other Treatment Pt completes ADLs EOB as above. Pt requires skilled cues for sequencing and sling donning. Pt completes with fair safety. Pt ambulates without AE to therapy gym, completes UE exercises for strength/ endurance with 3# weight. Completes peg/ washer matching with 2# wrist weight donned and multiple trials due to decreased probelm solving and coordination/ shoulder strength. Pt requires increased time for tasks. Pt stands at tabletop to complete tabletop task with good static standing balance. Pt returns to room, educated on HEP and theraband use. Pt left in recliner with all needs met, call light in reach, chair alarm on. Education OT Patient Education: Exercise program, Home exercise program, Modified ADL techniques, Purpose of tx/functional activities, Safety issues Teaching Recipient: Patient Teaching Methods: Demonstration, Discussion Response to Teaching: Verbalize Understanding, Return Demonstration, Reinforcement Needed OT Short Term Goals Short Term Goals Time Frame: January 07, 2020 Upper body dressin Lower body dressin OT Plant Safety Engineer Goals Plant Safety Engineer Goals Time Frame: January 14, 2020 Eating (QC): 6 Oral Hygiene (QC): 6 Toileting Hygiene (QC): 6 Shower/Bathe Self (QC): 4 Upper Body Dressing (QC): 6 Lower Body Dressing (QC): 6 On/Off Footwear (QC): 6 1=Demonstrate adherence to instructed precautions during ADL tasks. 2=Patient will verbalize/demonstrate understanding of assistive devices/modifications for ADL. 3=Patient will improve strength/tolerance for activity to enable patient to perform ADL's. OT Education/Plan Problem List/Assessment Assessment: Decreased Activ Tolerance, Decreased Safety Aware, Impaired Cognition, Impaired Coordination, Impaired Funct Balance, Impaired I ADL's, Impaired Self-Care Skills Discharge Recommendations Plan/Recommendations: Continue POC Therapy Discharge Recommendati: Intermittent Supervision, Scheduled Assistance Treatment Plan/Plan of Care Treatment,Training & Education: Yes Patient would benefit from OT for education, treatment and training to promote independence in ADL's, mobility, safety and/or upper extremity function for ADL's. Plan of Care: ADL Retraining, Functional Mobility, Group Exercise/Act as Ind, Orthotic Fitting/Training, UE Funct Exercise/Act Treatment Duration: January 14, 2020 Frequency: At least 5 of 7 days/Wk (IRF) Estimated Hrs Per Day: 1.5 hours per day Agreement: Yes Rehab Potential: Fair Time/GCodes Start Time: 13:30 Stop Time: 14:45 Total Time Billed (hr/min): 75 Billed Treatment Time 1, ADL 2(30), EX 3 (45)= (75) GEORGI MANZANARES OTR January 07, 2020 14:20
[2020-01-07] MEDS: ENOXAPARIN 40 MG/0.4 ML (LOVENOX) SYR SC SCH (14:42)
[2020-01-07 16:00] VITALS: BP 134/76
[2020-01-07] MEDS: HYDROcodone/APAP 7.5 MG/325 MG (LORTAB, LORCET PLUS) TABLET PO PRN (19:06)
[2020-01-07] MEDS: MELATONIN 3 MG TABLET PO PRN (21:28)
[2020-01-08] MEDS: RT-ALBUTEROL/IPRATROPIUM 3 ML (DUONEB) VIAL INH SCH ×3 (02:18→10:25)
[2020-01-08 05:18] VITALS: BP 144/74
[2020-01-08] MEDS: predniSONE 20 MG TAB PO SCH (06:15)
--- NOTE | 2020-01-08 06:59 | Discharge Summary ---
Diagnosis/Chief Complaint Date of Admission December 31, 2019 at 11:50 Date of Discharge Discharge Date: January 08, 2020 Discharge Diagnosis Assessment: Severe fall Left hand shattered fracture Left facial hematoma COPD Wheezing Smoker HTN HLP DM OOC Cognitive deficit 05/21 SLUMS Brain surgery at 34yo Plan: Pain control BM regimen Nebs Prednisone IRF protocol Fall prevention O2 home (1) Facial hematoma (2) Left hand fracture (3) History of brain surgery (4) Cognitive deficits (5) COPD (chronic obstructive pulmonary disease) (6) Wheezing (7) Smoker (8) Diabetes (9) Hypertension (10) Hyperlipemia Discharge Summary Discharge Physical Examination Allergies: Coded Allergies: No Known Drug Allergies (Unverified , 01/14/15) Vitals & I&Os Vital Signs Date Time Temp Pulse Resp B/P (MAP) Pulse Ox O2 Delivery O2 Flow Rate FiO2 01/08/20 12:50 36.2 63 18 144/74 92 Nasal Cannula 3.00 General Appearance: Alert, Oriented X3, Cooperative Respiratory: Clear to Auscultation Cardiovascular: Regular Rate Neuro: Normal Gait Hospital Course Was the Problem List Reviewed?: Yes Hospital course: Pt had an uneventful eight day hospital course in inpatient rehab after moving from [facility] [place] after a severe fall with left facial trauma and left hand shattered-type fracture. Dr. Vila was consulted who recommended conservative management, dressing changes made and that was stable. Overall bowels returned back to normal, he did require Oxygen of 3 L at time of discharge he will weaned off Prednisone as an outpatient for exacerbation of COPD. Smoking cessation will be counseled but he likely will not cease that activity. Overall he feels pretty good and ready for discharge. Labs (last 24 hrs) Laboratory Tests 01/01/20 04:33: White Blood Count 13.5H, Red Blood Count 4.60, Hemoglobin 12.6L, Hematocrit 38L, Mean Corpuscular Volume 83, Mean Corpuscular Hemoglobin 27, Mean Corpuscular Hemoglobin Concent 33, Red Cell Distribution Width 14.8H, Platelet Count 218, Mean Platelet Volume 9.9, Neutrophils (%) (Auto) 82H, Lymphocytes (%) (Auto) 10L , Monocytes (%) (Auto) 8, Eosinophils (%) (Auto) 0, Basophils (%) (Auto) 0, Neutrophils # (Auto) 11.1H, Lymphocytes # (Auto) 1.4, Monocytes # (Auto) 1.0, Eosinophils # (Auto) 0.0, Basophils # (Auto) 0.0, Sodium Level 139, Potassium Level 4.4, Chloride Level 106, Carbon Dioxide Level 21, Anion Gap 12, Blood Urea Nitrogen 28H, Creatinine 1.52H, Estimat Glomerular Filtration Rate 45, BUN/Creatinine Ratio 18, Glucose Level 201H, Calcium Level 8.8, Corrected Calcium 9.0, Total Bilirubin 0.4, Aspartate Amino Transf (AST/SGOT) 13, Alanine Aminotransferase (ALT/SGPT) 10, Alkaline Phosphatase 54, Total Protein 7.5, Alb umin 3.8 01/01/20 16:05: Glucometer 203H 01/02/20 05:22: Glucometer 126H 01/02/20 15:43: Glucometer 126H 01/03/20 05:43: Glucometer 140H 01/03/20 15:27: Glucometer 122H 01/04/20 06:38: Glucometer 125H 01/04/20 15:46: Glucometer 111H 01/05/20 05:44: Glucometer 117H 01/05/20 16:24: Glucometer 116H 01/06/20 05:13: White Blood Count 9.9, Red Blood Count 4.85, Hemoglobin 13.3, Hematocrit 40, Mean Corpuscular Volume 83, Mean Corpuscular Hemoglobin 27, Mean Corpuscular Hemoglobin Concent 33, Red Cell Distribution Width 14.4, Platelet Count 247, Mean Platelet Volume 9.5, Neutrophils (%) (Auto) 71, Lymphocytes (%) (Auto) 21, Monocytes (%) (Auto) 7, Eosinophils (%) (Auto) 0, Basophils (%) (Auto) 0, Neutrophils # (Auto) 7.1, Lymphocytes # (Auto) 2.1, Monocytes # (Auto) 0.7, Eosinophils # (Auto) 0.0, Basophils # (Auto) 0.0, Sodium Level 137, Potassium Level 4.7, Chloride Level 105, Carbon Dioxide Level 20L, Anion Gap 12, Blood Urea Nitrogen 27H, Creatinine 1.08, Estimat Glomerular Filtration Rate > 60, BUN/Creatinine Ratio 25, Glucose Level 129H, Calcium Level 8.8, Corrected Calcium 9.0, Total Bilirubin 0.6, Aspartate Amino Transf (AST/SGOT) 18, Alanine Aminotransferase (ALT/SGPT) 23, Alkaline Phosphatase 49, B-Type Natriuretic Peptide 11.2, Total Protein 7.2, Albumin 3.7 01/06/20 16:05: Glucometer 157H 01/07/20 05:22: Glucometer 110 01/07/20 15:39: Glucometer 169H 01/08/20 05:29: Glucometer 111H Pending Labs Laboratory Tests 01/01/20 04:33: White Blood Count 13.5, Red Blood Count 4.60, Hemoglobin 12.6, Hematocrit 38, Mean Corpuscular Volume 83, Mean Corpuscular Hemoglobin 27, Mean Corpuscular Hemoglobin Concent 33, Red Cell Distribution Width 14.8, Platelet Count 218, Mean Platelet Volume 9.9, Neutrophils (%) (Auto) 82, Lymphocytes (%) (Auto) 10, Monocytes (%) (Auto) 8, Eosinophils (%) (Auto) 0, Basophils (%) (Auto) 0, Neutrophils # (Auto) 11.1, Lymphocytes # (Auto) 1.4, Monocytes # (Auto) 1.0, Eosinophils # (Auto) 0.0, Basophils # (Auto) 0.0, Sodium Level 139, Potassium Level 4.4, Chloride Level 106, Carbon Dioxide Level 21, Anion Gap 12, Blood Urea Nitrogen 28, Creatinine 1.52, Estimat Glomerular Filtration Rate 45, BUN /Creatinine Ratio 18, Glucose Level 201, Calcium Level 8.8, Corrected Calcium 9.0, Total Bilirubin 0.4, Aspartate Amino Transf (AST/SGOT) 13, Alanine Aminotransferase (ALT/SGPT) 10, Alkaline Phosphatase 54, Total Protein 7.5, Albumin 3.8 01/01/20 16:05: Glucometer 203 01/02/20 05:22: Glucometer 126 01/02/20 15:43: Glucometer 126 01/03/20 05:43: Glucometer 140 01/03/20 15:27: Glucometer 122 01/04/20 06:38: Glucometer 125 01/04/20 15:46: Glucometer 111 01/05/20 05:44: Glucometer 117 01/05/20 16:24: Glucometer 116 01/06/20 05:13: White Blood Count 9.9, Red Blood Count 4.85, Hemoglobin 13.3, Hematocrit 40, Mean Corpuscular Volume 83, Mean Corpuscular Hemoglobin 27, Mean Corpuscular Hemoglobin Concent 33, Red Cell Distribution Width 14.4, Platelet Count 247, Mean Platelet Volume 9.5, Neutrophils (%) (Auto) 71, Lymphocytes (%) (Auto) 21, Monocytes (%) (Auto) 7, Eosinophils (%) (Auto) 0, Basophils (%) (Auto) 0, Neutrophils # (Auto) 7.1, Lymphocytes # (Auto) 2.1, Monocytes # (Auto) 0.7, Eosinophils # (Auto) 0.0, Basophils # (Auto) 0.0, Sodium Level 137, Potassium Level 4.7, Chloride Level 105, Carbon Dioxide Level 20, Anion Gap 12, Blood Urea Nitrogen 27, Creatinine 1.08, Estimat Glomerular Filtration Rate > 60, BUN/Creatinine Ratio 25, Glucose Level 129, Calcium Level 8.8, Corrected Calcium 9.0, Total Bilirubin 0.6, Aspartate Amino Transf (AST/SGOT) 18, Alanine Aminotransferase (ALT/SGPT) 23, Alkaline Phosphatase 49, B-Type Natriuretic Peptide 11.2, Total Protein 7.2, Albumin 3.7 01/06/20 16:05: Glucometer 157 01/07/20 05:22: Glucometer 110 01/07/20 15:39: Glucometer 169 01/08/20 05:29: Glucometer 111 Discharge Home Medications: Active Scripts Active Guaifenesin-Codeine Syrup (Guaifenesin/Codeine Phosphate) 473 Ml Liquid 473 Ml PO Q4H PRN Prednisone 10 Mg Tab.ds.pk 10 Mg PO DAILY Senna-Time S Tablet (Sennosides/Docusate Sodium) 1 Each Tablet 1 Ea PO BID Montelukast Sodium 10 Mg Tablet 10 Mg PO DAILY Tessalon Perles (Benzonatate) 100 Mg Capsule 200 Mg PO TID HYDROcodone/APAP 7.5/325 TAB (Acetaminophen/Hydrocodone Bitart) 1 Ea Tablet 1 Ea PO Q4H PRN Iprat-Albut 0.5-3(2.5) mg/3 ml (Ipratropium/Albuterol Sulfate) 3 Ml Ampul.neb 3 Ml INH RTQ4HR Loratadine 10 Mg Tablet 10 Mg PO DAILY Reported Metformin HCl ER (Metformin HCl) 500 Mg Tab.er.24h 500 Mg PO DAILY Simvastatin 40 Mg Tablet 40 Mg PO DAILY Aspirin EC (Aspirin) 81 Mg Tablet. 81 Mg PO DAILY Amlodipine Besylate 10 Mg Tablet 10 Mg PO DAILY Instructions to patient/family Please see electronic discharge instructions given to patient. Diagnosis/Problems Diagnosis/Problems (1) Facial hematoma (2) Left hand fracture (3) History of brain surgery (4) Cognitive deficits (5) COPD (chronic obstructive pulmonary disease) Qualifiers: Qualified Codes: J44.9 - Chronic obstructive pulmonary disease, unspecified (6) Wheezing (7) Smoker (8) Diabetes (9) Hypertension (10) Hyperlipemia Clinical Quality Measures DVT/VTE Risk/Contraindication: Risk Factor Score Per Nursin RFS Level Per Nursing on Admit: 4+=Very High FAUSTINO GAITAN DO January 08, 2020 06:59
[2020-01-08] MEDS: ADVAIR DISKUS 250/50 IH SCH (07:01)
--- NOTE | 2020-01-08 08:20 | Therapy Team Discharge Summary ---
Therapy Discharge Summary Discharge Recommendations Date of Discharge Physical Therapy Patient came to rehab with L 4th/ 5th metacarpal fx, s/p fall. Upon evaluation patient performed bed mobility with independence, supine <-> sit with independence, sit <-> stand CGA, transfers CGA, car transfer CGA, ambulated 120' with a SPC with CGA (including 50' with at least 2 turns of 90 degrees and 10' over an uneven surface), and went up and down 4 steps using 1 handrail with min assist. Patient has been performing bed mobility and transfer training, balance and endurance training, functional strengthening, stair training, gait training, and education. Patient has made good progress and has met all of his chcf goals except for stairs. Now, patient performs bed mobility and transfers with independence, independent with car transfer, ambulates without an assistive device with independence (including 50' with at least 2 turns of 90 degrees and 10' over an uneven surface), can go up and down 4 steps using 2 handrails with setup, and can diamond picker an object from the floor with setup. Patient is discharging from this facility today and will be discharged from PT at this time. Occupational Therapy Decreased Activ Tolerance, Decreased Safety Aware, Impaired Cognition, Impaired Coordination, Impaired Funct Balance, Impaired I ADL's, Impaired Self-Care Skills PT Fish And Wildlife Technician Goals Custodial Goals PT Custodial Goals Time Frame: Jan 21, 2020 Roll Left to Right (QC): 6 Sit to Lying (QC): 6 Lying-Sitting on Side/Bed(QC): 6 Sit to Stand (QC): 6 Chair/Gff-ov-Whqhu Xfer(QC): 5 Car Transfer (QC): 5 Does the Patient Walk: Yes Walk 10 feet (QC): 5 Walk 10ft-Uneven Surface(QC): 5 Walk 50ft with 2 Turns (QC): 5 Walk 150 ft (QC): 5 Wheel 50 feet with 2 turns (QC: 9 1 Step (curb) (QC): 4 4 Steps (QC): 4 12 Steps (QC): 4 Picking up an Object (QC): 5 OT Fish And Wildlife Technician Goals Fish And Wildlife Technician Goals Time Frame: January 14, 2020 Eating (QC): 6 Oral Hygiene (QC): 6 Shower/Bathe Self (QC): 4 Upper Body Dressing (QC): 6 Lower Body Dressing (QC): 6 On/Off Footwear (QC): 6 Toileting Hygiene (QC): 6 Toilet/Commode Transfer (QC): 5 1=Demonstrate adherence to instructed precautions during ADL tasks. 2=Patient will verbalize/demonstrate understanding of assistive devices/modifications for ADL. 3=Patient will improve strength/tolerance for activity to enable patient to perform ADL's. Speech Fish And Wildlife Technician Goals Fish And Wildlife Technician Goals Patient will improve his cognitive-communicative status so that he may require minimal assist and/or cues. MAYRA MCCRACKEN PT January 08, 2020 08:20
[2020-01-08] MEDS: ASPIRIN E.C. 81 MG (ECOTRIN) TAB PO SCH (08:59)
[2020-01-08] MEDS: metFORMIN XR 500 MG (GLUCOPHAGE XR) TAB PO SCH (08:59)
[2020-01-08] MEDS: MONTELUKAST 10 MG (SINGULAIR) TAB PO SCH (09:00)
[2020-01-08] MEDS: BENZONATATE 100 MG (TESSALON) CAPSULE PO SCH (09:00)
[2020-01-08] MEDS: amLODIPine 10 MG (NORVASC) TAB PO SCH (09:00)
[2020-01-08] MEDS: LORATADINE (CLARITIN) 10 MG TAB PO SCH (09:00)
[2020-01-08] MEDS: DOCUSATE SODIUM 100 MG (COLACE) CAP PO SCH (09:01)
[2020-01-08] MEDS: polyethylene glycoL POWDER 17 GM (MIRALAX) PACK PO SCH (09:01)
[2020-01-08] MEDS: SENNA W/DOCUSATE (SENOKOT S) TABLET PO SCH (09:01)
--- NOTE | 2020-01-08 10:12 | NUR ---
CM/SS DISCHARGE Patient discharged home as planned. April will be taking patient to her home with her for a period of time. April will manage resume of his in-home service hours through [facility] [employer] and [employer] agency. DME: [place] O2 finalized with [facility]. Portable has been delivered to room. Unit RN communicating with EVI Chen regarding followup appointments, lemon picker is planned for 1130. There are no other discharge needs unless situation changes to warrant alternate interventions.
[2020-01-08 12:50] VITALS: BP 144/74
--- NOTE | 2020-01-09 09:12 | Therapy Team Discharge Summary ---
Therapy Discharge Summary Discharge Recommendations Date of Discharge January 08, 2020 at 11:30 Occupational Therapy Decreased Activ Tolerance, Decreased Safety Aware, Impaired Cognition, Impaired Coordination, Impaired Funct Balance, Impaired I ADL's, Impaired Self-Care Skills Speech-Language Pathology Patient was admitted to the ARU s/p fall with injury. Patient was given the SLUMS with an initial score of 9/30 obtained. Patient received skilled ST for cognitive improvement with a final score of 22/30. Patient met ST goals. He was discharged to his home on 01/08/2020 with family support. PT [facility] [address] [facility] Goals Prison Goals PT [facility] [address] [facility] Goals Time Frame: Jan 21, 2020 Roll Left to Right (QC): 6 Sit to Lying (QC): 6 Lying-Sitting on Side/Bed(QC): 6 Sit to Stand (QC): 6 Chair/Oyl-vk-Zhvqh Xfer(QC): 5 Car Transfer (QC): 5 Does the Patient Walk: Yes Walk 10 feet (QC): 5 Walk 10ft-Uneven Surface(QC): 5 Walk 50ft with 2 Turns (QC): 5 Walk 150 ft (QC): 5 Wheel 50 feet with 2 turns (QC: 9 1 Step (curb) (QC): 4 4 Steps (QC): 4 12 Steps (QC): 4 Picking up an Object (QC): 5 OT Prison Goals Prison Goals Time Frame: January 14, 2020 Eating (QC): 6 Oral Hygiene (QC): 6 Shower/Bathe Self (QC): 4 Upper Body Dressing (QC): 6 Lower Body Dressing (QC): 6 On/Off Footwear (QC): 6 Toileting Hygiene (QC): 6 Toilet/Commode Transfer (QC): 5 1=Demonstrate adherence to instructed precautions during ADL tasks. 2=Patient will verbalize/demonstrate understanding of assistive de vices/modifications for ADL. 3=Patient will improve strength/tolerance for activity to enable patient to perform ADL's. Speech [facility] [facility] Goals [facility] [facility] Goals Patient will improve his cognitive-communicative status so that he may require minimal assist and/or cues. MAK SANDERS January 09, 2020 09:12
--- NOTE | 2020-01-09 11:03 | Therapy Team Discharge Summary ---
Therapy Discharge Summary Discharge Recommendations Date of Discharge January 08, 2020 at 11:30 Occupational Therapy Pt admits to ARU with L 4th/ 5th fx s/p fall. Pt was IND without AE prior. Pt admits with: showering 3, UB 2, LB 3, footwear 2, hygiene 4. Pt and OT work towards higher fx IND through ADL tasks, strengthening, and balance training. Pt limited by pain and cognition. Pt d/c's with showering 4, UB 3 (assist with sling), LB 4, footwear 3, and hygiene 4. Pt to d/c home with assist from caregiver, pt d/c OT at this time. Decreased Activ Tolerance, Decreased Safety Aware, Impaired Cognition, Impaired Coordination, Impaired Funct Balance, Impaired I ADL's, Impaired Self-Care Skills PT Senior Living Goals Senior Living Goals PT Copy [facility] Goals Time Frame: Jan 21, 2020 Roll Left to Right (QC): 6 Sit to Lying (QC): 6 Lying-Sitting on Side/Bed(QC): 6 Sit to Stand (QC): 6 Chair/Mfo-be-Qloxg Xfer(QC): 5 Car Transfer (QC): 5 Does the Patient Walk: Yes Walk 10 feet (QC): 5 Walk 10ft-Uneven Surface(QC): 5 Walk 50ft with 2 Turns (QC): 5 Walk 150 ft (QC): 5 Wheel 50 feet with 2 turns (QC: 9 1 Step (curb) (QC): 4 4 Steps (QC): 4 12 Steps (QC): 4 Picking up an Object (QC): 5 OT Copy Holder Goals Copy Holder Goals Time Frame: January 14, 2020 Eating (QC): 6 Oral Hygiene (QC): 6 Shower/Bathe Self (QC): 4 Upper Body Dressing (QC): 6 Lower Body Dressing (QC): 6 On/Off Footwear (QC): 6 Toileting Hygiene (QC): 6 Toilet/Commode Transfer (QC): 5 1=Demonstrate adherence to instructed precautions during ADL tasks. 2=Patient will verbalize/demonstrate understanding of assistive devices/modifications for ADL. 3=Patient will improve strength/tolerance for activity to enable patient to perform ADL's. Speech Senior Living Goals Copy Holder Goals Patient will improve his cognitive-communicative status so that he may require minimal assist and/or cues. GEORGI MANZANARES OTR January 09, 2020 11:03
== END 2020-01-08 11:30 | disposition home or self-care (01) | DRG 560 ==
PROVIDERS: ADMIT Internal Medicine; ATTEND Internal Medicine
DX: S62.347D Nondisplaced fracture of base of fifth metacarpal bone, left hand, subsequent encounter for fracture with routine healing (principal); S62.367D Nondisplaced fracture of neck of fifth metacarpal bone, left hand, subsequent encounter for fracture with routine healing; S62.365D Nondisplaced fracture of neck of fourth metacarpal bone, left hand, subsequent encounter for fracture with routine healing; S62.643D Nondisplaced fracture of proximal phalanx of left middle finger, subsequent encounter for fracture with routine healing; S00.12XD Contusion of left eyelid and periocular area, subsequent encounter; J44.1 Chronic obstructive pulmonary disease with (acute) exacerbation; E11.65 Type 2 diabetes mellitus with hyperglycemia; I10 Essential (primary) hypertension; E78.5 Hyperlipidemia, unspecified; F17.210 Nicotine dependence, cigarettes, uncomplicated; I25.10 Atherosclerotic heart disease of native coronary artery without angina pectoris; F06.8 Other specified mental disorders due to known physiological condition; M19.91 Primary osteoarthritis, unspecified site; F41.9 Anxiety disorder, unspecified; F32.9 Major depressive disorder, single episode, unspecified; R09.02 Hypoxemia; Z98.890 Other specified postprocedural states; Z86.73 Personal history of transient ischemic attack (TIA), and cerebral infarction without residual deficits; Z90.89 Acquired absence of other organs; W19.XXXD Unspecified fall, subsequent encounter; Y92.009 Unspecified place in unspecified non-institutional (private) residence as the place of occurrence of the external cause
CPT/HCPCS: 36415; 71046; 73090; 73100; 73120; 80053; 82962; 83880; 85025; 94640; 94760; 94761

== ENCOUNTER 2020-01-27 17:12 | Observation (INO) | payer MEDICARE, MEDICAID ==
[~2020-01-27] VITALS: Ht 177 cm; Wt 91.0 kg
[~2020-01-27 17:12] MED LIST changes: +AMLO10TA7 PO; +ASPI-983 PO; +BENZ100C18 PO; +FLUT1DIS26 IH; +GUAI473L PO; +HYDR-34 PO; +HYDR-4227 PO; +IPRA3AMP31 IH; +IPRA3AMP31 INH; +LORA10TA7 PO; +METF-865 PO; +MONT10TA26 PO; +PRED10TA22 PO; +SENN-20 PO; +SIMV40TA25 PO
[2020-01-27] MEDS ORDERED: APAP 325 MG/10.15 ML LIQ (TYLENOL) UDC PO STA (17:16)
[2020-01-27] MEDS ORDERED: ACETAMINOPHEN 500 MG TAB (TYLENOL) PO ONE (17:45)
--- NOTE | 2020-01-27 17:49 | Diagnostic Imaging Report ---
INDICATION: Fever. EXAMINATION: Upright portable chest was obtained. FINDINGS: Normal heart size and vascularity. The lungs are clear. There is no effusion or pneumothorax. There are old healed rib fractures on the right. IMPRESSION: No acute abnormality is seen with no significant change from 01/06/2020. Dictated by: Dictated on workstation # [id number]
[2020-01-27 17:59] LABS: BASOPHILS # (AUTO) 0.1 10^3/uL (0.0-0.1); BASOPHILS % (AUTO) 0 % (0-10); CLARITY,URINE CLOUDY; COLOR,URINE BROWN; EOSINOPHILS # (AUTO) 0.2 10^3/uL (0.0-0.3); EOSINOPHILS % (AUTO) 1 % (0-10); GLUCOSE, URINE (UA) NEGATIVE (NEGATIVE); HEMATOCRIT 40 % (40-54); HEMOGLOBIN 13.5 G/DL (13.3-17.7); KETONES,URINE TRACE (NEGATIVE); LEUKOCYTE ESTERASE ,URINE 2+ (NEGATIVE); LYMPHOCYTES # (AUTO) 2.3 X 10^3 (1.0-4.0); LYMPHOCYTES % (AUTO) 15 % (12-44); MEAN CORPUSCULAR HEMOGLOBIN 28 PG (25-34); MEAN CORPUSCULAR HGB CONC 34 G/DL (32-36); MEAN CORPUSCULAR VOLUME 83 FL (80-99); MEAN PLATELET VOLUME 9.8 FL (7.4-10.4); MONOCYTES # (AUTO) 1.6 X 10^3 (0.0-1.0); MONOCYTES % (AUTO) 11 % (0-12); NEUTROPHILS # (AUTO) 11.1 X 10^3 (1.8-7.8); NEUTROPHILS % (AUTO) 73 % (42-75); NITRITE,URINE POSITIVE (NEGATIVE); PH,URINE 6.5 (5-9); PLATELET COUNT 204 10^3/uL (130-400); PROTEIN,URINE 3+ (NEGATIVE); RED CELL DISTRIBUTION WIDTH 14.9 % (10.0-14.5); WHITE BLOOD COUNT 15.2 10^3/uL (4.3-11.0)
[2020-01-27 18:07] LABS: BACTERIA,URINE MODERATE /HPF; BILIRUBIN,URINE 2+ (NEGATIVE); RBC,URINE >100 /HPF; WBC,URINE >100 /HPF
[2020-01-27 18:10] LABS: PROTHROMBIN TIME PATIENT 13.6 SEC (12.2-14.7)
[2020-01-27 18:14] LABS: ALBUMIN 3.9 GM/DL (3.2-4.5)
[2020-01-27 18:15] LABS: CALCIUM 8.8 MG/DL (8.5-10.1)
[2020-01-27 18:17] LABS: TOTAL PROTEIN 7.4 GM/DL (6.4-8.2)
[2020-01-27 18:18] LABS: BILIRUBIN,TOTAL 0.8 MG/DL (0.1-1.0)
[2020-01-27 18:20] LABS: CREATININE SERUM 1.3 MG/DL (0.60-1.30)
[2020-01-27] MEDS ORDERED: NS IV 1000 ML 1,000 ML IV SCH ×2 (18:27→19:09)
--- NOTE | 2020-01-27 18:27 | ED General ---
General Chief Complaint: Fever-Adult/Adol Stated Complaint: FEVER/POSS KIDNEY INFECTION History of Present Illness Date Seen by Provider: Jan 27, 2020 Time Seen by Provider: 17:30 Initial Comments 74 year old male, presents from [facility] for UTI and Fever. Temp was 101.6 at [facility], currently 102.7. Reports 2 days of hematuria. No history of UTIs or prostate issues in the past. He has not had any medication for the fever. He is alert and oriented. 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 Timing/Duration: 2-3 Days Severity: Mild Associated Systoms: No Chest Pain, No Cough, No Diaphoresis; Fever/Chills; No Headaches, No Loss of Appetite, No Malaise, No Nausea/Vomiting, No Rash, No Seizure, No Shortness of Air, No Syncope, No Weakness Allergies and Home Medications Allergies Coded Allergies: No Known Drug Allergies (Unverified , 01/14/15) Home Medications Amlodipine Besylate 10 Mg Tablet, 10 MG PO DAILY, (Reported) Aspirin 81 Mg Tablet.dr, 81 MG PO DAILY, (Reported) Benzonatate 100 Mg Capsule, 200 MG PO TID Prescribed by: FAUSTINO GAITAN on 01/06/20 162 Guaifenesin/Codeine Phosphate 473 Ml Liquid, 473 ML PO Q4H PRN for COUGH Prescribed by: FAUSTINO GAITAN on 01/06/20 1620 Hydrocodone Bit/Acetaminophen 1 Ea Tablet, 1 EA PO Q4H PRN for PAIN-MODERATE (5- 7) Prescribed by: FAUSTINO GAITAN on 01/06/20 1620 Ipratropium/Albuterol Sulfate 3 Ml Ampul.neb, 3 ML INH RTQ4HR Prescribed by: FAUSTINO GAITAN on 01/06/20 1620 Loratadine 10 Mg Tablet, 10 MG PO DAILY Prescribed by: FAUSTINO GAITAN on 01/06/20 1620 Metformin HCl 500 Mg Tab.er.24h, 500 MG PO DAILY, (Reported) Montelukast Sodium 10 Mg Tablet, 10 MG PO DAILY Prescribed by: FAUSTINO GAITAN on 01/06/20 1620 Prednisone 10 Mg Tab.ds.pk, 10 MG PO DAILY Prescribed by: FAUSTINO GAITAN on 01/06/20 1620 Sennosides/Docusate Sodium 1 Each Tablet, 1 EA PO BID Prescribed by: FAUSTINO GAITAN on 01/06/20 1620 Simvastatin 40 Mg Tablet, 40 MG PO DAILY, (Reported) Patient Home Medication List Home Medication List Reviewed: Yes Review of Systems Review of Systems Constitutional: see HPI, chills, fever Respiratory: no symptoms reported, see HPI; No cough Cardiovascular: no symptoms reported, see HPI; No chest pain Gastrointestinal: no symptoms reported, see HPI; No abdominal pain, No nausea, No vomiting Genitourinary: see HPI, dysuria, frequency, hematuria All Other Systems Reviewed Negative Unless Noted: Yes Past Egtjvan-Uiaufp-Jytlec Hx Past Med/Social Hx: Reviewed Nursing Past Med/Soc Hx Patient Social History Type Used: Cigarettes Recent Foreign Travel: No Contact w/Someone Who Travel: No Recent Hopitalizations: Yes ([facility] [place] Seasonal Allergies Seasonal Allergies: No Past Medical History Surgeries: Yes (brain aneurysm x2 removed ) Adenoidectomy, Orthopedic Respiratory: Yes COPD Currently Using CPAP: No Currently Using BIPAP: No Cardiac: Yes Coronary Artery Disease, High Cholesterol, Hypertension Neurological: Yes (BRAIN ANEURYSM X2 REMOVED-METAL CLIPS PLACED) Stroke Genitourinary: No Kidney Stones, Renal Failure Gastrointestinal: No Musculoskeletal: Yes (MUSCLE WEAKNESS, TORN ROTATOR CUFF) Arthritis, Chronic Back Pain, Fractures Endocrine: Yes Diabetes, Non-Insulin dep Cataract Cancer: No Psychosocial: No Integumentary: No Blood Disorders: No Family Medical History Patient reports no known family medical history. No Pertinent Family Hx Physical Exam-Suspected Sepsis Physical Exam Vital Signs Vital Signs - First Documented 01/27/20 01/27/20 17:32 19:35 Temp 39.3 Pulse 93 Resp 18 B/P (MAP) 135/64 (87) Pulse Ox 98 O2 Delivery Room Air Capillary Refill : Height, Weight, BMI Height: 5'6.00" Weight: 204lbs. oz. [id number]; 26.76 BMI Method:Stated General Appearance: No Apparent Distress, WD/WN HEENT: PERRL/EOMI, TMs Normal, Normal ENT Inspection, Pharynx Normal Neck: Full Range of Motion, Normal Inspection, Non Tender, Supple Respiratory: Chest Non Tender, Lungs Clear, Normal Breath Sounds Cardiovascular: Regular Rate, Rhythm, No Edema, No Murmur, Normal Peripheral Pulses Gastrointestinal: Normal Bowel Sounds, Non Tender, Soft Extremity: Normal Capillary Refill, Normal Inspection, Normal Range of Motion, No Calf Tenderness, No Pedal Edema Neurologic/Psychiatric: Alert, Oriented x3, No Motor/Sensory Deficits, Normal Mood/Affect Skin: normal color, warm/dry; No diaphoresis, No rash, No ulcerations Lymphatic: No Adenopathy Focused Exam Sepsis Stage: Sepsis Possible Source: Genitouriary Lactate Level 01/27/20 17:45: Lactic Acid Level 1.77 Time of Focused Exam: 19:30 Respiratory: Chest Non Tender, Lungs Clear, Normal Breath Sounds; No Respiratory Distress Cardiovascular: Regular Rate, Rhythm, No Edema, No Murmur, Normal Peripheral Pulses Capillary Refill: Less Than 3 Seconds Skin: normal color, warm/dry Lactic Acid Level Laboratory Tests Test 01/27/20 17:45 Lactic Acid Level 1.77 MMOL/L (0.50-2.00) Within 3hrs of presentation: Admin fluids, Admin ABX, Blood cultures prior to ABX's, Focus exam (Improved from admission, Temp down to 99.4; HR and B/P have remained stable. ), Lactate level Progress/Results/Core Measures Suspected Sepsis Recent Fever Within 48 Hours: Yes Infection Criteria Present: Suspected New Infection New/Unexplained Altered Menta: No Within 3hrs of presentation: Admin fluids, Admin ABX, Blood cultures prior to ABX's, Focus exam, Lactate level SIRS Temperature: Pulse: Respiratory Rate: Laboratory Tests 01/27/20 17:45: White Blood Count 15.2H Blood Pressure / Mean: 01/27/20 17:45: Lactic Acid Level 1.77 Laboratory Tests 01/27/20 17:45: Creatinine 1.30, INR Comment 1.0, Platelet Count 204, Total Bilirubin 0.8 Results/Orders Lab Results Laboratory Tests Test 01/27/20 17:45 Range/Units White Blood Count 15.2 H 4.3-11.0 10^3/uL Red Blood Count 4.82 4.35-5.85 10^6/uL Hemoglobin 13.5 13.3-17.7 G/DL Hematocrit 40 40-54 % Mean Corpuscular Volume 83 80-99 FL Mean Corpuscular Hemoglobin 28 25-34 PG Mean Corpuscular Hemoglobin Concent 34 32-36 G/DL Red Cell Distribution Width 14.9 H 10.0-14.5 % Platelet Count 204 130-400 10^3/uL Mean Platelet Volume 9.8 7.4-10.4 FL Neutrophils (%) (Auto) 73 42-75 % Lymphocytes (%) (Auto) 15 12-44 % Monocytes (%) (Auto) 11 0-12 % Eosinophils (%) (Auto) 1 0-10 % Basophils (%) (Auto) 0 0-10 % Neutrophils # (Auto) 11.1 H 1.8-7.8 X 10^3 Lymphocytes # (Auto) 2.3 1.0-4.0 X 10^3 Monocytes # (Auto) 1.6 H 0.0-1.0 X 10^3 Eosinophils # (Auto) 0.2 0.0-0.3 10^3/uL Basophils # (Auto) 0.1 0.0-0.1 10^3/uL Neutrophils % (Manual) 66 % Lymphocytes % (Manual) 20 % Monocytes % (Manual) 13 % Basophils % (Manual) 1 % Blood Morphology Comment NORMAL Prothrombin Time 13.6 12.2-14.7 SEC INR Comment 1.0 0.8-1.4 Activated Partial Thromboplast Time 34 24-35 SEC Urine Color BROWN H Urine Clarity CLOUDY Urine pH 6.5 5-9 Urine Specific [place] >=1.030 1.016-1.022 Urine Protein 3+ H NEGATIVE Urine Glucose (UA) NEGATIVE NEGATIVE Urine Ketones TRACE H NEGATIVE Urine Nitrite POSITIVE H NEGATIVE Urine Bilirubin 2+ H NEGATIVE Urine Urobilinogen 2.0 < = 1.0 MG/DL Urine Leukocyte Esterase 2+ H NEGATIVE Urine RBC (Auto) 3+ H NEGATIVE Urine RBC >100 H /HPF Urine WBC >100 H /HPF Urine Crystals NONE /LPF Urine Bacteria MODERATE H /HPF Urine Casts NONE /LPF Urine Mucus NEGATIVE /LPF Urine Culture Indicated YES Sodium Level 137 135-145 MMOL/L Potassium Level 4.0 3.6-5.0 MMOL/L Chloride Level 105 98-107 MMOL/L Carbon Dioxide Level 19 L 21-32 MMOL/L Anion Gap 13 5-14 MMOL/L Blood Urea Nitrogen 15 7-18 MG/DL Creatinine 1.30 0.60-1.30 MG/DL Estimat Glomerular Filtration Rate 54 BUN/Creatinine Ratio 12 Glucose Level 154 H 70-105 MG/DL Lactic Acid Level 1.77 0.50-2.00 MMOL/L Calcium Level 8.8 8.5-10.1 MG/DL Corrected Calcium 8.9 8.5-10.1 MG/DL Total Bilirubin 0.8 0.1-1.0 MG/DL Aspartate Amino Transf (AST/SGOT) 12 5-34 U/L Alanine Aminotransferase (ALT/SGPT) 19 0-55 U/L Alkaline Phosphatase 66 40-136 U/L C-Reactive Protein High Sensitivity 12.96 H 0.00-0.50 MG/DL Total Protein 7.4 6.4-8.2 GM/DL Albumin 3.9 3.2-4.5 GM/DL My Orders Orders - ANDRÉSTRINI Cbc With Automated Diff (01/27/20 17:16) Comprehensive Metabolic Panel (01/27/20 17:16) Blood Culture (01/27/20 17:16) Chest 1 View, Ap/Pa Only (01/27/20 17:16) Hs C Reactive Protein (01/27/20 17:16) Protime With Inr (01/27/20 17:16) Partial Thromboplastin Time (01/27/20 17:16) Lactic Acid Analyzer (01/27/20 17:16) Ua Culture If Indicated (01/27/20 17:16) Acetaminophen Tablet (Tylenol Tablet) (01/27/20 17:45) Manual Differential (01/27/20 17:45) Urine Culture (01/27/20 17:45) Ed Iv/Invasive Line Start (01/27/20 18:27) Ns Iv 1000 Ml (Sodium Chloride 0.9%) (01/27/20 18:27) Ceftriaxone For Iv Use (Rocephin For I (01/27/20 18:30) Ed Iv/Invasive Line Start (01/27/20 19:09) Ns Iv 1000 Ml (Sodium Chloride 0.9%) (01/27/20 19:09) Medications Given in ED Current Medications Medications Dose Ordered Sig/Analisa Route Start Time Stop Time Status Last Admin Dose Admin Acetaminophen 1,000 mg ONCE ONCE PO 01/27/20 17:45 01/27/20 17:46 DC 01/27/20 18:01 1,000 MG Ceftriaxone Sodium 1000 mg/ Sterile Water 10 ml @ 200 mls/hr ONCE ONCE IV 01/27/20 18:30 01/27/20 18:32 DC 01/27/20 18:46 200 MLS/HR Vital Signs/I&O 01/27/20 01/27/20 01/27/20 01/27/20 17:32 19:35 19:56 20:19 Temp 39.3 37.4 37.4 37.4 Pulse 93 78 78 Resp 18 16 16 B/P (MAP) 135/64 (87) 122/55 122/55 Pulse Ox 98 94 94 O2 Delivery Room Air Room Air 01/27/20 20:21 Temp 37.4 Pulse 78 Resp 16 B/P (MAP) 122/55 (77) Pulse Ox 94 O2 Delivery Room Air Capillary Refill : Progress Note : Time: 17:30 Progress Note Patient seen and evaluated, will obtain labs, Tylenol 1000 mg orally, normal saline 1 L, and chest x-ray. 1715 No complaints at this time, B/P and HR are stable. Cefazolin 1 gm IV. 1830 Temp 99.[address] Kyle, agreeable with plans for admission. 2nd Liter of NS IV. 0 Patient has remained stable, no complaints of pain, n/v, or dysuria. Transferred to Room 414. Diagnostic Imaging Diagonstic Imaging: Xray Plain Films/CT/US/NM/MRI: chest Comments NAME: GAB ARCHIBALD [facility] REC#: [id number] PT STATUS: REG ER : 1945 PHYSICIAN: TRINI BOWEN ADMIT DATE: 01/27/20/ER Signed Date of Exam:01/27/20 CHEST 1 VIEW, AP/PA ONLY INDICATION: Fever. EXAMINATION: Upright portable chest was obtained. FINDINGS: Normal heart size and vascularity. The lungs are clear. There is no effusion or pneumothorax. There are old healed rib fractures on the right. IMPRESSION: No acute abnormality is seen with no significant change from 01/06/2020. Dictated by: Dictated on workstation # [id number] Dict: 01/27/20 1744 Trans: 01/27/201750 [facility] [id number] Interpreted by: NALDO VARGAS MD Electronically signed by: NALDO VARGAS MD 01/27/201750 Reviewed: Reviewed by Me Departure Impression Primary Impression: UTI (urinary tract infection) Qualified Codes: N30.01 - Acute cystitis with hematuria Additional Impressions: Sepsis Qualified Codes: A41.9 - Sepsis, unspecified organism Fever Qualified Codes: R50.9 - Fever, unspecified Disposition: 09 ADMITTED INPATIENT Condition: Stable Admissions Decision to Admit/Date: Jan 27, 2020 Time/Decision to Admit Time: 18:30 Departure-Patient Inst. Referrals: [facility] (PCP) Primary Care Physician DEREK VEE (Family) Primary Care Physician TRINI BOWEN Jan 27, 2020 18:26
[2020-01-27] MEDS ORDERED: cefTRIAXone FOR IV USE 1,000 MG in WATER (STERILE) FOR INJECTION 10 ML IV ONE (18:30)
[2020-01-27 18:42] LABS: BASOPHILS % (MANUAL) 1 %; LYMPHOCYTES % (MANUAL) 20 %; MONOCYTES % (MANUAL) 13 %; NEUTROPHILS % (MANUAL) 66 %; RBC MORPH NORMAL
--- NOTE | 2020-01-27 19:15 | NUR ---
REPORT TO TORSTEN ENGEL
--- NOTE | 2020-01-27 20:03 | NUR ---
GAB ARCHIBALD admitted to room 414-1, with an admitting diagnosis of urosepsis , on 01/27/20 from ER via , accompanied by ER STAFF.GAB ARCHIBALD introduced to surroundings, call light, bed controls, phone, TV, temperature control, lights, meal times, smoking policy, visitor policy, side rail policy, bathrooms and showers. Patient Rights given to patient in the handbook. GAB ARCHIBALD verbalizes understanding that [facility] is not responsible for the loss or damage to any personal effects or valuables that are kept in the patients posession during their hospitalization. The following Patient Care Plans were discussed with GAB ARCHIBALD: Discharge Planning, UTI, and ELECTROLYTE IMBALANCE. GAB ARCHIBALD verbalizes understanding of Interdisciplinary Patient Education. Patient and/or family were informed about the Rapid Response Team and its purpose.
[2020-01-27 20:19] VITALS: BP 122/55
[2020-01-27 20:21] VITALS: BP 122/55
[2020-01-27] MEDS ORDERED: ACETAMINOPHEN 325 MG TABLET PO PRN (20:30)
[2020-01-27] MEDS ORDERED: IBUPROFEN 600 MG (MOTRIN) TAB PO PRN (20:30)
[2020-01-27] MEDS ORDERED: ONDANSETRON 4 MG/2 ML (SDV) Z0FRAN IV PRN (20:30)
[2020-01-27] MEDS: ENOXAPARIN 40 MG/0.4 ML (LOVENOX) SYR SC SCH (22:10)
[2020-01-27] MEDS: NS IV 1000 ML 1,000 ML IV SCH (22:16)
[2020-01-28 00:20] VITALS: BP 156/76
[2020-01-28] MEDS: ceFAZolin 1,000 MG/SWFI 10 ML IV PUSH IV SCH ×6 (03:30→18:47)
[2020-01-28 04:00] VITALS: BP 139/75
[2020-01-28] MEDS ORDERED: NICOTINE 21 MG (NICODERM) PATCH TD PRN (04:15)
[2020-01-28 05:40] LABS: BASOPHILS % (AUTO) 0 % (0-10); EOSINOPHILS # (AUTO) 0.3 10^3/uL (0.0-0.3); EOSINOPHILS % (AUTO) 3 % (0-10); HEMATOCRIT 36 % (40-54); HEMOGLOBIN 11.7 G/DL (13.3-17.7); LYMPHOCYTES # (AUTO) 1.9 X 10^3 (1.0-4.0); LYMPHOCYTES % (AUTO) 18 % (12-44); MEAN CORPUSCULAR HEMOGLOBIN 28 PG (25-34); MEAN CORPUSCULAR HGB CONC 33 G/DL (32-36); MEAN CORPUSCULAR VOLUME 85 FL (80-99); MEAN PLATELET VOLUME 10.2 FL (7.4-10.4); MONOCYTES # (AUTO) 1.2 X 10^3 (0.0-1.0); MONOCYTES % (AUTO) 11 % (0-12); NEUTROPHILS # (AUTO) 7.3 X 10^3 (1.8-7.8); NEUTROPHILS % (AUTO) 69 % (42-75); PLATELET COUNT 180 10^3/uL (130-400); RED CELL DISTRIBUTION WIDTH 14.8 % (10.0-14.5); WHITE BLOOD COUNT 10.7 10^3/uL (4.3-11.0)
[2020-01-28 05:47] LABS: ALBUMIN 3.2 GM/DL (3.2-4.5); CHLORIDE 109 MMOL/L (98-107); SODIUM 138 MMOL/L (135-145)
[2020-01-28 05:48] LABS: CALCIUM 7.7 MG/DL (8.5-10.1)
[2020-01-28 05:49] LABS: GLUCOSE 139 MG/DL (70-105); TOTAL PROTEIN 6.1 GM/DL (6.4-8.2)
[2020-01-28 05:51] LABS: BILIRUBIN,TOTAL 0.8 MG/DL (0.1-1.0); CARBON DIOXIDE 20 MMOL/L (21-32)
[2020-01-28 05:53] LABS: ALKALINE PHOSPHATASE 55 U/L (40-136); CREATININE SERUM 1.09 MG/DL (0.60-1.30); GFR ESTIMATED > 60
[2020-01-28 05:54] LABS: BUN/CREATININE RATIO 12
[2020-01-28 05:56] LABS: ALANINE AMINOTRANSFERASE 15 U/L (0-55)
[2020-01-28] MEDS: NS IV 1000 ML 1,000 ML IV SCH ×3 (07:34→23:49)
[2020-01-28 08:44] VITALS: BP 142/73
[2020-01-28 12:27] VITALS: BP 161/91
--- NOTE | 2020-01-28 14:04 | NUR ---
RD ASSESSMENT PMHx: COPD; CAD; hypercholesterolemia; HTN; stroke; renal failure; DM PT INTERACTION: Pt was awake and pleasant during nutrition assessment. Note pt is a poor historian, and stated several times "I have a poor memory." Pt states current appetite is good. Note avg PO intake 75% x2meal, per chart review. Pt states following a regular diet at home and has no issues with chewing/swallowing food, despite missing teeth. Pt states no recent issues with nausea, vomiting, constipation, or diarrhea, and that his last BM was 6/8. Note pt not currently on bowel regimen per chart review. Pt states unsure of recent wt changes. Note recent 6# wt loss 1mon, per chart review. Pt states current DM management is pretty good, but unsure of avg blood glucose levels. Note unable to determine recent HbA1c, per chart review. ABNORMAL NUTRITION-RELATED LAB VALUES LOW: Ca 7.7; Pro 6.1 HIGH: Cl 109; glu 139 Est. kcal needs: 4562-6660 kcal | 20-25 kcal/kg Est. Pro needs: 73-91 g Pro | 0.8-1.0 g Pro/kg PES STATEMENT: Given current PO intake, no nutrition diagnosis at this time (NO-1.1) INTERVENTION: Continue with current diet order of CHO 60g/m 1snack diet. Chose not to offer DM education at this time d/t pt's poor memory. May attempt to offer when family is present at bedside. Will continue to follow and reassess as pt needs, intake, and status change. MONITOR/EVALUATE: PO Intake; Plan of Care; Hydration Status; Weight Status; Lab Values Mario Abad, , RD, LD
--- NOTE | 2020-01-28 16:21 | NUR ---
SPOKE WITH PT AND HE INDICATED HE DID KNOW KNOW HIS MEDICATIONS- HE SUGGESTED I CALLED DL (EIELEN) SINCE SHE TAKES CARE OF THEM. I HAVE TRIED TO CALL HER MULTIPLE TIMES AND HAVE LEFT VOICEMAILS AND MY CALL HAS NOT BEEN RETURNED SOON I HEAR FROM HER I WILL UPDATE THE MED REC AND NOTES NEEDED
[2020-01-28 16:26] VITALS: BP 137/82
[2020-01-28 19:56] VITALS: BP 144/73
--- NOTE | 2020-01-28 21:24 | History & Physical ---
HPI History of Present Illness: 74 yo M that has been falling at home and was having increasing weakness. Patient arrived at ER with UTI. Grandson states that he had been more forgetful and confused the last few days. Patient states that on Tuesday he started having blood in his urine and it was painful to urinate. Denies ever having these symptoms in the past. Patient also has DM which is treated with metformin and HTN which he is treated with norvasc. States that since getting the fluids he is feeling better. Source: patient, family (Grandson over the phone) Exam Limitations: no limitations Date seen by provider: Jan 28, 2020 Time Seen by Provider: 10:15 Attending Physician Marisela Kyle MD [facility] [place],[facility] Consult Date of Admission Jan 27, 2020 at 19:43 Home Medications Home Medications Reviewed patient Home Medication Reconciliation performed by pharmacy medication reconciliations pharmacy technician per diem and/or nursing. Patients Allergies have been reviewed. Allergies Coded Allergies: No Known Drug Allergies (Unverified , 01/14/15) FYC-Njpbqy-Fmjous Hx Patient Social History Alcohol Use: Denies Use Recreational Drug Use: No Smoking Status: Current Everyday Smoker Type Used: Cigarettes Recent Foreign Travel: No Contact w/other who traveled: No Recent Hopitalizations: No ([facility]) Recent Infectious Disease Expo: No Immunizations Up To Date Date of Pneumonia Vaccine: Feb 03, 2018 Past Medical History NIDDM HTN Family Medical History Significant Family History: No Pertinent Family Hx Family History: Patient reports no known family medical history. Review of Systems ([facility]) Constitutional: fever, malaise EENTM: no symptoms reported; No vision loss, No nose congestion Respiratory: no symptoms reported; No cough, No dyspnea on exertion, No short of breath Cardiovascular: no symptoms reported; No chest pain, No edema, No palpitations Gastrointestinal: abdominal pain, loss of appetite, nausea Genitourinary: dysuria, frequency, hematuria Musculoskeletal: back pain (chronic) Skin: no symptoms reported; No lesions, No rash Psychiatric/Neurological: Numbness, Weakness Reviewed Test Results Reviewed Test Results Lab Laboratory Tests Test 01/28/20 05:10 Range/Units White Blood Count 10.7 4.3-11.0 10^3/uL Red Blood Count 4.25 L 4.35-5.85 10^6/uL Hemoglobin 11.7 L 13.3-17.7 G/DL Hematocrit 36 L 40-54 % Mean Corpuscular Volume 85 80-99 FL Mean Corpuscular Hemoglobin 28 25-34 PG Mean Corpuscular Hemoglobin Concent 33 32-36 G/DL Red Cell Distribution Width 14.8 H 10.0-14.5 % Platelet Count 180 130-400 10^3/uL Mean Platelet Volume 10.2 7.4-10.4 FL Neutrophils (%) (Auto) 69 42-75 % Lymphocytes (%) (Auto) 18 12-44 % Monocytes (%) (Auto) 11 0-12 % Eosinophils (%) (Auto) 3 0-10 % Basophils (%) (Auto) 0 0-10 % Neutrophils # (Auto) 7.3 1.8-7.8 X 10^3 Lymphocytes # (Auto) 1.9 1.0-4.0 X 10^3 Monocytes # (Auto) 1.2 H 0.0-1.0 X 10^3 Eosinophils # (Auto) 0.3 0.0-0.3 10^3/uL Basophils # (Auto) 0.0 0.0-0.1 10^3/uL Sodium Level 138 135-145 MMOL/L Potassium Level 4.0 3.6-5.0 MMOL/L Chloride Level 109 H 98-107 MMOL/L Carbon Dioxide Level 20 L 21-32 MMOL/L Anion Gap 9 5-14 MMOL/L Blood Urea Nitrogen 13 7-18 MG/DL Creatinine 1.09 0.60-1.30 MG/DL Estimat Glomerular Filtration Rate > 60 BUN/Creatinine Ratio 12 Glucose Level 139 H 70-105 MG/DL Calcium Level 7.7 L 8.5-10.1 MG/DL Corrected Calcium 8.3 L 8.5-10.1 MG/DL Total Bilirubin 0.8 0.1-1.0 MG/DL Aspartate Amino Transf (AST/SGOT) 11 5-34 U/L Alanine Aminotransferase (ALT/SGPT) 15 0-55 U/L Alkaline Phosphatase 55 40-136 U/L Total Protein 6.1 L 6.4-8.2 GM/DL Albumin 3.2 3.2-4.5 GM/DL Physical Exam-([facility]) Physical Exam Vital Signs VS - Last 72 Hours, by Label 01/27/20 01/27/20 01/27/20 01/27/20 17:32 19:35 19:56 20:19 Temp 39.3 37.4 37.4 37.4 Pulse 93 78 78 Resp 18 16 16 B/P (MAP) 135/64 (87) 122/55 122/55 Pulse Ox 98 94 94 O2 Delivery Room Air Room Air 01/27/20 01/27/20 01/28/20 01/28/20 20:21 20:36 00:20 04:00 Temp 37.4 37.3 37.3 Pulse 78 76 70 Resp 16 18 18 B/P (MAP) 122/55 (77) 156/76 (102) 139/75 (96) Pulse Ox 94 94 95 94 O2 Delivery Room Air Room Air Room Air Room Air 01/28/20 01/28/20 01/28/20 01/28/20 08:00 08:44 12:27 16:26 Temp 36.3 37.3 37.4 Pulse 78 73 71 Resp 19 19 18 B/P (MAP) 142/73 (96) 161/91 (114) 137/82 (100) Pulse Ox 95 99 95 95 O2 Delivery Room Air Room Air Room Air Room Air 01/28/20 19:56 Temp 37.1 Pulse 71 Resp 18 B/P (MAP) 144/73 (96) Pulse Ox 92 O2 Delivery Room Air Capillary Refill : Less Than 3 Seconds General Appearance: WD/WN, no apparent distress HEENT: PERRL/EOMI, other (Left eye brusing) Neck: non-tender, full range of motion, supple Respiratory: chest non-tender, lungs clear, normal breath sounds, no respiratory distress, no accessory muscle use Cardiovascular: normal peripheral pulses, no murmur Gastrointestinal: normal bowel sounds, non tender, soft, no organomegaly Extremities: normal range of motion, no calf tenderness, normal capillary refill, pedal edema (1+ pitting edema bilaterally) Neurologic/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: 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 II-XII nml as tested, alert, oriented x 3 Skin: normal color, warm/dry Lymphatic: no adenopathy Assessment/Plan Assessment/Plan Admission Status: Observation (1) Sepsis Status: Acute Assessment & Plan: - Received IVF protocol, decreased IVFs this AM, good PO intake, Sepsis Resolved, Continue Rocephin, Culture Ecoli, pending sensitivities Qualifiers: Qualified Codes: A41.9 - Sepsis, unspecified organism (2) UTI (urinary tract infection) Status: Acute Qualifiers: Qualified Codes: N30.01 - Acute cystitis with hematuria (3) Facial hematoma Status: Acute Qualifiers: Qualified Codes: S00.83XA - Contusion of other part of head, initial encounter (4) Hypertension Status: Chronic Assessment & Plan: - Holding meds due to normocytic blood pressures Qualifiers: Qualified Codes: I10 - Essential (primary) hypertension (5) Non-insulin dependent type 2 diabetes mellitus Status: Chronic Assessment & Plan: - Holding metformin at this time (6) Falls Status: Acute Assessment & Plan: - PT ordered Clinical Quality Measures DVT/VTE Risk/Contraindication: Risk Factor Score Per Nursin RFS Level Per Nursing on Admit: 4+=Very High AYE KEY MD Jan 28, 2020 21:24
[2020-01-28] MEDS: ENOXAPARIN 40 MG/0.4 ML (LOVENOX) SYR SC SCH (21:33)
--- NOTE | 2020-01-28 22:30 | NUR ---
Sindhu Villanueva (Daughter) and Abdulkadir Villanueva (grandson) called this RN asking about patient status and what the plan is. Both family member insisted that this RN put a note about the following: - Patient has only fallen once or twice in the 5 years that he has been living with them - They would not like to do any inpatient rehab for the patient. Patient was just in the inpatient rehab recently and per family - "it did not do anything to help him." If patient requires rehab, it will have to be home health or some other arrangement. Notified Dr. Valentine about patient family request. Dr. Valentine will call family in the morning after seeing patient.
--- NOTE | 2020-01-28 22:30 | NUR ---
Family also would like to have emergency contacts updated since original emergency contact Christine (sister) is . Added Abdulkadir Villanueva (grandson) as emergency contact - [phone]
--- NOTE | 2020-01-28 23:00 | NUR ---
Report given to TORO Youngblood.
[2020-01-29 00:24] VITALS: BP 126/78
[2020-01-29] MEDS: ceFAZolin 1,000 MG/SWFI 10 ML IV PUSH IV SCH ×4 (03:13→10:42)
[2020-01-29 04:00] VITALS: BP 156/75
[2020-01-29 05:59] LABS: BASOPHILS % (AUTO) 0 % (0-10); EOSINOPHILS # (AUTO) 0.4 10^3/uL (0.0-0.3); EOSINOPHILS % (AUTO) 5 % (0-10); HEMATOCRIT 36 % (40-54); HEMOGLOBIN 11.9 G/DL (13.3-17.7); LYMPHOCYTES % (AUTO) 27 % (12-44); MEAN CORPUSCULAR HEMOGLOBIN 28 PG (25-34); MEAN CORPUSCULAR HGB CONC 33 G/DL (32-36); MEAN CORPUSCULAR VOLUME 84 FL (80-99); MEAN PLATELET VOLUME 10.5 FL (7.4-10.4); MONOCYTES # (AUTO) 0.8 X 10^3 (0.0-1.0); MONOCYTES % (AUTO) 11 % (0-12); NEUTROPHILS # (AUTO) 4.1 X 10^3 (1.8-7.8); NEUTROPHILS % (AUTO) 56 % (42-75); PLATELET COUNT 174 10^3/uL (130-400); RED CELL DISTRIBUTION WIDTH 14.2 % (10.0-14.5); WHITE BLOOD COUNT 7.3 10^3/uL (4.3-11.0)
[2020-01-29 06:18] LABS: ALBUMIN 3.1 GM/DL (3.2-4.5)
[2020-01-29 06:19] LABS: CHLORIDE 109 MMOL/L (98-107); POTASSIUM 4.2 MMOL/L (3.6-5.0); SODIUM 137 MMOL/L (135-145)
[2020-01-29 06:20] LABS: CALCIUM 7.9 MG/DL (8.5-10.1)
[2020-01-29 06:21] LABS: GLUCOSE 129 MG/DL (70-105); TOTAL PROTEIN 6.2 GM/DL (6.4-8.2)
[2020-01-29 06:22] LABS: CARBON DIOXIDE 19 MMOL/L (21-32)
[2020-01-29 06:23] LABS: BILIRUBIN,TOTAL 0.5 MG/DL (0.1-1.0)
[2020-01-29 06:24] LABS: ALKALINE PHOSPHATASE 51 U/L (40-136)
[2020-01-29 06:25] LABS: CREATININE SERUM 0.98 MG/DL (0.60-1.30); GFR ESTIMATED > 60
[2020-01-29 06:26] LABS: BUN/CREATININE RATIO 11
[2020-01-29 06:28] LABS: ALANINE AMINOTRANSFERASE 13 U/L (0-55)
[2020-01-29 08:00] VITALS: BP 143/65
[2020-01-29] MEDS ORDERED: MONT10TA26 PO (11:23)
[2020-01-29] MEDS ORDERED: LORA10TA7 PO (11:23)
[2020-01-29] MEDS ORDERED: FLUT1DIS26 PO (11:23)
--- NOTE | 2020-01-29 11:27 | NUR ---
PT WAS NOT SURE OF HIS MEDICATIONS AND WANTED ME TO CALL HIS DAUGHTER IN LAW AMILCAR I SPOKE WITH AMILCAR AND WENT THRU THE EXT MED HISTORY TO COMPLETE THE MED REC D-I-L NAMED ALL HIS MEDICATIONS AND WAS ABLE TO TELL ME HOW PT TAKES THEM DWAINE INDICATED PT DOESNT TAKE ANY OTC MEDICATIONS
[2020-01-29 12:00] VITALS: BP 137/68
--- NOTE | 2020-01-29 12:00 | NUR ---
IRF Evaluation Order received to evaluate patient for the ARU. The ARU received a call from patient's DIL/DPOA, Sindhu Villanueva. Sindhu states she does not wish for the patient to admit to the unit. CM/SS notified. Thank you for this referral.
--- NOTE | 2020-01-29 14:05 | NUR ---
Pastoral care visit.
--- NOTE | 2020-01-29 14:11 | Physical Therapy Evaluation ---
PT Evaluation-General Medical Diagnosis Admission Date Jan 27, 2020 at 19:43 Medical Diagnosis: UTI/sepsis/fever Onset Date: Jan 27, 2020 Therapy Diagnosis Therapy Diagnosis: debility Height/Weight Height (Feet): 5 Height (Inches): 6.00 Weight (Pounds): 204 Precautions Precautions/Isolations: Fall Prevention, Standard Precautions Weight Bear Status Right Lower Extremity: Right Weight Bearing/Tolerated Left Lower Extremity: Left Weight Bearing/Tolerated Referral Physician: Serge Reason for Referral: Evaluation/Treatment Medical History Pertinent Medical History: CAD, COPD, DM, HTN, Renal Insufficiency, Smoking, TBI Current History ER from clinic secondary to UTI and fever Reviewed History: Yes Social History Home: Single Level Current Living Status: Other Family Prior Prior Level of Function SCALE: Activities may be completed with or without assistive devices. 1-Lvcwhjhqbt-foiwqkq completes the activity by him/herself with no assistance from a helper. 5-Set-up or Clean-up Assistance-helper sets up or cleans up; patient completes activity. [place] assists only prior to or following the activity. 4-Supervision or Touching Assistance-helper provides verbal cues and/or touching/steadying and/or contact guard assistance as patient completes activity. Assistance may be provided throughout the activity or intermittently. 3-Partial/Moderate Assistance-helper does LESS THAN HALF the effort. [place] lifts, holds or supports trunk or limbs, but provides less than half the effort. 2-Substantial/Maximal Assistance-helper does MORE THAN HALF the effort. [place] lifts or holds trunk or limbs and provides more than half the effort. 6-Hqwuowzkv-qovwdo does ALL the effort. Patient does none of the effort to complete the activity. Or, the assistance of 2 or more helpers is required for the patient to complete the activity. If activity was not attempted, code reason: 7-Patient Refused. 9-Not Applicable-not attempted and the patient did not perform the activity before the current illness, exacerbation or injury. 10-Not Attempted due to Environmental Limitations-(lack of equipment, weather restraints, etc.). 88-Not Attempted due to Medical Conditions or Safety Concerns. Bed Mobility: 6 Transfers (B,C,W/C): 6 Gait: 6 Stairs: 6 Indoor Mobility (Ambulation): Independent Stairs: Independent Prior Devices Use: None PT Evaluation-Current Subjective Family present and agrees to PT. Objective Patient Orientation: Confused Sensory Vision: Functional Sensation Right Lower Extremit: Intact Sensation Left Lower Extremity: Intact Transfers Roll Left to Right (QC): 6 Sit to Lying (QC): 6 Lying to Sitting/Side of Bed(Q: 6 Sit to Stand (QC): 6 Gait Does the Patient Walk?: Yes Mode of Locomotion: Walk Anticipated Mode of Locomotion: Walk Walk 10 feet (QC): 6 Walk 50 ft with 2 Turns(QC): 6 Walk 150 ft (QC): 6 Distance: >800' Gait Assistive Device: None Comments/Gait Description WBOS Balance Sitting Static: Normal Sitting Dynamic: Normal Standing Static: Normal Standing Dynamic: Normal Assessment/Needs 74 y.o. male, is currently at his independent PLOF with all gross motor skills. Patient's family reports he is at his PLOF as well. No skilled PT indicated. SW and RN notified. Rehab Potential: Fair PT Plan Treatment/Plan Treatment Plan: Discontinue PT, goals met Treatment Duration: Jan 29, 2020 Frequency: 1 time per week Estimated Hrs Per Day: .25 hour per day Discharge Recommendations Therapy Discharge Recommendati: Home & Family Time/GCodes Time In: 1337 Time Out: 1347 Total Billed Treatment Time: 10 Total Billed Treatment 1 visit [facility]LowC 10min SHAUNA GUARDADO PT Jan 29, 2020 14:11
--- NOTE | 2020-01-29 14:23 | NUR ---
CM/ASHIA visited with the patient for discharge planning. Plan: The patient will return home with his daughter DARIELA and grandson and participate in outpatient physical therapy. Physical Therapy: The patients DPJOSE chose [facility]. FLORIDALMA/ASHIA called and made an appointment for the patient on Tuesday at 12:15 p.m. FLORIDALMA/ASHIA informed them of [facility]'s regulations regarding covid. The patients grandson verbalized understanding. The patients grandson stated that the patient will be moving to [place] in a house right next door to them next week. The patient daughter and DPJOSE takes care of the patient during the day and her son takes care of him during the night. They stated they will not let him go into inpatient rehab. Therefore, out patient physical therapy was set up. No further needs at this time. Addendum: 01/29/20 at 1530 by WESLEY REYEZ [facility] FLORIDALMA/ASHIA faxed face sheet, H&P, Insurance, Meds, and script to [facility] [phone].
--- NOTE | 2020-01-29 15:04 | Discharge Summary ---
Diagnosis/Chief Complaint Date of Admission Jan 27, 2020 at 19:43 Date of Discharge Discharge Diagnosis Problems/Diagnosis: (1) Sepsis Assessment & Plan: - Received IVF protocol, decreased IVFs this AM, good PO intake, Sepsis Resolved, Continue Rocephin, Culture Ecoli, pending sensitivities Qualifiers: Qualified Codes: A41.9 - Sepsis, unspecified organism Status: Acute (2) UTI (urinary tract infection) Qualifiers: Qualified Codes: N30.01 - Acute cystitis with hematuria Status: Acute (3) Facial hematoma Qualifiers: Qualified Codes: S00.83XA - Contusion of other part of head, initial encounter Status: Acute (4) Hypertension Assessment & Plan: - Holding meds due to normocytic blood pressures Qualifiers: Qualified Codes: I10 - Essential (primary) hypertension Status: Chronic (5) Non-insulin dependent type 2 diabetes mellitus Assessment & Plan: - Holding metformin at this time Status: Chronic (6) Falls Assessment & Plan: - PT ordered Status: Acute Chief Complaint/HPI Chief Complaint/HPI 74 yo M that has been falling at home and was having increasing weakness. Patient arrived at ER with UTI. Grandson states that he had been more forgetful and confused the last few days. Patient states that on Tuesday he started having blood in his urine and it was painful to urinate. Denies ever having these symptoms in the past. Patient also has DM which is treated with metformin and HTN which he is treated with norvasc. States that since getting the fluids he is feeling better. Discharge Summary-Simple/Stand Consultations Discharge Physical Examination Allergies: Coded Allergies: No Known Drug Allergies (Unverified , 01/14/15) Vitals & I&Os Vital Sign - Last 12Hours Date Time Temp Pulse Resp B/P (MAP) Pulse Ox O2 Delivery O2 Flow Rate FiO2 01/29/20 12:00 36.7 68 20 137/68 (91) 96 Room Air Intake and Output 01/29/20 00:00 Intake Total 1900 ml Output Total 700 ml Balance 1200 ml Hospital Course See final discharge diagnosis. Discharge Instructions to patient/family Please see electronic discharge instructions given to patient. Discharge Medications Reviewed and agree with Discharge Medication list on patient's Discharge Instruction sheet Clinical Quality Measures DVT/VTE Risk/Contraindication: Risk Factor Score Per Nursin RFS Level Per Nursing on Admit: 4+=Very High AYE KEY MD Jan 29, 2020 15:04
[2020-01-29] MEDS ORDERED: SULF1TAB35 PO (15:13)
--- NOTE | 2020-01-29 15:14 | Discharge Summary ---
Discharge [facility] Reconcile Patient Problems Problems Reviewed?: Yes Discharge Medications New, Converted or Re-Newed RX: Transmitted to Pharmacy New Medications: Sulfamethoxazole/Trimethoprim (Bactrim Ds Tablet) 1 Each Tablet 1 EACH PO BID, #10 TAB Continued Medications: Amlodipine Besylate (Amlodipine Besylate) 10 Mg Tablet 10 MG PO DAILY, TAB Fluticasone/Salmeterol (Advair 250-50 Diskus) 1 Each Blst.w.dev 1 PUFF PO BID PRN for SHORTNESS OF BREATH, EACH Loratadine (Loratadine) 10 Mg Tablet 10 MG PO DAILY, TAB Metformin HCl (Metformin HCl ER) 500 Mg Tab.er.24h 500 MG PO DAILY, TAB Montelukast Sodium (Montelukast Sodium) 10 Mg Tablet 10 MG PO DAILY, TAB Simvastatin (Simvastatin) 40 Mg Tablet 40 MG PO DAILY, TAB Patient Instructions Goal/Follow Up Appt: F.u with PCP in 1 week Will need referral with Dr Villavicencio in 14 days Activity & Diet Discharge Diet: ADA Diet Activity as Tolerated: Yes Orders-Post D/C & Referrals Outpatient PT Referral to AYE Lopez MD Jan 29, 2020 15:14
[2020-01-29 15:40] VITALS: BP 137/68
== END 2020-01-29 15:11 | disposition designated cancer center or children's hospital (05) ==
LOC: EDUNIT# 17:12 → ER 17:14 → UNDOADMOB 19:43 → 4TH 19:43 → UNDODISOB 01-29 15:40
PROVIDERS: ADMIT Internal Medicine; ATTEND Internal Medicine
DX: A41.9 Sepsis, unspecified organism (principal); N30.01 Acute cystitis with hematuria; J44.9 Chronic obstructive pulmonary disease, unspecified; I25.10 Atherosclerotic heart disease of native coronary artery without angina pectoris; E78.00 Pure hypercholesterolemia, unspecified; I10 Essential (primary) hypertension; M19.90 Unspecified osteoarthritis, unspecified site; M54.9 Dorsalgia, unspecified; G89.29 Other chronic pain; E11.9 Type 2 diabetes mellitus without complications; N19 Unspecified kidney failure; S00.83XA Contusion of other part of head, initial encounter; F17.210 Nicotine dependence, cigarettes, uncomplicated; Z79.84 Long term (current) use of oral hypoglycemic drugs; Z79.899 Other long term (current) drug therapy; Z79.82 Long term (current) use of aspirin; Z90.89 Acquired absence of other organs; Z86.73 Personal history of transient ischemic attack (TIA), and cerebral infarction without residual deficits; Z79.891 Long term (current) use of opiate analgesic
CPT/HCPCS: 36415; 71045; 80053; 81000; 83605; 85007; 85025; 85027; 85610; 85730; 86141; 87040; 87077; 87088; 87186; G0378

== ENCOUNTER 2020-07-29 18:24 | Inpatient (IN) | payer MEDICARE, MEDICAID ==
[~2020-07-29] VITALS: Ht 172.7 cm; Wt 96.5 kg
[~2020-07-29 18:24] MED LIST changes: +AMLO-251 PO; -AMLO10TA7 PO; +ASPI-1238 PO; -ASPI-983 PO; +FLUT1DIS26 PO; -MONT10TA26 PO; +MONT10TA97 PO; +SULF1TAB35 PO
[2020-07-29] MEDS ORDERED: ADVAIR HFA 115/21 MCG INHALER 8 GM IH ONE (18:42)
[2020-07-29] MEDS ORDERED: ALBUTEROL/IPRATROP (COMBIVENT RESPIMAT) 4 GM INHALER ONE (18:42)
--- NOTE | 2020-07-29 18:54 | ED Respiratory ---
General Chief Complaint: Respiratory Problems Stated Complaint: FEVER Nursing Triage Note: pt arrives by EMS with c/o SOB, cough, chills, body aches, and EDWARDS. pt has been on quarantine for covid exposure x 1 week and had negative covid test 3 days ago. 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, AND IS UNABLE TO GIVE MUCH INFORMATION ABOUT CURRENT PROBLEM OR ANY PAST MEDICAL HI STORY) History of Present Illness Date Seen by Provider: Jul 29, 2020 Time Seen by Provider: 18:25 Initial Comments PT ARRIVES VIA EMS FROM HOME PT STATES HE LIVES WITH HIS [id number] REPORTS THAT PT WAS TESTED FOR COVID-19 3 DAYS AGO AND WAS NEGATIVE PT IS UNABLE TO STATE HOW LONG HE HAS BEEN SICK AND CANNOT STATE ANY OF HIS SYMPTOMS PER EMS REPORT, PT HAS HAD FEVER, CHILLS, COUGH, CONGESTION, SHORTNESS OF BREATH, HEADACHE PER EMS REPORT, HE HAS BEEN ON QUARANTINE FOR COVID-19 FOR THE LAST WEEK, BUT IS UNKNOWN IF HE HAS HAD AN EXPOSURE TO COVID-19. NO OTHER INFORMATION IS OBTAINABLE ON ARRIVAL. RN HAS NOW TALKED WITH PT'S [id number], AND SHE HAS REPORTED THAT PT HAS BEEN ON QUARANTINE BECAUSE SOMEONE IN HIS APARTMENT TESTED POSITIVE, THEN HAD A COVID TEST 3 DAYS AGO "JUST TO GET CHECKED". PT DID NOT HAVE ANY SYMPTOMS UNTIL TODAY. [facility] Allergies and Home Medications Allergies Coded Allergies: No Known Drug Allergies (Unverified , 01/14/15) Home Medications Acetaminophen 500 Mg Tablet, 1,000 MG PO Q6H PRN for PAIN-MILD (1-4) OR TEMPATURE, (Reported) Amlodipine Besylate 10 Mg Tablet, 10 MG PO DAILY, (Reported) Loratadine 10 Mg Tablet, 10 MG PO DAILY, (Reported) Losartan Potassium 50 Mg Tablet, 50 MG PO DAILY, (Reported) Metformin HCl 500 Mg Tab.er.24h, 500 MG PO BID, (Reported) Montelukast Sodium 10 Mg Tablet, 10 MG PO DAILY, (Reported) Simvastatin 40 Mg Tablet, 40 MG PO HS, (Reported) Patient Home Medication List Home Medication List Reviewed: Yes Review of Systems Review of Systems Constitutional: chills, fever Respiratory: cough Musculoskeletal: see HPI Psychiatric/Neurological: Other (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) Past Xkwvcod-Jkrefd-Wptqos Hx Patient Social History Smoking Status: Current Everyday Smoker Type Used: Cigarettes Recent Foreign Travel: No Contact w/Someone Who Travel: No Recent Infectious Disease Expo: Yes Recent Hopitalizations: No ([facility]) Immunizations Up To Date Date of Pneumonia Vaccine: Feb 03, 2018 Seasonal Allergies Seasonal Allergies: No Past Medical History Surgeries: Yes (BRAIN ANEURYSM REPAIR X 2; LEFT ROTATOR CUFF REPAIR 03/2015) Adenoidectomy, Neurological, Orthopedic Respiratory: Yes COPD Currently Using CPAP: No Currently Using BIPAP: No Cardiac: Yes Coronary Artery Disease, High Cholesterol, Hypertension Neurological: Yes (BRAIN BLEED/BRAIN ANEURYSM REPAIR X 2-METAL CLIPS;COGNITIVE IMPAIRMENT) Stroke Genitourinary: Yes (UTI SEPSIS) Kidney Infection, Bladder Infection, Kidney Stones, Renal Failure Gastrointestinal: No Musculoskeletal: Yes (MUSCLE WEAKNESS;L ROTATOR CUFF REPAIR 03/2015;L HAND FRACTURE) Arthritis, Chronic Back Pain, Fractures Endocrine: Yes Diabetes, Non-Insulin dep HEENT: Yes Cataract Cancer: No Psychosocial: Yes (COGNITIVE IMPAIRMENT) Integumentary: No Blood Disorders: No Family Medical History Patient reports no known family medical history. No Pertinent Family Hx Physical Exam Vital Signs - First Documented 07/29/20 07/29/20 18:25 18:51 Temp 36.7 Pulse 93 Resp 26 B/P (MAP) 142/75 (97) Pulse Ox 93 O2 Delivery Room Air O2 Flow Rate 2.00 Capillary Refill : Less Than 3 Seconds Height: 5'6.00" Weight: 204lbs. oz. 92.027372xx; 28.00 BMI Method:Stated General Appearance: WD/WN, no apparent distress HEENT: PERRL/EOMI, normal ENT inspection, pharynx normal Neck: non-tender, full range of motion, supple, normal inspection Respiratory: no respiratory distress, no accessory muscle use, decreased breath sounds, wheezing, other (SHALLOW BREATHING, SLIGHTLY TACHYPNEIC. 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, no motor/sensory deficits, alert, normal mood/affect, other (ORIENTED TO PERSON, KNOWS HE IS IN HOSPITAL, CONFUSED TO TIME, SITUATION AND EXTREMELY POOR MEMORY) Skin: normal color, warm/dry; No rash Focused Exam Lactate Level 07/29/20 18:40: Lactic Acid Level 1.06 Lactic Acid Level Laboratory Tests Test 07/29/20 18:40 Lactic Acid Level 1.06 MMOL/L (0.50-2.00) Progress/Results/Core Measures Suspected Sepsis Recent Fever Within 48 Hours: Yes Infection Criteria Present: Suspected New Infection New/Unexplained Altered Menta: No Sepsis Screen: Possible Severe Sepsis Risk SIRS Temperature: Pulse: 93 Respiratory Rate: 26 Laboratory Tests 07/29/20 18:40: White Blood Count 10.5 Blood Pressure 142 /75 Mean: 97 07/29/20 18:40: Lactic Acid Level 1.06 Laboratory Tests 07/29/20 18:40: INR Comment 0.9, Platelet Count 203, Total Bilirubin 0.4 Results/Orders Lab Results Laboratory Tests Test 07/29/20 18:40 07/29/20 20:34 Range/Units White Blood Count 10.5 4.3-11.0 10^3/uL Red Blood Count 4.90 4.30-5.52 10^6/uL Hemoglobin 13.3 13.3-17.7 g/dL Hematocrit 41 40-54 % Mean Corpuscular Volume 84 80-99 fL Mean Corpuscular Hemoglobin 27 25-34 pg Mean Corpuscular Hemoglobin Concent 32 32-36 g/dL Red Cell Distribution Width 14.5 10.0-14.5 % Platelet Count 203 130-400 10^3/uL Mean Platelet Volume 10.0 9.0-12.2 fL Immature Granulocyte % (Auto) 0 % Neutrophils (%) (Auto) 69 42-75 % Lymphocytes (%) (Auto) 21 12-44 % Monocytes (%) (Auto) 8 0-12 % Eosinophils (%) (Auto) 1 0-10 % Basophils (%) (Auto) 0 0-10 % Neutrophils # (Auto) 7.3 1.8-7.8 10^3/uL Lymphocytes # (Auto) 2.2 1.0-4.0 10^3/uL Monocytes # (Auto) 0.8 0.0-1.0 10^3/uL Eosinophils # (Auto) 0.1 0.0-0.3 10^3/uL Basophils # (Auto) 0.0 0.0-0.1 10^3/uL Immature Granulocyte # (Auto) 0.0 0.0-0.1 10^3/uL Erythrocyte Sedimentation Rate 58 H 0-30 MM/HR Prothrombin Time 13.0 12.2-14.7 SEC INR Comment 0.9 0.8-1.4 Activated Partial Thromboplast Time 34 24-35 SEC D-Dimer 7.80 H 0.00-0.49 UG/ML Sodium Level 136 135-145 MMOL/L Potassium Level 4.5 3.6-5.0 MMOL/L Chloride Level 103 98-107 MMOL/L Carbon Dioxide Level 19 L 21-32 MMOL/L Anion Gap 14 5-14 MMOL/L Blood Urea Nitrogen 14 7-18 MG/DL Creatinine 1.15 0.60-1.30 MG/DL Estimat Glomerular Filtration Rate > 60 BUN/Creatinine Ratio 12 Glucose Level 127 H 70-105 MG/DL Lactic Acid Level 1.06 0.50-2.00 MMOL/L Calcium Level 8.6 8.5-10.1 MG/DL Corrected Calcium 8.7 8.5-10.1 MG/DL Magnesium Level 1.6 1.6-2.4 MG/DL Total Bilirubin 0.4 0.1-1.0 MG/DL Aspartate Amino Transf (AST/SGOT) 21 5-34 U/L Alanine Aminotransferase (ALT/SGPT) 25 0-55 U/L Alkaline Phosphatase 56 40-136 U/L Lactate Dehydrogenase 242 H 125-220 U/L Total Creatine Kinase 150 30-200 U/L Creatine Kinase MB 1.5 <6.6 NG/ML Myoglobin 233.5 H 10.0-92.0 NG/ML Troponin I < 0.028 <0.028 NG/ML C-Reactive Protein High Sensitivity 2.73 H 0.00-0.50 MG/DL B-Type Natriuretic Peptide 10.4 <100.0 PG/ML Total Protein 7.6 6.4-8.2 GM/DL Albumin 3.9 3.2-4.5 GM/DL Procalcitonin 0.10 H <0.10 NG/ML Coronavirus 2019 ([facility]) Positive H Negative Urine Color YELLOW Urine Clarity CLEAR Urine pH 6.0 5-9 Urine Specific [place] 1.020 1.016-1.022 Urine Protein 1+ H NEGATIVE Urine Glucose (UA) NEGATIVE NEGATIVE Urine Ketones NEGATIVE NEGATIVE Urine Nitrite NEGATIVE NEGATIVE Urine Bilirubin NEGATIVE NEGATIVE Urine Urobilinogen 0.2 < = 1.0 MG/DL Urine Leukocyte Esterase NEGATIVE NEGATIVE Urine RBC (Auto) TRACE-L NEGATIVE Urine RBC 2-5 H /HPF Urine WBC NONE /HPF Urine Crystals PRESENT H /LPF Urine Amorphous Sediment MOD SO URATES H /LPF Urine Bacteria TRACE /HPF Urine Casts NONE /LPF Urine Mucus NEGATIVE /LPF Urine Culture Indicated NO Micro Results Microbiology 07/29/20 Influenza Types A,B Antigen (ARLENE) - Final, Complete 07/29/20 Blood Culture - Preliminary, Resulted No growth My Orders Orders - SUSAN SMITH DO Cbc With Automated Diff (07/29/20 18:26) Comprehensive Metabolic Panel (07/29/20 18:26) Fibrin Degradation Products (07/29/20 18:26) Procalcitonin (Pct) (07/29/20 18:26) Hs C Reactive Protein (07/29/20 18:26) Erythrocyte Sedimentation Rate (07/29/20 18:26) LDH (07/29/20 18:26) Blood Culture (07/29/20 18:26) Ekg Tracing (07/29/20 18:26) Influenza A And B Antigens (07/29/20 18:26) Chest 1 View, Ap/Pa Only (07/29/20 18:26) Covid 19 Inhouse Test (07/29/20 18:26) Ed Iv/Invasive Line Start (07/29/20 18:26) Monitor-Rhythm Ecg Trace Only (07/29/20 18:26) BNP (07/29/20 18:26) Creatine Kinase (07/29/20 18:26) Creatine Kinase Mb (07/29/20 18:26) Lactic Acid Analyzer (07/29/20 18:26) Magnesium (07/29/20 18:26) Protime With Inr (07/29/20 18:26) Partial Thromboplastin Time (07/29/20 18:26) Ua Culture If Indicated (07/29/20 18:26) Myoglobin Serum (07/29/20 18:26) Troponin I (07/29/20 18:26) Fluticasone/Salmeterol 115/21 (Advair Hf (07/29/20 18:42) Dexamethasone Injection (Decadron Inje (07/29/20 18:42) Albuterol/Ipratropium Inhaler (Combivent (07/29/20 18:42) Ct Angio Chest W (07/29/20 19:53) Ceftriaxone For Iv Use (Rocephin For I (07/29/20 20:00) Azithromycin Injection (Zithromax Inject (07/29/20 20:00) Catheter(Urinary) Insert & Ass 03,15 (07/29/20 20:05) Iohexol Injection (Omnipaque 350 Mg/Ml 1 (07/29/20 20:45) Received Contrast (Hold Metformin- Contr (07/29/20 20:45) Ns (Ivpb) (Sodium Chloride 0.9% Ivpb Bag (07/29/20 20:45) Oseltamivir 75 Mg Capsule (Tamiflu 75 (07/29/20 20:45) Medications Given in ED Vital Signs/I&O 07/29/20 07/29/20 18:25 18:51 Temp 36.7 Pulse 93 87 Resp 26 20 B/P (MAP) 142/75 (97) 129/73 Pulse Ox 93 97 O2 Delivery Room Air Nasal Cannula O2 Flow Rate 2.00 Capillary Refill : Less Than 3 Seconds 2 Blood Pressure Mean: 97 Progress Note : Progress Note PLACED IN ISOLATION ROOM PPE WORN AT ALL TIMES COVID-19 TESTING PERFORMED GIVEN INHALER TREATMENT WITH COMBIVENT AND ADVAIR. ALSO GIVEN DECADRON IV O2 SATS 93-94% ON ROON AIR. PLACED ON O2 AT 2L/NC WITH IMPROVEMENT IN O2 SATS AND RESPIRATORY EFFORT IMPROVED--BREATHING IS LESS SHALLOW, AND NORMAL RESPIRATORY RATE. NO DETERIORATION IN PT'S CONDITION DURING ER STAY ECG Initial ECG Impression Date: Jul 29, 2020 Initial ECG Impression Time: 18:31 Initial ECG Rate: 87 Initial ECG Rhythm: Normal Sinus Diagnostic Imaging Comments CXR--PER RADIOLOGIST REPORT AT 1953 FINDINGS: There are bilateral interstitial and alveolar opacities present within the lungs most significant in the mid left lung and at the right base suggesting a multifocal pneumonia. There also are abnormal opacities in the right suprahilar location. There is no significant effusion. There is no pneumothorax. Heart size and mediastinal contours appear appropriate. IMPRESSION: Multifocal interstitial and alveolar opacity within the lungs suggesting a bilateral multifocal pneumonia. CT CHEST ANGIOGRAM, PER RADIOLOGIST REPORT AT 2108 IMPRESSION: 1. No CT angiographic evidence of pulmonary embolism. 2. Thoracic aorta demonstrates no dissection or aneurysm. 3. Patchy groundglass alveolar infiltrates within the lungs are most compatible with a multifocal pneumonia which would include Covid 19 given patient's reported exposure. 4. More dense consolidation within the medial aspect of the right upper lobe. While this could reflect more focal consolidation, the possibility of an underlying lung cancer is also considered given the patient's underlying risk factors of emphysema. This should be reassessed on a short-term interval follow-up and if a persistent finding, a PET CT or biopsy should be considered Next number no pathologic adenopathy evident Next number multiple remote right-sided rib fractures. No acute or suspicious osseous abnormality demonstrated. Reviewed: Reviewed by Me Departure Communication (Admissions) Family Conversation 2027--SPOKE WITH [id number], AND UPDATE ON PT'S CONDITION GIVEN. SHE NOW REPORTS THAT PT LIVES WITH HER, AND HER 4 FOSTER DAUGHTERS, AND 2 OF THEM HAVE HAD COVID IN THE LAST 2 WEEKS, AND STATES ONE OF THEM WAS BACK TO SCHOOL LAST WEEK AND ONE OF THEM WENT BACK TO SCHOOL YESTERDAY. SHE STATES THAT THEY ALL WERE TESTED ON 07/16/20, AND ONLY THE 2 GIRLS TESTED POSITIVE. SHE REPORTS THAT PT'S SYMPTOMS DID NOT BEGIN UNTIL TODAY. 2034--SPOKE WITH DR. GAITAN, HOSPITALIST, ACCEPTS PT FOR ADMIT. ORDERS NOTED. Impression Primary Impression: Pneumonia due to COVID-19 virus Additional Impressions: Influenza B COPD (chronic obstructive pulmonary disease) NIDDM HTN (hypertension) Cognitive impairment HX OF CEREBRAL ANEURYSM RUPTURE WITH REPAIR Disposition: ADMITTED INPATIENT Condition: Stable Admissions Decision to Admit Reason: Admit from ER (General) Decision to Admit/Date: Jul 29, 2020 Time/Decision to Admit Time: 20:35 Departure-Patient Inst. Referrals: [facility] (PCP) Primary Care Physician DEREK VEE (Family) Primary Care Physician SUSAN SMITH DO Jul 29, 2020 18:54
[2020-07-29 19:10] LABS: BASOPHILS % (AUTO) 0 % (0-10); EOSINOPHILS # (AUTO) 0.1 10^3/uL (0.0-0.3); EOSINOPHILS % (AUTO) 1 % (0-10); HEMATOCRIT 41 % (40-54); HEMOGLOBIN 13.3 g/dL (13.3-17.7); LYMPHOCYTES # (AUTO) 2.2 10^3/uL (1.0-4.0); LYMPHOCYTES % (AUTO) 21 % (12-44); MEAN CORPUSCULAR HEMOGLOBIN 27 pg (25-34); MEAN CORPUSCULAR HGB CONC 32 g/dL (32-36); MEAN CORPUSCULAR VOLUME 84 fL (80-99); MONOCYTES # (AUTO) 0.8 10^3/uL (0.0-1.0); MONOCYTES % (AUTO) 8 % (0-12); NEUTROPHILS # (AUTO) 7.3 10^3/uL (1.8-7.8); NEUTROPHILS % (AUTO) 69 % (42-75); PLATELET COUNT 203 10^3/uL (130-400); WHITE BLOOD COUNT 10.5 10^3/uL (4.3-11.0)
[2020-07-29 19:25] LABS: ALBUMIN 3.9 GM/DL (3.2-4.5); CHLORIDE 103 MMOL/L (98-107); POTASSIUM 4.5 MMOL/L (3.6-5.0); SODIUM 136 MMOL/L (135-145)
[2020-07-29 19:26] LABS: ERYTHROCYTE SEDIMENTATION RATE 58 MM/HR (0-30)
[2020-07-29 19:27] LABS: CALCIUM 8.6 MG/DL (8.5-10.1)
[2020-07-29 19:28] LABS: GLUCOSE 127 MG/DL (70-105); TOTAL PROTEIN 7.6 GM/DL (6.4-8.2)
[2020-07-29 19:29] LABS: CARBON DIOXIDE 19 MMOL/L (21-32)
[2020-07-29 19:30] LABS: BILIRUBIN,TOTAL 0.4 MG/DL (0.1-1.0)
[2020-07-29 19:31] LABS: ALKALINE PHOSPHATASE 56 U/L (40-136); CREATININE SERUM 1.15 MG/DL (0.60-1.30)
[2020-07-29 19:32] LABS: GFR ESTIMATED > 60
[2020-07-29 19:33] LABS: BUN/CREATININE RATIO 12
[2020-07-29 19:34] LABS: ALANINE AMINOTRANSFERASE 25 U/L (0-55); MAGNESIUM 1.6 MG/DL (1.6-2.4)
[2020-07-29 19:35] LABS: CREATINE KINASE 150 U/L (30-200)
[2020-07-29 19:38] LABS: FIBRIN DEGRADATION PRODUCTS 7.8 UG/ML (0.00-0.49); INR 0.9 (0.8-1.4)
[2020-07-29 19:47] LABS: CREATINE KINASE MB 1.5 NG/ML (<6.6)
--- NOTE | 2020-07-29 19:47 | Diagnostic Imaging Report ---
INDICATION: Cough. Shortness of breath. Comparison is made to the prior from 01/27/2020. FINDINGS: There are bilateral interstitial and alveolar opacities present within the lungs most significant in the mid left lung and at the right base suggesting a multifocal pneumonia. There also are abnormal opacities in the right suprahilar location. There is no significant effusion. There is no pneumothorax. Heart size and mediastinal contours appear appropriate. IMPRESSION: Multifocal interstitial and alveolar opacity within the lungs suggesting a bilateral multifocal pneumonia. Dictated by: Dictated on workstation # [id number]
[2020-07-29] MEDS ORDERED: cefTRIAXone FOR IV USE 1,000 MG in WATER (STERILE) FOR INJECTION 10 ML IV ONE (20:00)
[2020-07-29] MEDS ORDERED: AZITHROMYCIN INJECTION 500 MG in NS (IVPB) 250 ML IV ONE (20:00)
[2020-07-29 20:43] LABS: BILIRUBIN,URINE NEGATIVE (NEGATIVE); CLARITY,URINE CLEAR; COLOR,URINE YELLOW; GLUCOSE, URINE (UA) NEGATIVE (NEGATIVE); KETONES,URINE NEGATIVE (NEGATIVE); LEUKOCYTE ESTERASE ,URINE NEGATIVE (NEGATIVE); NITRITE,URINE NEGATIVE (NEGATIVE); PROTEIN,URINE 1+ (NEGATIVE)
[2020-07-29] MEDS ORDERED: ENOXAPARIN 100 MG/1 ML (LOVENOX) SYR SC ONE (20:45)
[2020-07-29] MEDS ORDERED: IOHEXOL 350 MG/ML 100 ML (OMNIPAQUE 350) VIAL IV ONE (20:45)
[2020-07-29] MEDS ORDERED: HOLD METFORMIN - RECEIVED CONTRAST 20 ML VIAL IV SCH (20:45)
[2020-07-29] MEDS ORDERED: OSELTAMIVIR 75 MG (TAMIFLU) CAPSULE PO ONE (20:45)
[2020-07-29] MEDS ORDERED: NS 100 ML (IVPB) BAG IV ONE (20:45)
[2020-07-29 21:07] LABS: AMORPHOUS SEDIMENT,UR MOD AMOR URATES /LPF; BACTERIA,URINE TRACE /HPF
--- NOTE | 2020-07-29 21:08 | Diagnostic Imaging Report ---
PROCEDURE: CT angiography of the chest with contrast. TECHNIQUE: Multiple contiguous axial images were obtained through the chest after uneventful bolus administration of intravenous contrast. 3D reconstructed CTA MIP acquisitions were also performed. Auto Exposure Controls were utilized during the CT exam to meet ALARA standards for radiation dose reduction. INDICATION: Cough and shortness of breath. Evaluate for pulmonary embolism. CORRELATION is made with a chest radiograph performed earlier in the same day. FINDINGS: There is adequate opacification of the pulmonary arterial system for diagnostic evaluation. There are no findings of a pulmonary artery filling defect to suggest pulmonary embolism. There are atherosclerotic calcifications within the aortic arch without dissection or aneurysm. Coronary calcifications are noted. There is no pericardial effusion. The lungs demonstrate multifocal regions of alveolar opacification. Within the left upper lobe and within the posterior aspect of the lower lobes are regions of groundglass opacity. There is more dense consolidation present within the medial aspect of the right upper lobe. This region measures up to 2.7 x 2.4 cm. There also is some fatty thickening demonstrated of the pleura within the lateral aspect of the right chest. This is a benign process with macroscopic fat. Findings are superimposed on background features of underlying centrilobular emphysema. There are multiple small but non-pathologically enlarged mediastinal lymph nodes. There is no hilar adenopathy or axillary adenopathy. The upper abdomen demonstrates a small right renal cyst. There is no acute upper abdominal abnormality. There are no findings of an acute or suspicious osseous abnormality within the thoracic spine. There are multiple remote right-sided rib fractures. IMPRESSION: 1. No CT angiographic evidence of pulmonary embolism. 2. Thoracic aorta demonstrates no dissection or aneurysm. 3. Patchy groundglass alveolar infiltrates within the lungs are most compatible with a multifocal pneumonia which would include Covid 19 given patient's reported exposure. 4. More dense consolidation within the medial aspect of the right upper lobe. While this could reflect more focal consolidation, the possibility of an underlying lung cancer is also considered given the patient's underlying risk factors of emphysema. This should be reassessed on a short-term interval follow-up and if a persistent finding, a PET CT or biopsy should be considered. 5. No pathologic adenopathy evident. 6. Multiple remote right-sided rib fractures. 7. No acute or suspicious osseous abnormality demonstrated. Dictated by: Dictated on workstation # [id number]
[2020-07-30] VITALS (11 sets, daily range): BP systolic 134–153; BP diastolic 68–153
--- NOTE | 2020-07-30 | NUR ---
GAB ARCHIBALD admitted to room 422-1, with an admitting diagnosis of COVID, PNA, NIDDM, INFLUENZA B, COPD, on 07/29/20 from [facility] via , accompanied by STAFF.GAB ARCHIBALD introduced to surroundings, call light, bed controls, phone, TV, temperature control, lights, meal times, smoking policy, visitor policy, side rail policy, bathrooms and showers. Patient Rights given to patient in the handbook. GAB ARCHIBALD verbalizes understanding that [facility] is not responsible for the loss or damage to any personal effects or valuables that are kept in the patients possession during their hospitalization.
[2020-07-30] MEDS ORDERED: IBUPROFEN 800 MG (MOTRIN) TAB PO PRN (01:00)
[2020-07-30] MEDS ORDERED: ONDANSETRON 4 MG/2 ML (SDV) Z0FRAN IVP PRN (01:00)
[2020-07-30] MEDS: ACETAMINOPHEN 500 MG TAB (TYLENOL) PO PRN ×3 (01:31→21:52)
[2020-07-30] MEDS: 1/2 NS IV SOLUTION 1,000 ML IV SCH ×2 (01:42→12:49)
--- NOTE | 2020-07-30 03:33 | NUR ---
ALBUTEROL INHALER 4PUFFS Q4 AND Q2 PRN IS AND AEROBIKKA QID INITIATE 02 2-4L TO KEEP SAT GREATER THAN 94%. RT TO REASSESS OR REEVALUATE IN 72HOURS OR NEEDED Addendum: 07/30/20 at 0334 by RAMAN JEONG RT Amended: Links added.
[2020-07-30] MEDS ORDERED: RT-ALBUTEROL INHALER HFA (VENTOLIN HFA) 18 GM IH PRN (03:45)
[2020-07-30 05:47] LABS: BASOPHILS % (AUTO) 0 % (0-10); EOSINOPHILS % (AUTO) 0 % (0-10); HEMATOCRIT 39 % (40-54); HEMOGLOBIN 12.5 g/dL (13.3-17.7); LYMPHOCYTES # (AUTO) 1.3 10^3/uL (1.0-4.0); LYMPHOCYTES % (AUTO) 22 % (12-44); MEAN CORPUSCULAR HEMOGLOBIN 27 pg (25-34); MEAN CORPUSCULAR HGB CONC 32 g/dL (32-36); MEAN CORPUSCULAR VOLUME 85 fL (80-99); MEAN PLATELET VOLUME 9.8 fL (9.0-12.2); MONOCYTES # (AUTO) 0.2 10^3/uL (0.0-1.0); MONOCYTES % (AUTO) 3 % (0-12); NEUTROPHILS # (AUTO) 4.4 10^3/uL (1.8-7.8); NEUTROPHILS % (AUTO) 75 % (42-75); PLATELET COUNT 187 10^3/uL (130-400); WHITE BLOOD COUNT 5.9 10^3/uL (4.3-11.0)
[2020-07-30 05:59] LABS: ALBUMIN 3.8 GM/DL (3.2-4.5)
[2020-07-30 06:00] LABS: CHLORIDE 104 MMOL/L (98-107); POTASSIUM 4.2 MMOL/L (3.6-5.0); SODIUM 135 MMOL/L (135-145)
[2020-07-30] MEDS ORDERED: RT-ALBUTEROL INHALER HFA (VENTOLIN HFA) 18 GM IH SCH (06:00)
[2020-07-30 06:01] LABS: CALCIUM 8.3 MG/DL (8.5-10.1)
[2020-07-30 06:02] LABS: GLUCOSE 200 MG/DL (70-105); TOTAL PROTEIN 7.4 GM/DL (6.4-8.2)
[2020-07-30 06:03] LABS: CARBON DIOXIDE 20 MMOL/L (21-32)
[2020-07-30 06:04] LABS: BILIRUBIN,TOTAL 0.3 MG/DL (0.1-1.0)
[2020-07-30 06:05] LABS: ALKALINE PHOSPHATASE 59 U/L (40-136); CREATININE SERUM 1.03 MG/DL (0.60-1.30); GFR ESTIMATED > 60
[2020-07-30 06:06] LABS: BUN/CREATININE RATIO 14
[2020-07-30 06:08] LABS: ALANINE AMINOTRANSFERASE 23 U/L (0-55)
[2020-07-30] MEDS: inSUlin ASPART (NovoLOG) 1 UNIT/0.01 ML (CHARGE PER UNIT) SC SCH ×4 (06:20→21:54)
--- NOTE | 2020-07-30 06:36 | NUR ---
DR. JEONG NOTIFIED OF CONSULT.
[2020-07-30] MEDS ORDERED: CATHETER FLUSH 10 ML SYR IV PRN (07:00)
--- NOTE | 2020-07-30 08:46 | Pulmonary Consultation ---
History of Present Illness History of Present Illness Date Seen by Provider: Jul 30, 2020 Time Seen by Provider: 08:42 Date of Admission Allergies and Home Medications Allergies Coded Allergies: No Known Drug Allergies (Unverified , 01/14/15) Home Medications Amlodipine Besylate 10 Mg Tablet, 10 MG PO DAILY, (Reported) Fluticasone/Salmeterol 1 Each Blst.w.dev, 1 PUFF PO BID PRN for SHORTNESS OF BREATH, (Reported) Loratadine 10 Mg Tablet, 10 MG PO DAILY, (Reported) Metformin HCl 500 Mg Tab.er.24h, 500 MG PO DAILY, (Reported) Montelukast Sodium 10 Mg Tablet, 10 MG PO DAILY, (Reported) Simvastatin 40 Mg Tablet, 40 MG PO DAILY, (Reported) Sulfamethoxazole/Trimethoprim 1 Each Tablet, 1 EACH PO BID Prescribed by: AYE KEY on 01/29/20 1513 Past Nidggjl-Zbojij-Qfsbgx Hx Patient Social History Smoking Status: Current Everyday Smoker Type Used: Cigarettes Recent Foreign Travel: No Contact w/Someone Who Travel: No Recent Infectious Disease Expo: No Recent Hopitalizations: No ([facility] [place]) Immunizations Up To Date Date of Pneumonia Vaccine: Feb 06, 2018 Date of Influenza Vaccine: May 22, 2020 Seasonal Allergies Seasonal Allergies: No Past Medical History Surgeries: Yes (BRAIN ANEURYSM REPAIR X 2; LEFT ROTATOR CUFF REPAIR 03/2015) Adenoidectomy, Neurological, Orthopedic Respiratory: Yes COPD Currently Using CPAP: No Currently Using BIPAP: No Cardiac: Yes Coronary Artery Disease, High Cholesterol, Hypertension Neurological: Yes (BRAIN BLEED/BRAIN ANEURYSM REPAIR X 2-METAL CLIPS;COGNITIVE IMPAIRMENT) Stroke Genitourinary: Yes (UTI SEPSIS) Kidney Infection, Bladder Infection, Kidney Stones, Renal Failure Gastrointestinal: No Musculoskeletal: Yes (MUSCLE WEAKNESS;L ROTATOR CUFF REPAIR 03/2015;L HAND FRACTURE) Arthritis, Chronic Back Pain, Fractures Endocrine: Yes Diabetes, Non-Insulin dep HEENT: Yes Cataract Cancer: No Psychosocial: Yes (COGNITIVE IMPAIRMENT) Integumentary: No Blood Disorders: No Family Medical History Patient reports no known family medical history. No Pertinent Family Hx Review of Systems Time Seen by Provider: 08:46 Sepsis Event Evaluation Height, Weight, BMI Height: 5'6.00" Weight: 204lbs. oz. 92.573974an; 33.09 BMI Method:Stated Exam Exam Vital Signs Date Time Temp Pulse Resp B/P (MAP) Pulse Ox O2 Delivery O2 Flow Rate FiO2 07/30/20 08:08 35.7 80 18 152/76 (101) 93 Nasal Cannula 2.00 07/30/20 04:00 36.2 62 20 151/68 (95) 96 Nasal Cannula 2.00 07/30/20 03:15 36.7 93 93 21 07/30/20 01:42 36.0 69 24 150/71 94 Room Air 07/30/20 01:42 50 07/30/20 00:00 94 Room Air 07/29/20 18:51 87 20 129/73 97 Nasal Cannula 2.00 07/29/20 18:25 36.7 93 26 142/75 (97) 93 Room Air I & O 07/30/20 07:00 Intake Total 290 ml Output Total 1125 ml Balance -835 ml Height & Weight Height: 5'6.00" Weight: 204lbs. oz. 92.702435ox; 33.09 BMI Method:Stated Capillary Refill: Less Than 3 Seconds Gastrointestinal: normal bowel sounds, non tender, soft, no organomegaly, no pulsatile mass Results Lab Laboratory Tests 07/29/20 18:40 07/30/20 05:40 Assessment/Plan Assessment/Plan COVID PNA -Continue Remdesivir -CVP -Oxygen -Decadron Pneumonia -Tate cultures -Continue Rocephin and azithromycin Influenza B -Continue tamiflu right lung mass vs infiltrate -Repeat CT of chest with contrast 8 wks after discharge. COPD hx -Albuterol -Adviar Dementia chronic Hx of cerebral aneurysm repair GARRETT JEONG DO Jul 30, 2020 08:46
[2020-07-30] MEDS: ENOXAPARIN 100 MG/1 ML (LOVENOX) SYR SC SCH ×2 (08:54→21:59)
[2020-07-30] MEDS: OSELTAMIVIR 75 MG (TAMIFLU) CAPSULE PO SCH ×2 (08:58→21:53)
[2020-07-30] MEDS: FAMOTIDINE 20 MG (PEPCID) TABLET PO SCH ×2 (08:58→21:53)
[2020-07-30] MEDS ORDERED: REMDESIVIR 200 MG/NS 250 ML IVPB IV NR ×2 (09:00)
[2020-07-30] MEDS ORDERED: LOSA50TA63 PO (10:56)
[2020-07-30] MEDS ORDERED: ACET-2267 PO (10:56)
--- NOTE | 2020-07-30 11:02 | NUR ---
CALLED CHUCK (DAUGHTER IN LAW) AND WENT THRU THE EXT MED HISTORY TO COMPLETE THE MED REC CHUCK WAS ABLE TO NAME ALL OF GAB' MEDICATIONS WELL WHEN/HOW HE TAKES EACH- ALL HER INFORMATION MATCHED THE EXT MED HISTORY ACCORDING TO CHUCK THE PT IS PRESCRIBED ADVAIR 250/50 BUT "HE REFUSES TO USE IT AT HOME" (THAT WAS THE EXACT PHRASE CHUCK USED). FOR THIS REASON I DID NOT INCLUDE ADVAIR ON THE MED REC OTC MEDS: TYLENOL
--- NOTE | 2020-07-30 12:38 | History & Physical-Hospitalist ---
History of Present Illness HPI/Chief Complaint Papo Villanueva is a 74-year-old male with past medical history of hypertension, diabetes, hyperlipidemia, current smoker, obesity, who presented with shortness of breath. He is a poor historian. His provided the majority of the history. She reports that he began having fever and chills at home. He was also having shortness of breath and cough. His symptoms started yesterday. He had been checked for COVID about 3 days ago, but reportedly was asymptomatic. He denies chest pain. He denies shortness of breath. He denies abdominal pain. He denies nausea and vomiting. He is a current every day smoker. He does not drink alcohol or use illicit drugs. Source: patient Exam Limitations: clinical condition Date Seen 07/30/20 Time Seen by a Provider: 11:05 Attending Physician Cheryl Lafleur Kimberly J Arnp Referring Physician Date of Admission Jul 29, 2020 at 20:35 Home Medications & Allergies Home Medications Reviewed patient Home Medication Reconciliation performed by pharmacy medication reconciliations multimedia technician and/or nursing. Patients Allergies have been reviewed. Allergies Allergies Coded Allergies No Known Drug Allergies (Unverified01/14/15) Past Lyplezo-Dsfobs-Crlzme Hx Past Med/Social Hx: Reviewed Nursing Past Med/Soc Hx Patient Social History Smoking Status: Current Everyday Smoker Type Used: Cigarettes Recent Foreign Travel: No Contact w/other who traveled: No [place] [place] Infectious Disease Expo: No Immunizations Up To Date Date of Pneumonia Vaccine: Feb 06, 2018 Date of Influenza Vaccine: May 22, 2020 Seasonal Allergies Seasonal Allergies: No Past Medical History Surgeries: Adenoidectomy, Neurological, Orthopedic brain surgery at 34yo Respiratory: COPD Currently Using CPAP: No Currently Using BIPAP: No Cardiac: Coronary Artery Disease, High Cholesterol, Hypertension Neurological: Stroke Genitourinary: Kidney Infection, Bladder Infection, Kidney Stones, Renal Failure Musculoskeletal: Arthritis, Chronic Back Pain, Fractures Endocrine: Diabetes, Non-Insulin dep HEENT: Cataract 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 No Pertinent Family Hx Review of Systems Constitutional: chills, dizziness, fever EENTM: no symptoms reported Respiratory: cough, short of breath Cardiovascular: no symptoms reported Gastrointestinal: no symptoms reported Genitourinary: no symptoms reported Musculoskeletal: no symptoms reported Skin: no symptoms reported Psychiatric/Neurological: No Symptoms Reported Physical Exam Physical Exam Vital Signs Vital Signs - First Documented 07/29/20 07/29/20 07/30/20 18:25 18:51 03:15 Temp 36.7 Pulse 93 Resp 26 B/P (MAP) 142/75 (97) Pulse Ox 93 O2 Delivery Room Air O2 Flow Rate 2.00 FiO2 21 Capillary Refill : Less Than 3 Seconds Height, Weight, BMI Height: 5'6.00" Weight: 204lbs. oz. 92.109451hp; 33.09 BMI Method:Stated General Appearance: No Apparent Distress, Obese HEENT: PERRL/EOMI, Pharynx Normal Neck: Normal Inspection, Supple Respiratory: Lungs Clear, Normal Breath Sounds, No Respiratory Distress Cardiovascular: Regular Rate, Rhythm, No Edema, No Murmur Gastrointestinal: Normal Bowel Sounds, Non Tender, Soft Extremity: Normal Inspection, Non Tender, No Pedal Edema Neurologic/Psychiatric: Alert, Oriented x3, No Motor/Sensory Deficits, Normal Mood/Affect Skin: Normal Color, Warm/Dry Results Results/Procedures Labs Laboratory Tests 07/29/20 18:40 07/30/20 05:40 Patient resulted labs reviewed. Imaging: Reviewed Imaging Report Assessment/Plan Admission Diagnosis Acute respiratory failure due to COVID-19 Admission Status: Inpatient Order (span 2 midnights) Reason for Inpatient Admission: COVID requring IV medications PNA requiring IV antibiotics Assessment and Plan Acute respiratory failure due to COVID-19 Pneumonia due to COVID-19 Community acquired pneumonia Hypercoagulable state due to COVID-19 Elevated d-dimer At high risk of complication from COVID-19 COVID and Influenza B positive Chest xray with bilateral pneumonia Procalcitonin normal CT Chest with multifocal pneumonia, area of consolidation with concern for underlying mass Previous CT showed pleural based mass, 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 Started on Rocephin and Azithromycin for possible bacterial pneumonia Started on Decadron and Remdesivir for COVID Convalescent plasma ordered Started on Tamiflu for influenza D-dimer significantly elevated CT showed no evidence of PE Started on therapeutic Lovenox Supplemental oxygen as needed, minimal requirements at this time T2DM with hyperglycemia Steroid-induced hyperglycemia Levemir SSI HTN HLD Continue home meds Current smoker Nicotine patch Obesity Clinically significant, no acute management needs DVT Prophylaxis: already receiving therapeutic anticoagulation Diagnosis/Problems Diagnosis/Problems (1) Acute respiratory failure due to COVID-19 Status: Acute (2) Pneumonia due to COVID-19 virus Status: Acute (3) Influenza B Status: Acute (4) Hypercoagulable state associated with COVID-19 Status: Acute (5) At high risk for complication of COVID-19 Status: Acute (6) PNA (pneumonia) Status: Acute (7) Elevated d-dimer Status: Acute (8) T2DM (type 2 diabetes mellitus) Status: Chronic Qualifiers: Diabetes mellitus assisted insulin use: without assisted use Diabetes mellitus complication status: with hyperglycemia Qualified Codes: E11.65 - Type 2 diabetes mellitus with hyperglycemia (9) Steroid-induced hyperglycemia Status: Acute (10) HLD (hyperlipidemia) Status: Chronic (11) Obesity Status: Chronic (12) HTN (hypertension) Status: Chronic Qualifiers: Hypertension type: essential hypertension Qualified Codes: I10 - Essential (primary) hypertension (13) Smoker Status: Acute Clinical Quality Measures DVT/VTE Risk/Contraindication: Risk Factor Score Per Nursin RFS Level Per Nursing on Admit: 4+=Very High MARTHA LOCO MD Jul 30, 2020 12:38
[2020-07-30] MEDS ORDERED: NICOTINE 14 MG (NICODERM) PATCH TD ONE (13:00)
--- NOTE | 2020-07-30 13:08 | NUR ---
TALKED TO DWAINE ARCHIBALD TO UPDATE HER ON 'S CONDITION. SHE HAS ALREADY TALKED TO DR LOCO. SHE DOES NOT HAVE ANY OTHER QUESTIONS AT THIS TIME.
[2020-07-30] MEDS ORDERED: NS IV 500 ML 500 ML IV PRN (14:00)
--- NOTE | 2020-07-30 14:19 | NUR ---
"RD ASSESSMENT PMHx: COPD; CAD; hypercholesterolemia; HTN; stroke; DM; dementia; PT INTERACTION: Note pt is currently in COVID isolation, per chart review. Note all diet information for nutrition assessment is per Hetal ENGEL, or per chart review. Hetal states current appetite appears good. Note avg PO intake 100% x2meal, per chart review. Hetal states no issues with nausea, vomiting, constipation, or diarrhea that she is aware of. Hetal states no issues with chewing/swallowing food she is aware of, though the pt doesn't appear to have any teeth. Hetal states she did not ask about pt's teeth. Not no BM has been recorded, and pt not currently on bowel regimen per chart review. Note recent 17# wt gain x6mon, per chart review. Note unable to determine current level of DM management, and unable to determine recent HbA1c, per chart review. ABNORMAL NUTRITION-RELATED LAB VALUES LOW: Ca 8.3; HIGH: glu 200; Est. kcal needs: 5878-5021 kcal | 15-20 kcal/kg Est. Pro needs: 79-99 g Pro | 0.8-1.0 g Pro/kg PES STATEMENT: Given current PO intake, no nutrition diagnosis at this time (NO-1.1). INTERVENTION: Continue with current diet order of 2000mg Na diet. Pt may benefit from consistent CHO restriction if blood glucose levels become elevated. Did not offer diet education DM management, d/t isolation precautions. Will continue to follow and reassess as pt needs, intake, and status change. Papo HITCHCOCK, MS RD [phone] cell"
[2020-07-30] MEDS: ALBUTEROL/IPRATROP (COMBIVENT RESPIMAT) 4 GM INHALER IH SCH ×2 (15:14→19:55)
[2020-07-30] MEDS ORDERED: cefTRIAXone 1,000 MG/SWFI 10 ML IV PUSH IV SCH ×2 (20:00)
[2020-07-30] MEDS ORDERED: AZITHROMYCIN 500 MG/NS 250 ML IVPB IV SCH ×2 (20:00)
[2020-07-30] MEDS ORDERED: AZITHROMYCIN 250 MG TAB (ZITHROMAX) PO SCH (20:00)
[2020-07-30] MEDS: SIMvastatin 40 MG (ZOCOR) TAB PO SCH (21:52)
[2020-07-30] MEDS: MONTELUKAST 10 MG (SINGULAIR) TAB PO SCH (21:54)
[2020-07-31] MEDS: 1/2 NS IV SOLUTION 1,000 ML IV SCH ×3 (00:46→17:12)
[2020-07-31] MEDS: ALBUTEROL/IPRATROP (COMBIVENT RESPIMAT) 4 GM INHALER IH SCH ×4 (01:02→19:07)
[2020-07-31 03:56] VITALS: BP 162/70
[2020-07-31] MEDS: inSUlin ASPART (NovoLOG) 1 UNIT/0.01 ML (CHARGE PER UNIT) SC SCH ×4 (05:27→21:50)
[2020-07-31 06:12] LABS: BUN/CREATININE RATIO 20; CALCIUM 8.4 MG/DL (8.5-10.1); CARBON DIOXIDE 19 MMOL/L (21-32); CHLORIDE 107 MMOL/L (98-107); CREATININE SERUM 1.11 MG/DL (0.60-1.30); GFR ESTIMATED > 60; GLUCOSE 163 MG/DL (70-105); POTASSIUM 4.3 MMOL/L (3.6-5.0); SODIUM 138 MMOL/L (135-145)
[2020-07-31 08:00] VITALS: BP 161/76
[2020-07-31] MEDS: LORATADINE (CLARITIN) 10 MG TAB PO SCH (09:00)
[2020-07-31] MEDS: LOSARTAN 50 MG (COZAAR) TAB PO SCH (09:00)
[2020-07-31] MEDS: amLODIPine 10 MG (NORVASC) TAB PO SCH (09:00)
[2020-07-31] MEDS: NICOTINE PATCH REMOVAL TP SCH (09:00)
[2020-07-31] MEDS: FAMOTIDINE 20 MG (PEPCID) TABLET PO SCH ×2 (09:00→21:49)
[2020-07-31] MEDS: REMDESIVIR 100 MG/NS 250 ML IVPB IV SCH ×2 (09:00)
[2020-07-31] MEDS: OSELTAMIVIR 75 MG (TAMIFLU) CAPSULE PO SCH ×2 (09:01→21:49)
[2020-07-31] MEDS: ENOXAPARIN 100 MG/1 ML (LOVENOX) SYR SC SCH ×2 (09:01→21:50)
[2020-07-31] MEDS: NICOTINE 14 MG (NICODERM) PATCH TD SCH (09:01)
--- NOTE | 2020-07-31 10:23 | NUR ---
Spoke with April she states that the patient seems alert and oriented at first but if you continue speaking with him you will see that he is confused. April states to keep a good eye on him or he will wander.
[2020-07-31 11:13] VITALS: BP 148/69
--- NOTE | 2020-07-31 11:55 | Progress Note - Hospitalist ---
Subjective HPI/CC On Admission Date Seen by Provider: Jul 31, 2020 Time Seen by Provider: 10:45 Papo Villanueva is a 74-year-old male with past medical history of hypertension, diabetes, hyperlipidemia, current smoker, obesity, who presented with shortness of breath. He is a poor historian. His provided the majority of the h istory. She reports that he began having fever and chills at home. He was also having shortness of breath and cough. His symptoms started yesterday. He had been checked for COVID about 3 days ago, but reportedly was asymptomatic. He denies chest pain. He denies shortness of breath. He denies abdominal pain. He denies nausea and vomiting. He is a current every day smoker. He does not drink alcohol or use illicit drugs. Subjective/Events-last exam He feels well today. He has no complaints. He denies fevers. He denies shortness of breath. He denies cough. He has been eating and drinking. He has been up moving around. Focused Exam Lactate Level 07/29/20 18:40: Lactic Acid Level 1.06 Objective Exam Vital Signs Vital Signs Date Time Temp Pulse Resp B/P (MAP) Pulse Ox O2 Delivery O2 Flow Rate FiO2 07/31/20 11:13 35.3 66 18 148/69 (95) 96 Nasal Cannula 3.50 07/30/20 03:15 21 Capillary Refill : Less Than 3 Seconds General Appearance: No Apparent Distress, Obese Respiratory: Lungs Clear, Normal Breath Sounds, No Respiratory Distress Cardiovascular: Regular Rate, Rhythm, No Edema, No Murmur Gastrointestinal: Normal Bowel Sounds, Non Tender, Soft Extremity: Normal Inspection, Non Tender, No Pedal Edema Neurologic/Psychiatric: Alert, Oriented x3, No Motor/Sensory Deficits, Normal Mood/Affect Skin: Normal Color, Warm/Dry Results/Procedures Lab Laboratory Tests 07/31/20 05:26 Patient resulted labs reviewed. Imaging: Reviewed Imaging Report Assessment/Plan Assessment and Plan Assess & Plan/Chief Complaint Acute respiratory failure due to COVID-19 Pneumonia due to COVID-19 Hypercoagulable state due to COVID-19 At high risk of complication from COVID-19 continue Decadron and Remdesivir for COVID s/p 1 unit convalescent plasma continue Tamiflu for influenza continue therapeutic Lovenox stop Rocephin and Azithromycin, bacterial pneumonia unlikely Supplemental oxygen as needed, minimal requirements at this time T2DM with hyperglycemia Steroid-induced hyperglycemia Levemir SSI HTN HLD Continue home meds Current smoker Nicotine patch Obesity Clinically significant, no acute management needs DVT Prophylaxis: already receiving therapeutic anticoagulation Diagnosis/Problems Diagnosis/Problems (1) Acute respiratory failure due to COVID-19 Status: Acute (2) Pneumonia due to COVID-19 virus Status: Acute (3) Influenza B Status: Acute (4) Hypercoagulable state associated with COVID-19 Status: Acute (5) At high risk for complication of COVID-19 Status: Acute (6) Elevated d-dimer Status: Acute (7) T2DM (type 2 diabetes mellitus) Status: Chronic Qualifiers: Diabetes mellitus retirement insulin use: without terminal block assembler use Diabetes mellitus complication status: with hyperglycemia Qualified Codes: E11.65 - Type 2 diabetes mellitus with hyperglycemia (8) Steroid-induced hyperglycemia Status: Acute (9) HLD (hyperlipidemia) Status: Chronic (10) Obesity Status: Chronic (11) HTN (hypertension) Status: Chronic Qualifiers: Hypertension type: essential hypertension Qualified Codes: I10 - Essential (primary) hypertension (12) Smoker Status: Acute Clinical Quality Measures DVT/VTE Risk/Contraindication: Risk Factor Score Per Nursin RFS Level Per Nursing on Admit: 4+=Very High MARTHA LOCO MD Jul 31, 2020 11:55
[2020-07-31 16:14] VITALS: BP 144/67
[2020-07-31 20:59] VITALS: BP 139/67
[2020-07-31] MEDS: MONTELUKAST 10 MG (SINGULAIR) TAB PO SCH (21:49)
[2020-07-31] MEDS: SIMvastatin 40 MG (ZOCOR) TAB PO SCH (21:49)
[2020-08-01] VITALS (7 sets, daily range): BP systolic 106–150; BP diastolic 51–74
[2020-08-01] MEDS: ALBUTEROL/IPRATROP (COMBIVENT RESPIMAT) 4 GM INHALER IH SCH ×6 (02:20→22:32)
[2020-08-01] MEDS: 1/2 NS IV SOLUTION 1,000 ML IV SCH ×2 (05:27→13:09)
[2020-08-01] MEDS: inSUlin ASPART (NovoLOG) 1 UNIT/0.01 ML (CHARGE PER UNIT) SC SCH ×4 (05:51→21:44)
[2020-08-01] MEDS: NICOTINE 14 MG (NICODERM) PATCH TD SCH (10:01)
[2020-08-01] MEDS: ENOXAPARIN 100 MG/1 ML (LOVENOX) SYR SC SCH ×2 (10:01→21:19)
[2020-08-01] MEDS: FAMOTIDINE 20 MG (PEPCID) TABLET PO SCH ×2 (10:01→21:18)
[2020-08-01] MEDS: LORATADINE (CLARITIN) 10 MG TAB PO SCH (10:02)
[2020-08-01] MEDS: amLODIPine 10 MG (NORVASC) TAB PO SCH (10:02)
[2020-08-01] MEDS: LOSARTAN 50 MG (COZAAR) TAB PO SCH (10:02)
[2020-08-01] MEDS: OSELTAMIVIR 75 MG (TAMIFLU) CAPSULE PO SCH (10:03)
[2020-08-01] MEDS: REMDESIVIR 100 MG/NS 250 ML IVPB IV SCH ×2 (10:03)
[2020-08-01] MEDS: NICOTINE PATCH REMOVAL TP SCH (10:03)
[2020-08-01] MEDS: PANTOPRAZOLE 40 MG (PROTONIX) TAB PO SCH (10:07)
[2020-08-01 10:33] LABS: ALBUMIN 3.6 GM/DL (3.2-4.5); BILIRUBIN,TOTAL 0.3 MG/DL (0.1-1.0); CALCIUM 8.5 MG/DL (8.5-10.1); CREATININE SERUM 1.3 MG/DL (0.60-1.30); TOTAL PROTEIN 6.9 GM/DL (6.4-8.2)
--- NOTE | 2020-08-01 15:33 | NUR ---
Spoke with April. She states she is ready for patient to come home. Updated her on patient status at this time.
--- NOTE | 2020-08-01 16:30 | Progress Note - Hospitalist ---
Subjective HPI/CC On Admission Date Seen by Provider: Aug 01, 2020 Time Seen by Provider: 11:50 Papo Villanueva is a 74-year-old male with past medical history of hypertension, diabetes, hyperlipidemia, current smoker, obesity, who presented with shortness of breath. He is a poor historian. His provided the majority of the h istory. She reports that he began having fever and chills at home. He was also having shortness of breath and cough. His symptoms started yesterday. He had been checked for COVID about 3 days ago, but reportedly was asymptomatic. He denies chest pain. He denies shortness of breath. He denies abdominal pain. He denies nausea and vomiting. He is a current every day smoker. He does not drink alcohol or use illicit drugs. Subjective/Events-last exam he is feeling well. He is not short of breath. He denies any cough. He denies any fevers. He has no other complaints or concerns. He is watching [employer] on the television. Focused Exam Lactate Level 07/29/20 18:40: Lactic Acid Level 1.06 Objective Exam Vital Signs Vital Signs Date Time Temp Pulse Resp B/P (MAP) Pulse Ox O2 Delivery O2 Flow Rate FiO2 08/01/20 15:13 97 Room Air 08/01/20 12:04 37.0 62 18 150/73 (98) 08/01/20 08:20 3.50 07/30/20 03:15 21 Capillary Refill : Less Than 3 Seconds General Appearance: No Apparent Distress, Obese Respiratory: Lungs Clear, Normal Breath Sounds, No Respiratory Distress Cardiovascular: Regular Rate, Rhythm, No Edema, No Murmur Gastrointestinal: Normal Bowel Sounds, Non Tender, Soft Extremity: Normal Inspection, Non Tender, No Pedal Edema Neurologic/Psychiatric: Alert, Oriented x3, No Motor/Sensory Deficits, Normal Mood/Affect Skin: Normal Color, Warm/Dry Results/Procedures Lab Laboratory Tests 08/01/20 09:55 Patient resulted labs reviewed. Imaging: Reviewed Imaging Report Assessment/Plan Assessment and Plan Assess & Plan/Chief Complaint Acute respiratory failure due to COVID-19 Pneumonia due to COVID-19 Hypercoagulable state due to COVID-19 At high risk of complication from COVID-19 continue Decadron and Remdesivir for COVID s/p 1 unit convalescent plasma continue Tamiflu for influenza continue therapeutic Lovenox Supplemental oxygen as needed, minimal requirements at this time T2DM with hyperglycemia Steroid-induced hyperglycemia Levemir SSI HTN HLD Continue home meds Current smoker Nicotine patch Obesity Clinically significant, no acute management needs DVT Prophylaxis: already receiving therapeutic anticoagulation Diagnosis/Problems Diagnosis/Problems (1) Acute respiratory failure due to COVID-19 Status: Acute (2) Pneumonia due to COVID-19 virus Status: Acute (3) Influenza B Status: Acute (4) Hypercoagulable state associated with COVID-19 Status: Acute (5) At high risk for complication of COVID-19 Status: Acute (6) Elevated d-dimer Status: Acute (7) T2DM (type 2 diabetes mellitus) Status: Chronic Qualifiers: Diabetes mellitus half-way insulin use: without decision analyst use Diabetes mellitus complication status: with hyperglycemia Qualified Codes: E11.65 - Type 2 diabetes mellitus with hyperglycemia (8) Steroid-induced hyperglycemia Status: Acute (9) HLD (hyperlipidemia) Status: Chronic (10) Obesity Status: Chronic (11) HTN (hypertension) Status: Chronic Qualifiers: Hypertension type: essential hypertension Qualified Codes: I10 - Essential (primary) hypertension (12) Smoker Status: Acute Clinical Quality Measures DVT/VTE Risk/Contraindication: Risk Factor Score Per Nursin RFS Level Per Nursing on Admit: 4+=Very High MARTHA LOCO MD Aug 01, 2020 16:30
--- NOTE | 2020-08-01 16:49 | NUR ---
CM/SS discharge planning. Plan: Patient will likely discharge tomorrow. The patient will have a home o2 study done tomorrow. The patient is currently on room air. CM/SS attempted to contact the patient via room phone; however, he did not answer. CM/SS spoke with the patient's nurse and physician, they state no needs identified at this time.
[2020-08-01] MEDS ORDERED: 1/2 NS IV SOLUTION 0 ML IV ONE (21:13)
[2020-08-01] MEDS: MONTELUKAST 10 MG (SINGULAIR) TAB PO SCH (21:18)
[2020-08-01] MEDS: OSELTAMIVIR 30 MG (TAMIFLU) CAPSULE PO SCH (21:18)
[2020-08-01] MEDS: SIMvastatin 40 MG (ZOCOR) TAB PO SCH (21:18)
[2020-08-02 04:36] VITALS: BP 117/85
[2020-08-02 05:36] LABS: ALBUMIN 3.7 GM/DL (3.2-4.5); CHLORIDE 106 MMOL/L (98-107); POTASSIUM 4.3 MMOL/L (3.6-5.0); SODIUM 136 MMOL/L (135-145)
[2020-08-02 05:38] LABS: GLUCOSE 152 MG/DL (70-105); TOTAL PROTEIN 6.9 GM/DL (6.4-8.2)
[2020-08-02 05:39] LABS: CARBON DIOXIDE 18 MMOL/L (21-32)
[2020-08-02 05:40] LABS: BILIRUBIN,TOTAL 0.4 MG/DL (0.1-1.0)
[2020-08-02 05:42] LABS: ALKALINE PHOSPHATASE 41 U/L (40-136); CREATININE SERUM 1.02 MG/DL (0.60-1.30); GFR ESTIMATED > 60
[2020-08-02] MEDS: inSUlin ASPART (NovoLOG) 1 UNIT/0.01 ML (CHARGE PER UNIT) SC SCH ×2 (05:42→11:00)
[2020-08-02 05:43] LABS: BUN/CREATININE RATIO 26
[2020-08-02 05:45] LABS: ALANINE AMINOTRANSFERASE 32 U/L (0-55)
[2020-08-02] MEDS: ALBUTEROL/IPRATROP (COMBIVENT RESPIMAT) 4 GM INHALER IH SCH ×2 (07:13→12:00)
[2020-08-02 08:35] VITALS: BP 159/70
[2020-08-02] MEDS: NICOTINE 14 MG (NICODERM) PATCH TD SCH ×2 (09:14→09:19)
[2020-08-02] MEDS: ENOXAPARIN 100 MG/1 ML (LOVENOX) SYR SC SCH ×2 (09:14→09:22)
[2020-08-02] MEDS: OSELTAMIVIR 30 MG (TAMIFLU) CAPSULE PO SCH (09:14)
[2020-08-02] MEDS: PANTOPRAZOLE 40 MG (PROTONIX) TAB PO SCH (09:14)
[2020-08-02] MEDS: REMDESIVIR 100 MG/NS 250 ML IVPB IV SCH ×2 (09:14)
[2020-08-02] MEDS: amLODIPine 10 MG (NORVASC) TAB PO SCH (09:14)
[2020-08-02] MEDS: FAMOTIDINE 20 MG (PEPCID) TABLET PO SCH (09:14)
[2020-08-02] MEDS: LOSARTAN 50 MG (COZAAR) TAB PO SCH (09:14)
[2020-08-02] MEDS: LORATADINE (CLARITIN) 10 MG TAB PO SCH (09:16)
[2020-08-02] MEDS: NICOTINE PATCH REMOVAL TP SCH (09:17)
[2020-08-02 11:15] VITALS: BP 135/67
[2020-08-02] MEDS ORDERED: APIX5TAB PO (15:01)
[2020-08-02] MEDS ORDERED: OSLT75C PO (15:01)
--- NOTE | 2020-08-02 15:08 | Discharge Summary ---
Discharge Summary Hospital Course Was the Problem List Reviewed?: Yes Problems/Dx: (1) Acute respiratory failure due to COVID-19 Status: Acute (2) Pneumonia due to COVID-19 virus Status: Acute (3) Influenza B Status: Acute (4) Hypercoagulable state associated with COVID-19 Status: Acute (5) At high risk for complication of COVID-19 Status: Acute (6) Elevated d-dimer Status: Acute (7) T2DM (type 2 diabetes mellitus) Status: Chronic Qualifiers: Qualified Codes: E11.65 - Type 2 diabetes mellitus with hyperglycemia (8) Steroid-induced hyperglycemia Status: Acute (9) HLD (hyperlipidemia) Status: Chronic (10) Obesity Status: Chronic (11) HTN (hypertension) Status: Chronic Qualifiers: Qualified Codes: I10 - Essential (primary) hypertension (12) Smoker Status: Acute Hospital Course Date of Admission: Jul 29, 2020 at 20:35 Admission Diagnosis : Acute respiratory failure due to COVID-19 and influenza Family Physician/Provider: Alka Talavera Date of Discharge: 08/02/20 Discharge Diagnosis: Acute respiratory failure due to COVID-19 and influenza Hospital Course: Papo Villanueva is a 74-year-old male who was admitted with acute respiratory failure due to COVID-19 and influenza. He was treated with Decadron, Remdesivir, and convalescent plasma for COVID-19. He was treated with Tamiflu for influenza. He required some supplemental oxygen initially, but at the time of discharge he had no requirements. He was prescribed a short course of Tamiflu to complete a seven-day course. His course was also complicated by hypercoagulable state associated with COVID-19 and was given a one-month supply of Eliquis. He underwent a CT chest which showed no pulmonary embolism. He should follow-up with his primary care physician in a couple weeks. He will need to isolate until August 08. Labs and Pending Lab Test: Laboratory Tests 08/01/20 16:58: Glucometer 167H 08/01/20 21:34: Glucometer 224H 08/02/20 05:05: Sodium Level 136, Potassium Level 4.3, Chloride Level 106, Carbon Dioxide Level 18L, Anion Gap 12, Blood Urea Nitrogen 27H, Creatinine 1.02, Estimat Glomerular Filtration Rate > 60, BUN/Creatinine Ratio 26, Glucose Level 152H, Calcium Level 8.0L, Corrected Calcium 8.2L, Total Bilirubin 0.4, Aspartate Amino Transf (AST/SGOT) 25, Alanine Aminotransferase (ALT/SGPT) 32, Alkaline Phosphatase 41, Total Protein 6.9, Albumin 3.7 08/02/20 11:17: Glucometer 190H Microbiology 07/29/20 Blood Culture - Preliminary, Resulted No growth 07/29/20 Influenza Types A,B Antigen (ARLENE) - Final, Complete Home Meds Active Eliquis (Apixaban) 5 Mg Tablet 5 Mg PO BID 30 Days Tamiflu (Oseltamivir Phosphate) 75 Mg Cap 75 Mg PO BID 3 Days Reported Tylenol Extra Strength (Acetaminophen) 500 Mg Tablet 1,000 Mg PO Q6H PRN Losartan Potassium 50 Mg Tablet 50 Mg PO DAILY Montelukast Sodium 10 Mg Tablet 10 Mg PO DAILY Loratadine 10 Mg Tablet 10 Mg PO DAILY Metformin HCl ER (Metformin HCl) 500 Mg Tab.er.24h 500 Mg PO BID Simvastatin 40 Mg Tablet 40 Mg PO HS Amlodipine Besylate 10 Mg Tablet 10 Mg PO DAILY Assessment/Pt Instructions Take medications as prescribed. You are being started on a blood thinner, Eliquis. We have discussed the benefits versus risks, including bleeding. He saul uld follow up with his PCP in a couple weeks. Return with worsening shortness of breath or if you feel like you are getting worse. Discharge Planning: >30 minutes discharge planning Discharge Instructions Discharge Diet: No Restrictions Activity as Tolerated: Yes Discharge Physical Examination Vital Signs Vital Signs Date Time Temp Pulse Resp B/P (MAP) Pulse Ox O2 Delivery O2 Flow Rate FiO2 08/02/20 11:15 36.4 58 18 135/67 (89) 96 Room Air 08/01/20 08:20 3.50 07/30/20 03:15 21 General Appearance: No Apparent Distress, Obese HEENT: PERRL/EOMI, Pharynx Normal Respiratory: Lungs Clear, Normal Breath Sounds, No Respiratory Distress Cardiovascular: Regular Rate, Rhythm, No Edema, No Murmur Gastrointestinal: Normal Bowel Sounds, Non Tender, Soft Extremity: Normal Inspection, Non Tender, No Pedal Edema Skin: Normal Color, Warm/Dry Neurologic/Psychiatric: Alert, Oriented x3, No Motor/Sensory Deficits Allergies: Coded Allergies: No Known Drug Allergies (Unverified , 01/14/15) Discharge Summary Date of Admission Jul 29, 2020 at 20:35 Date of Discharge Discharge Date: Aug 02, 2020 Discharge Time: 15:07 Admission Diagnosis Acute respiratory failure due to COVID-19 Discharge Diagnosis Acute respiratory failure due to COVID-19 and influenza (1) Acute respiratory failure due to COVID-19 Status: Acute (2) Pneumonia due to COVID-19 virus Status: Acute (3) Influenza B Status: Acute (4) Hypercoagulable state associated with COVID-19 Status: Acute (5) At high risk for complication of COVID-19 Status: Acute (6) Elevated d-dimer Status: Acute (7) T2DM (type 2 diabetes mellitus) Status: Chronic Qualifiers: Qualified Codes: E11.65 - Type 2 diabetes mellitus with hyperglycemia (8) Steroid-induced hyperglycemia Status: Acute (9) HLD (hyperlipidemia) Status: Chronic (10) Obesity Status: Chronic (11) HTN (hypertension) Status: Chronic Qualifiers: Qualified Codes: I10 - Essential (primary) hypertension (12) Smoker Status: Acute Clinical Quality Measures DVT/VTE Risk/Contraindication: Risk Factor Score Per Nursin RFS Level Per Nursing on Admit: 4+=Very High MARTHA LOCO MD Aug 02, 2020 15:08
[2020-08-02] MEDS ORDERED: OSELTAMIVIR 75 MG (TAMIFLU) CAPSULE PO SCH (21:00)
== END 2020-08-02 15:30 | disposition home or self-care (01) | DRG 177 ==
LOC: EDUNIT# 18:24 → ER 18:26 → 4TH 20:35
PROVIDERS: ADMIT Internal Medicine; ATTEND Internal Medicine
PROC: XW033E5 Introduction of Remdesivir Anti-infective into Peripheral Vein, Percutaneous Approach, New Technology Group 5 (ICD-10-PCS; principal; 2020-07-30)
PROC: XW13325 Transfusion of Convalescent Plasma (Nonautologous) into Peripheral Vein, Percutaneous Approach, New Technology Group 5 (ICD-10-PCS; 2020-07-30)
DX: U07.1 COVID-19 (principal); J12.89 Other viral pneumonia; J96.01 Acute respiratory failure with hypoxia; J10.08 Influenza due to other identified influenza virus with other specified pneumonia; J44.9 Chronic obstructive pulmonary disease, unspecified; F17.210 Nicotine dependence, cigarettes, uncomplicated; E11.65 Type 2 diabetes mellitus with hyperglycemia; I25.10 Atherosclerotic heart disease of native coronary artery without angina pectoris; I69.119 Unspecified symptoms and signs involving cognitive functions following nontraumatic intracerebral hemorrhage; E78.00 Pure hypercholesterolemia, unspecified; E78.5 Hyperlipidemia, unspecified; I10 Essential (primary) hypertension; M19.91 Primary osteoarthritis, unspecified site; M54.9 Dorsalgia, unspecified; E66.9 Obesity, unspecified; Z68.32 Body mass index [BMI] 32.0-32.9, adult; Z79.84 Long term (current) use of oral hypoglycemic drugs; T38.0X5A Adverse effect of glucocorticoids and synthetic analogues, initial encounter
CPT/HCPCS: 36415; 51702; 71045; 71275; 80048; 80053; 81000; 82550; 82553; 82962; 83605; 83615; 83735; 83874; 83880; 84145; 84484; 85025; 85379; 85610; 85652; 85730; 86141; 86850; 86900; 86901; 87040; 87635; 87804; 93005; 93041; 94640; 94760

== ENCOUNTER 2021-06-26 05:26 | Outpatient (RCR) | payer MEDICARE, MEDICAID ==
[~2021-06-26] VITALS: Ht 152.4 cm; Wt 83.8 kg
[~2021-06-26 05:26] MED LIST changes: +ACET-2267 PO; +APIX5TAB PO; +LOSA50TA63 PO; +METF750T45 PO; +MONT10TA32 PO; -MONT10TA97 PO; +OSLT75C PO; -SULF1TAB35 PO; +SULF1TAB38 PO
== END 2021-06-26 13:10 | disposition home or self-care (01) ==
LOC: PREOP 05:26
PROVIDERS: ATTEND Surgery
DX: Z01.812 Encounter for preprocedural laboratory examination (principal); D64.9 Anemia, unspecified; K92.1 Melena; Z20.822 Contact with and (suspected) exposure to COVID-19
CPT/HCPCS: 87635

== ENCOUNTER 2022-04-09 17:37 | Emergency (ER) | payer MEDICARE, MEDICAID ==
[~2022-04-09] VITALS: Ht 175 cm; Wt 77.1 kg
[~2022-04-09 17:37] MED LIST changes: +MONT-40 PO; -MONT10TA32 PO
--- NOTE | 2022-04-09 17:56 | ED Fall/Injury ---
General Chief Complaint: Trauma EMS/Air Arrival Activat Stated Complaint: FALL Nursing Triage Note: PT PRESENTS TO ED VIA EMS FROM HOME WITH COMPLAINTS OF FALL. PT HAS R HIP PAIN, LAC TO R HEAD. PT DOES NOT REMEMBER THE FALL BUT STATES HE DOESNT THINK HE HAD LOC. Source: patient Exam Limitations: no limitations (INDU MARTÍNEZ) History of Present Illness Date Seen by Provider: Apr 09, 2022 Time Seen by Provider: 17:57 Initial Comments Patient is a 76-year-old male who presents ED with head pain, right hip pain, bilateral shoulder pain, and chest pain after a fall. Patient fell 30 minutes ago at home. He cannot recall how he fell. He lives in a apartment and the [facility] heard a "thump". According to family this was witnessed as they noted patient walking at the time twist and turn and fell. Family Believes this was more of a mechanical fall and lost his balance. Patient states he woke up on the floor facedown. EMS was contacted and lopez to the ED. On arrival patient complaining of facial pain with laceration above the right eye and skin tear to right hand with pain in his chest, shoulders and right hip. Denies of any hand pain or wrist pain. Patient did landed on his shoulders, chest and right hip. Slight deformity noted with shortening and rotation of the right hip. No history of hip arthroplasty. Not on blood thinners. On arrival alert and orient x3. Denies of any focal neural deficits, abdominal pain vomiting, diarrhea, neck pain, middle lower back pain, shortness of breath, cough. Patient was given 100 of fentanyl in route by EMS. Up to date on his tetanus (INDU MARTÍNEZ) Allergies and Home Medications Allergies Coded Allergies: No Known Drug Allergies (Unverified , 01/14/15) Patient Home Medication List Home Medication List Reviewed: Yes (INDU MARTÍNEZ) Montelukast Sodium (Montelukast Sodium) 10 Mg Tablet, 10 MG PO DAILY, (Reported) Entered as Reported by: ALEKSANDER DELA CRUZ on 01/29/20 1123 Simvastatin (Simvastatin) 40 Mg Tablet, 40 MG PO HS, (Reported) Entered as Reported by: ALEKSANDER DELA CRUZ on 12/31/19 1314 Discontinued Medications Amlodipine Besylate (Amlodipine Besylate) 10 Mg Tablet, 10 MG PO DAILY, (Reported) Discontinued Reason: No Longer Taking Entered as Reported by: ALEKSANDER DELA CRUZ on 12/31/19 1309 Last Action: Discontinued Loratadine (Loratadine) 10 Mg Tablet, 10 MG PO DAILY, (Reported) Discontinued Reason: No Longer Taking Entered as Reported by: ALEKSANDER DELA CRUZ on 01/29/20 1123 Last Action: Discontinued Losartan Potassium (Losartan Potassium) 50 Mg Tablet, 50 MG PO DAILY, (Reported) Discontinued Reason: No Longer Taking Entered as Reported by: ALEKSANDER DELA CRUZ on 07/30/20 1056 Last Action: Discontinued Metformin HCl (Metformin HCl ER) 500 Mg Tab.er.24h, 500 MG PO BID, (Reported) Discontinued Reason: No Longer Taking Entered as Reported by: ALEKSANDER DELA CRUZ on 12/31/19 1314 Last Action: Discontinued Metformin HCl (Metformin HCl ER) 750 Mg Tab.er.24h, 750 MG PO BID, (Reported) Discontinued Reason: No Longer Taking Entered as Reported by: MAGDALENA ZAVALA on 06/24/21 0919 Last Action: Discontinued Review of Systems Review of Systems Constitutional: No chills, No diaphoresis, No malaise Eyes: Denies Drainage, Denies Decreased Acuity Ears, Nose, Mouth, Throat: denies ear pain Respiratory: No cough, No short of breath Cardiovascular: chest pain Gastrointestinal: No abdominal pain, No diarrhea, No nausea, No vomiting Genitourinary: No decreased output, No discharge Musculoskeletal: No back pain; joint pain, joint swelling, muscle pain, muscle stiffness (INDU MARTÍNEZ) All Other Systems Reviewed Negative Unless Noted: Yes (INDU MARTÍNEZ) Past Rshechh-Csxhji-Tzrlbz Hx Patient Social History Tobacco Use?: Yes Tobacco type used: Cigarettes Smoking Status: Current Everyday Smoker Substance use?: No Alcohol Use?: No Pt feels they are or have been: No (INDU MARTÍNEZ) Immunizations Up To Date Tetanus Booster (TDap): Unknown First/Initial COVID19 Vaccinat: OCTOBER 2020 Second COVID19 Vaccination Damon: NOVEMBER 2020 Third COVID19 Vaccination Date: OCTOBER 2020 (INDU MARTÍNEZ) Seasonal Allergies Seasonal Allergies: No (INDU MARTÍNEZ) Past Medical History Surgeries: Yes (BRAIN ANEURYSM REPAIR X 2; LEFT ROTATOR CUFF REPAIR 03/2015) Adenoidectomy, Neurological, Orthopedic Respiratory: Yes COPD Currently Using CPAP: No Currently Using BIPAP: No Cardiac: Yes Coronary Artery Disease, High Cholesterol, Hypertension Neurological: Yes (BRAIN BLEED/BRAIN ANEURYSM REPAIR X 2-METAL CLIPS;COGNITIVE IMPAIRMENT) Stroke Genitourinary: Yes (UTI SEPSIS) Kidney Infection, Bladder Infection, Kidney Stones, Renal Failure Gastrointestinal: No Musculoskeletal: Yes (MUSCLE WEAKNESS;L ROTATOR CUFF REPAIR 03/2015;L HAND FRACTURE) Arthritis, Chronic Back Pain, Fractures Endocrine: Yes Diabetes, Non-Insulin dep HEENT: Yes Cataract Cancer: No Psychosocial: Yes (COGNITIVE IMPAIRMENT) Integumentary: No Blood Disorders: No (INDU MARTÍNEZ) Family Medical History Patient reports no known family medical history. No Pertinent Family Hx (INDU MARTÍNEZ) Physical Exam Vital Signs Vital Signs - First Documented 04/09/22 17:49 Temp 37.0 Pulse 100 Resp 20 B/P (MAP) 167/78 (107) Pulse Ox 94 (LUIS,SUSAN K DO) Vital Signs Capillary Refill : Less Than 3 Seconds (INDU MARTÍNEZ) Height, Weight, BMI Height: 5'6.00" Weight: 204lbs. oz. 92.948946xl; 25.00 BMI Method:Stated General Appearance: No WD/WN, No no apparent distress HEENT: No PERRL/EOMI, No normal ENT inspection, No TMs normal, No pharynx normal Neck: No non-tender, No full range of motion, No supple, No normal inspection Cardiovascular: No regular rate, rhythm, No no edema, No no gallop, No no JVD Respiratory: chest non-tender; No lungs clear, No normal breath sounds, No no respiratory distress, No no accessory muscle use; other (Bilateral chest wall tenderness) Gastrointestinal: No normal bowel sounds, No non tender, No soft Pelvic: other (Right-sided hip tenderness with internal rotation of the right hip) Back: normal inspection, no CVA tenderness, no vertebral tenderness Extremities: other (Normal active range of motion of the right wrist. Abrasion to the right dorsum hand. Shortening of the right hip, right leg. Neurovascular tact) Neurologic/Psychiatric: supervisor powdered sugar II-XII nml as tested, no motor/sensory deficits, alert, normal mood/affect, oriented x 3 Skin: other (Abrasion to the right dorsum hand. Laceration to the right eyebrow) (INDU MARTÍNEZ) Max Coma Score Best Eye Response: (4) Open Spontaneously Best Verbal Response: (5) Oriented Best Motor Response: (6) Obeys Commands Max Total: 15 (INDU MARTÍNEZ) Progress/Results/Core Measures Results/Orders Lab Results Laboratory Tests Test 04/09/22 17:50 Range/Units White Blood Count 6.2 4.3-11.0 10^3/uL Red Blood Count 3.78 L 4.30-5.52 10^6/uL Hemoglobin 9.0 L 13.3-17.7 g/dL Hematocrit 29 L 40-54 % Mean Corpuscular Volume 76 L 80-99 fL Mean Corpuscular Hemoglobin 24 L 25-34 pg Mean Corpuscular Hemoglobin Concent 31 L 32-36 g/dL Red Cell Distribution Width 16.2 H 10.0-14.5 % Platelet Count 239 130-400 10^3/uL Mean Platelet Volume 8.5 L 9.0-12.2 fL Immature Granulocyte % (Auto) 1 % Neutrophils (%) (Auto) 56 42-75 % Lymphocytes (%) (Auto) 26 12-44 % Monocytes (%) (Auto) 14 H 0-12 % Eosinophils (%) (Auto) 3 0-10 % Basophils (%) (Auto) 1 0-10 % Neutrophils # (Auto) 3.5 1.8-7.8 10^3/uL Lymphocytes # (Auto) 1.6 1.0-4.0 10^3/uL Monocytes # (Auto) 0.9 0.0-1.0 10^3/uL Eosinophils # (Auto) 0.2 0.0-0.3 10^3/uL Basophils # (Auto) 0.0 0.0-0.1 10^3/uL Immature Granulocyte # (Auto) 0.0 0.0-0.1 10^3/uL Prothrombin Time 13.3 12.2-14.7 SEC INR Comment 1.0 0.8-1.4 Activated Partial Thromboplast Time 31 24-35 SEC Sodium Level 139 135-145 MMOL/L Potassium Level 4.4 3.6-5.0 MMOL/L Chloride Level 104 98-107 MMOL/L Carbon Dioxide Level 25 21-32 MMOL/L Anion Gap 10 5-14 MMOL/L Blood Urea Nitrogen 16 7-18 MG/DL Creatinine 0.79 0.60-1.30 MG/DL Estimat Glomerular Filtration Rate 93 BUN/Creatinine Ratio 20 Glucose Level 116 H 70-105 MG/DL Calcium Level 8.4 L 8.5-10.1 MG/DL Corrected Calcium 9.4 8.5-10.1 MG/DL Total Bilirubin 0.3 0.1-1.0 MG/DL Aspartate Amino Transf (AST/SGOT) 13 5-34 U/L Alanine Aminotransferase (ALT/SGPT) 16 0-55 U/L Alkaline Phosphatase 43 40-136 U/L Troponin I < 0.028 <0.028 NG/ML Total Protein 7.1 6.4-8.2 GM/DL Albumin 2.8 L 3.2-4.5 GM/DL (SUSAN SMITH DO) Vital Signs/I&O 04/09/22 04/09/22 17:49 18:55 Temp 37.0 37.0 Pulse 100 100 Resp 20 20 B/P (MAP) 167/78 (107) 167/78 (107) Pulse Ox 94 94 (SUSAN SMITH DO) Blood Pressure Mean: 107 Comment Sinus rhythm, 99 bpm, QRS duration 90 MS, QTC 400 MS (INDU MARTÍNEZ) Departure Communication (Admissions) Time/Spoke to Admitting Phy: 21:59 Patient was accepted by Dr. Farmer in the ER at [facility]. Patient will need neurosurgery consult as well as orthopedic (INDU MARTÍNEZ) Communication (PCP) Patient on arrival complaining of right hip pain and head pain. He had no cervical midline pain but was placed in a c-collar secondary to a fall from standing and mechanism of injury. He has a small superficial laceration to the right lateral eyebrow that does not require sutures. Up-to-date on his tetanus. Abrasion to the right hand but has no hand or wrist pain. He is complaining of bilateral shoulder pain, chest discomfort and right hip pain with internal and shortening of the right hip. He is neurovascular intact. Moving all extremities but limited to the right leg. X-ray shows a comminuted displaced intertrochanteric fracture of the right hip. Patient was given fentanyl in route by EMS as well as a dose of fentanyl, morphine and Dilaudid here with some improvement. CT scan of the head and maxillofacial was negative for acute fracture. CT scan cervical was concerned for a type II mildly displaced odontoid fracture. Age indeterminate. This could be a old versus new. Will need MRI to help rule out. CT scan of the chest shows a lesion to the right upper lobe with osseous involvement of the first and second rib. Concerning for cancer. Family is aware of this and states that this is old and not cancerous. Family states this was a fatty tumor? further evaluation may be needed. Patient lab work showed anemia at 9.0. Chemistry unremarkable. Normal troponin. EKG showed normal sinus rhythm with mild ST depression. According to family this was a mechanical fall however patient cannot recall how he fell. He has not on blood thinners. Due to the odontoid fracture patient will be transferred where neurosurgery capabilities. Family agree to transfer to [place]. Patient was discussed with Dr. Farmer ER physician who accepts patient for transfer. Family agrees. Currently do not have a EMS ground transport. Recommend getting the patient quicker secondary to his findings and further evaluation. Patient will be transferred by air. Patient vital signs stable. (INDU MARTÍNEZ) Impression Primary Impression: Hip fracture Additional Impression: Odontoid fracture Disposition: XFER SHT-TRM HOSP Condition: Stable Admissions Decision to Admit Reason: Admit from ER (General) Decision to Admit/Date: Apr 09, 2022 Time/Decision to Admit Time: 22:59 (INDU MARTÍNEZ) Transfer Transfer Reason: Exceeds level of care Time Spoke to Accepting Phy: 21:[address] Farmer Transfer Time: 21:59 Transfer Facility: [facility] Method of Transfer: Air (INDU MARTÍNEZ) Departure-Patient Inst. Referrals: DEREK VEE (PCP/Family) Primary Care Physician ATTENDING PHYSICIAN NOTE: I WAS PHYSICALLY PRESENT ER PHYSICIAN, BUT I WAS NOT INVOLVED IN ANY DECISION MAKING OR ANY CARE OF THIS PATIENT, AND I AM NOT COLLABORATING PHYSICIAN. (SUSAN SMITH DO) INDU MARTÍNEZ Apr 09, 2022 17:56 SUSAN SMITH DO Apr 10, 2022 20:01
[2022-04-09 18:02] LABS: BASOPHILS % (AUTO) 1 % (0-10); EOSINOPHILS # (AUTO) 0.2 10^3/uL (0.0-0.3); EOSINOPHILS % (AUTO) 3 % (0-10); HEMATOCRIT 29 % (40-54); LYMPHOCYTES # (AUTO) 1.6 10^3/uL (1.0-4.0); LYMPHOCYTES % (AUTO) 26 % (12-44); MEAN CORPUSCULAR HEMOGLOBIN 24 pg (25-34); MEAN CORPUSCULAR HGB CONC 31 g/dL (32-36); MEAN CORPUSCULAR VOLUME 76 fL (80-99); MEAN PLATELET VOLUME 8.5 fL (9.0-12.2); MONOCYTES # (AUTO) 0.9 10^3/uL (0.0-1.0); MONOCYTES % (AUTO) 14 % (0-12); NEUTROPHILS # (AUTO) 3.5 10^3/uL (1.8-7.8); NEUTROPHILS % (AUTO) 56 % (42-75); PLATELET COUNT 239 10^3/uL (130-400); WHITE BLOOD COUNT 6.2 10^3/uL (4.3-11.0)
[2022-04-09 18:19] LABS: PROTHROMBIN TIME PATIENT 13.3 SEC (12.2-14.7)
[2022-04-09 18:20] LABS: ALBUMIN 2.8 GM/DL (3.2-4.5)
[2022-04-09 18:21] LABS: CHLORIDE 104 MMOL/L (98-107); POTASSIUM 4.4 MMOL/L (3.6-5.0); SODIUM 139 MMOL/L (135-145)
[2022-04-09 18:22] LABS: CALCIUM 8.4 MG/DL (8.5-10.1)
[2022-04-09 18:23] LABS: GLUCOSE 116 MG/DL (70-105); TOTAL PROTEIN 7.1 GM/DL (6.4-8.2)
[2022-04-09 18:24] LABS: CARBON DIOXIDE 25 MMOL/L (21-32)
[2022-04-09 18:25] LABS: BILIRUBIN,TOTAL 0.3 MG/DL (0.1-1.0)
[2022-04-09 18:26] LABS: ALKALINE PHOSPHATASE 43 U/L (40-136); CREATININE SERUM 0.79 MG/DL (0.60-1.30); GFR ESTIMATED 93
[2022-04-09 18:28] LABS: BUN/CREATININE RATIO 20
[2022-04-09 18:29] LABS: ALANINE AMINOTRANSFERASE 16 U/L (0-55)
[2022-04-09] MEDS ORDERED: fentaNYL INJ 100 MCG/2 ML AMP IVP STA (19:00)
--- NOTE | 2022-04-09 19:11 | Diagnostic Imaging Report ---
CLINICAL HISTORY: Fall. Right hip pain. COMPARISON: None. TECHNIQUE: 2 views of the right hip. FINDINGS: Severely comminuted fracture seen involving the proximal right femur involving the greater and lesser trochanters. No dislocation of the right hip is seen. No pelvic fractures are seen in the included pelvis. IMPRESSION: Severely comminuted intertrochanteric fracture involving the proximal right femur. Dictated by: Dictated on workstation # [id number]
--- NOTE | 2022-04-09 19:14 | Diagnostic Imaging Report ---
INDICATION: Post fall, pain. TECHNIQUE: Three views of the bilateral shoulder 6:33 PM. CORRELATION STUDY: None. FINDINGS: There is suboptimal positioning of both shoulder radiographs. There is rather pronounced bony demineralization. Right shoulder demonstrates what appears to be prior old healed right clavicle fracture. Significantly high riding humeral head is present. Jyotsna dislocation or evidence for acute fracture does not appear to be suggested. Left shoulder also demonstrates markedly high riding humeral head with essentially complete absence of acromial joint space. There is significant narrowing at the glenohumeral articulation with subcortical sclerosis present. No acute fracture or jyotsna dislocation. There is asymmetric opacity of the right upper lung field with what appears to be a combination of an infiltrate and right pleural effusion. IMPRESSION: 1. Significant limitations of study given patient positioning. Definitive acute fracture or dislocation does not appear to be suggested. However, findings do suggest advanced degenerative changes as well as likely probable underlying rotator cuff pathology. 2. Rather significant opacity in the right upper lung field likely a combination of infiltrate and effusion. Follow-up imaging evaluation is recommended. Dictated by: Dictated on workstation # [id number]
[2022-04-09] MEDS ORDERED: IOHEXOL 350 MG/ML 100 ML (OMNIPAQUE 350) VIAL IV ONE (20:00)
[2022-04-09] MEDS ORDERED: HOLD METFORMIN - RECEIVED CONTRAST 20 ML VIAL IV SCH (20:00)
--- NOTE | 2022-04-09 20:10 | Diagnostic Imaging Report ---
EXAMINATION: CT chest with intravenous contrast. TECHNIQUE: Multiple contiguous axial images were obtained through the chest after the uneventful administration of intravenous contrast. All CT scans use one or more of the following dose optimizing techniques: automated exposure control, MA and/or KvP adjustment based on patient size and exam type or iterative reconstruction. HISTORY: Chest pain. Fall. COMPARISON: 07/29/2020. FINDINGS: The heart size is within normal limits. No pericardial effusion is present. There is calcified aortic and coronary atherosclerotic plaque without aneurysm. Prominent mediastinal lymph nodes are seen measuring up to 1.1 cm in short axis. There has been interval marked increase in size in a large centrally necrotic mass within the right upper lobe measuring 9.3 x 6.8 cm on today's exam, previously measuring 2.7 x 2.4 cm. Centrilobular emphysema is present. There is no pleural effusion or pneumothorax. Irregularity and sclerosis is noted involving the right 1st and 2nd ribs. Old right-sided rib fractures are seen in the 8th through 10th ribs. No acute fracture is seen in the chest. There is hepatosplenomegaly. Both adrenal glands are unremarkable. IMPRESSION: 1. Marked increase in size in the central necrotic mass within the right upper lobe, representing malignancy until proven otherwise. 2. Erosive changes in the right 1st and 2nd ribs concerning for osseous metastatic disease. Additional prominent lymph nodes are seen in the mediastinum. 3. Nonspecific hepatosplenomegaly. Dictated by: Dictated on workstation # [id number]
--- NOTE | 2022-04-09 20:10 | Diagnostic Imaging Report ---
PROCEDURE: CT head and maxillofacial without contrast. TECHNIQUE: Multiple contiguous axial images were obtained through the head and facial bones without the use of intravenous contrast. Auto Exposure Controls were utilized during the CT exam to meet ALARA standards for radiation dose reduction. INDICATION: 76-year-old male, post fall with laceration to the head. Amnesia regarding the fall. Suspect positive loss of consciousness. CORRELATION STUDY: None. FINDINGS: CT HEAD: Previous left frontal craniotomy. Large area of encephalomalacia involving the left frontal and temporal lobes. Generalized atrophic changes with prominence of the ventricles and sulci as well as a asymmetric ex vacuo dilatation of left lateral ventricle. Rather extensive scattered areas of decreased attenuation throughout the bilateral cerebral hemispheres. Definitive regional area of edema is not suggested but could easily go undetected on this study. Aneurysm clipping in the anterior interhemispheric fissure. No suggestion for acute intracranial hemorrhage. Intracranial vascular calcification is present. CT MAXILLOFACIAL: Patient is noted be edentulous. Mandible intact with advanced degenerative change in bilateral submandibular joints. Findings favor probable old nasal bone fracture deformities. There is a depression and scalloping of the anterior wall of bilateral maxillary sinuses which appears to be likely nonacute. No significant air-fluid levels. The orbital lane, including floors, are intact. Depression of the left zygomatic arch also appears to be nonacute. Pterygoid plates maintained. Superior cervical spine is visualized. Findings are positive for type II odontoid fracture. There is gas at diastasis of approximately 4 mm. Very slight dorsal displacement of the odontoid in relation to the body. IMPRESSION: CT head: 1. Negative for acute traumatic intracranial abnormality. 2. Rather advanced atrophic and involutional changes of the brain. Prior left frontal craniotomy with likely aneurysm clipping. Asymmetric encephalomalacia in left frontal and temporal lobes. CT maxillofacial: 1. Negative for acute displaced maxillofacial fracture deformity. Findings do suggest perhaps previous traumatic changes. 2. Findings are positive for minimally displaced type II odontoid fracture. Some features suggest this could potentially be nonacute. However, I have no prior studies and/or history to confirm this and the possibility of acute fracture is not excluded. Dictated by: Dictated on workstation # [id number]
[2022-04-09] MEDS ORDERED: morphine INJ 10 MG/ML 1ML (SYR OR VIAL) IVP ONE (20:15)
[2022-04-09] MEDS ORDERED: HYDROmorphone 2 MG/ML VIAL (DILAUDID) IV ONE ×3 (21:00→23:00)
--- NOTE | 2022-04-09 21:35 | Diagnostic Imaging Report ---
PROCEDURE: CT cervical spine without contrast. TECHNIQUE: Multiple contiguous axial images were obtained through the cervical spine without the use of intravenous contrast. Sagittal and coronal reformations were then performed. Auto Exposure Controls were utilized during the CT exam to meet ALARA standards for radiation dose reduction. INDICATION: 76-year-old male, odontoid fracture, neck pain. CORRELATION STUDY: None. FINDINGS: Findings are positive for slightly obliquely oriented fracture at the base of the odontoid. There is approximately 4 mm of diastasis and slight retrolisthesis the proximal width of the cortex present. There is suggestion of slight sclerotic margins with portions of the fracture lines at both the body and base of the odontoid. No definitive surrounding soft tissue edema. The C1 ring is maintained. Occipital condyles are maintained. Lateral masses of C1 and C2 are aligned. The remaining cervical spine alignment is anatomic. Slight asymmetric areas of disc space narrowing, particularly at C3-C4 with mild osteophyte formation with minimal encroachment on the neural foramina. Posterior elements are intact and in normal alignment. Scattered areas of asymmetric hypertrophic facet arthropathy. Asymmetric opacity of the anterior aspect of the right upper lung is present. There is suggestion of erosive change at the anterior right 1st rib. IMPRESSION: 1. Positive for mildly displaced type II odontoid fracture. Age of this is somewhat indeterminate. While it could potentially be chronic, acute fracture is not excluded. Consideration for MRI would be recommended for further assessment. 2. Opacity in the anterior aspect of right upper lobe. Erosive changes of the 1st rib, concerning for underlying malignancy. Dictated by: Dictated on workstation # [id number]
[2022-04-09 22:53] VITALS: BP 162/104
== END 2022-04-09 23:12 | disposition short-term general hospital (02) ==
LOC: EDUNIT# 17:37 → ER 17:46 → 4TH 19:23 → UNDOADMIN 19:23 → EEVIPCON 19:23 → 4TH 20:51 → ER 23:12
DX: S72.141A Displaced intertrochanteric fracture of right femur, initial encounter for closed fracture (principal); S12.110A Anterior displaced Type II dens fracture, initial encounter for closed fracture; S01.111A Laceration without foreign body of right eyelid and periocular area, initial encounter; S60.511A Abrasion of right hand, initial encounter; R07.89 Other chest pain; F17.210 Nicotine dependence, cigarettes, uncomplicated; W18.30XA Fall on same level, unspecified, initial encounter
CPT/HCPCS: 36415; 70450; 70486; 71260; 72125; 73502; 80053; 84484; 85025; 85610; 85730

== ENCOUNTER → 2022-05-04 | Outpatient (CLI) | payer MEDICARE, MEDICAID ==
[2022-05-04 12:47] LABS: CLARITY,URINE CLEAR; COLOR,URINE YELLOW; GLUCOSE, URINE (UA) NEGATIVE (NEGATIVE); KETONES,URINE NEGATIVE (NEGATIVE); NITRITE,URINE POSITIVE (NEGATIVE); PH,URINE 5.5 (5-9); PROTEIN,URINE 2+ (NEGATIVE)
[2022-05-04 12:48] LABS: BACTERIA,URINE MODERATE /HPF; BILIRUBIN,URINE NEGATIVE (NEGATIVE); LEUKOCYTE ESTERASE ,URINE 1+ (NEGATIVE)
== END ==
LOC: LABNPT 12:31
PROVIDERS: ATTEND Family Medicine
DX: Z01.89 Encounter for other specified special examinations (principal)
CPT/HCPCS: 81000; 87088